=== PATIENT | female | born 1935 | race Caucasian/White ===

== ENCOUNTER 2022-11-11 14:30 | Outpatient (CLI) | payer MEDICARE, OTHER, SELFPAY ==
[2022-11-11 10:18] LABS: Albumin* 4.1 g/dL (3.3-5.0); Chloride* 108 mmol/L (96-114); Sodium* 141 mmol/L (135-149)
[2022-11-11 10:21] LABS: Alanine Aminotransferase* 21 U/L (4-35); Alkaline Phosphatase* 93 U/L (40-150); Aspartate Amino Transferase* 24 U/L (12-35); Bilirubin Total* 0.9 mg/dL (0.1-1.5); Blood Urea Nitrogen* 29 mg/dL (7-30); Carbon Dioxide* 28 mmol/L (20-32); Creatinine* 0.8 mg/dL (0.5-1.5); Estimated Glomerular Filt Rate 71 ml/min; Glucose* 82 mg/dL (60-115); Total Protein* 6.6 g/dL (6.0-8.3)
[2022-11-11 10:22] LABS: Calcium* 10.1 mg/dL (8.4-10.6); Potassium* 4.2 mmol/L (3.6-5.1)
== END 2022-11-11 14:31 | disposition home or self-care (01) ==
PROVIDERS: PCP Family Medicine; Visit Provider Family Medicine
DX: I10 Essential (primary) hypertension (principal)
CPT/HCPCS: 80053

== ENCOUNTER 2023-05-10 08:41 | Emergency (ER) | payer MEDICARE, OTHER, SELFPAY ==
[2023-05-10 08:51] VITALS: BP 151/57; PULSE 57; RESP 18; TEMP 36.7; O2SAT 95; BMI 32.3
--- NOTE | 2023-05-10 09:06 | ED_ITS ---
HPI - General Adult General Chief complaint: Headache/Migraine Stated complaint: Covid+ this morning Time Seen by Provider: 05/10/23 08:44 History of Present Illness HPI narrative: This 87-year-old female comes in stating that she tested for COVID at home yesterday and it was positive. Her symptoms started 3 days ago. She primarily feels fatigued and has a mild headache. She does not report any cough or shortness of breath. She comes in wanting to be sure that it is in fact COVID. Related Data Home Medications Medication Instructions Recorded Confirmed acetaminophen 650 mg 650 mg PO BID 05/14/22 05/10/23 tablet,extended release aspirin 325 mg tablet,delayed 325 mg PO DAILY 05/14/22 05/10/23 release cholecalciferol (vitamin D3) 25 25 mcg PO QDAY 05/14/22 05/10/23 mcg (1,000 unit) capsule multivitamin (Multiple Vitamins 1 tab PO QDAY 05/14/22 05/10/23 tablet) Osteo Bi-Flex PO .QD 11/13/22 12/24/22 Previous Rx's Medication Instructions Recorded atorvastatin 40 mg tablet 40 mg PO .Bedtime #90 tabs 05/14/22 diltiazem HCl 120 mg 120 mg PO DAILY #90 caps 05/14/22 capsule,extended release 24 hr losartan 25 mg tablet 25 mg PO DAILY #90 tabs 05/14/22 metoprolol succinate 50 mg 50 mg PO DAILY #90 tabs 05/14/22 tablet,extended release 24 hr hydrochlorothiazide 25 mg tablet 50 mg (2 x 25 mg) PO DAILY #180 11/14/22 tabs Allergies Allergy/AdvReac Type Severity Reaction Status Date / Time amoxicillin Allergy Mild Rash Verified 05/10/23 08:55 meloxicam AdvReac Mild upset Verified 05/10/23 08:55 stomach Review of Systems Status of ROS: Reports: 10 or more systems reviewed and unremarkable except as noted in History and below Narrative: Constitutional: No fevers, no weight gain or loss. Eyes: No discharge. No vision changes. HENT: No congestion, no sore throat, no ear pain. Cardiovascular: No chest pain, no palpitations. Respiratory: No shortness of breath, no wheezes, no cough. Gastrointestinal: No abdominal pain, no vomiting, no diarrhea. Genitourinary: No dysuria, no hematuria. Musculoskeletal: Normal range of motion. Skin: No rashes, no pruritis. Neurological: No dizziness, weakness, sensory change, speech change. Endo/Heme/Allergies: No bruising or bleeding. No polydipsia. Pysch: no suicidality, no anxiety, no insomnia. All other systems reviewed and are negative. [facility] Medical History (Updated 05/10/23 @ 09:46 by Rory Carreon MD) Osteoarthritis, multiple sites ?M15.9 - Polyosteoarthritis, unspecified (ICD-10) Obesity with body mass index (BMI) of 30.0 to 39.9 ?E66.9 - Obesity, unspecified (ICD-10) Arthropathy of multiple sites ?M12.9 - Arthropathy, unspecified (ICD-10) Squamous cell carcinoma of right lower leg (2018) ?C44.722 - Squamous cell carcinoma of skin of right lower limb, including hip (ICD-10) Hypertension ?I10 - Essential (primary) hypertension (ICD-10) Hyperlipidemia ?E78.5 - Hyperlipidemia, unspecified (ICD-10) Chronic lymphocytic leukemia (10/2017) ?C91.10 - Chronic lymphocytic leukemia of B-cell type not having achieved remission (ICD-10) Atrial fibrillation (03/26/19) ?I48.91 - Unspecified atrial fibrillation (ICD-10) Obstructive sleep apnea treated with continuous positive airway pressure (CPAP) (09/2012) ?G47.33 - Obstructive sleep apnea (adult) (pediatric) (ICD-10) ?Z99.89 - Dependence on other enabling machines and devices (ICD-10) Peripheral edema ?R60.9 - Edema, unspecified (ICD-10) History of recurrent urinary tract infection ?Z87.440 - Personal history of urinary (tract) infections (ICD-10) History of bone density study (2014) ?Z92.89 - Personal history of other medical treatment (ICD-10) Health care directive on file (01/10/21) ?Z78.9 - Other specified health status (ICD-10) Surgical History (Updated 11/13/22 @ 06:29 by Zoila Carnes MD) History of tonsillectomy (10/2017) ?Z90.89 - Acquired absence of other organs (ICD-10) History of laparoscopic cholecystectomy (10/27/06) ?Z90.49 - Acquired absence of other specified parts of digestive tract (ICD- 10) History of cataract extraction (07/2014) ?Z98.49 - Cataract extraction status, unspecified eye (ICD-10) History of blepharoplasty (02/2015) ?Z98.890 - Other specified postprocedural states (ICD-10) History of bilateral ligation of fallopian tubes (1979) ?Z98.51 - Tubal ligation status (ICD-10) History of squamous cell carcinoma excision (07/2019) ?Z98.890 - Other specified postprocedural states (ICD-10) ?Z85.9 - Personal history of malignant neoplasm, unspecified (ICD-10) History of dilation and curettage (1979) ?Z98.890 - Other specified postprocedural states (ICD-10) History of colonoscopy ?Z98.890 - Other specified postprocedural states (ICD-10) Family History (Updated 04/23/22 @ 08:24 by Jassi Clifton) Father Prostate cancer Stroke, Onset Age: 70 Brother Prostate cancer Mother Stroke, Onset Age: 70 Social History (Updated 11/13/22 @ 09:35 by Zoila Carnes MD) Narrative: , 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, 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, 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-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 consumes alcohol exercises 3 times per week-20 min elliptical Smoking Status: Never smoker Do you use any of these nicotine containing products: None Second hand tobacco smoke exposure: No How often do you have a drink containing alcohol: monthly or less How many standard drinks containing alcohol do you have on a typical day: 1 or 2 AUDIT-C Alcohol total score: 1 Non-prescribed substance use: denies use Little interest or pleasure in doing things: several days Feeling down, depressed, or hopeless: several days Exam Narrative: Exam Narrative: Constitutional: Well-developed, well-nourished, no acute distress. HEENT: Normocephalic, atraumatic. Neck: Normal range of motion. Nontender. Supple. Heart: Regular. No murmurs. Normal rate. Intact distal pulses. Lungs: Clear to auscultation. No chest discomfort. No wheezes, rhonchi, or rales. Abdomen: Normal bowel sounds. Nontender. No rebound tenderness. Genitalia: Deferred. Back: No midline tenderness. Normal range of motion. Extremities: Normal range of motion. No injury. Skin: Intact. No rash. Warm. No erythema or pallor. Neurologic: No altered sensation. No weakness. Alert and oriented. Psychiatric: No suicidality. No anxiety or depression. No insomnia. Nursing notes and vitals signs are reviewed. Const: Vital Signs, click to edit/add: Vital Signs - 24 hr 05/10/23 08:51 Temperature 98.1 F Pulse Rate [Pulse Oximeter] 57 L Respiratory Rate 18 Blood Pressure [Ri ght Upper Arm] 151/57 H Pulse Oximetry 95 Oxygen Delivery Me thod Room Air Course Vital Signs Vital signs: Initial Vital Signs Temperature 98.1 F 05/10/23 08:51 Temperature Source Temporal Artery Scan 05/10/23 08:51 Pulse Rate 57 L 05/10/23 08:51 Respiratory Rate 18 05/10/23 08:51 Blood Pressure 151/57 H 05/10/23 08:51 Blood Pressure Mean 88 05/10/23 08:51 Blood Pressure Position Semi-Fowlers 05/10/23 08:51 Pulse Oximetry 95 05/10/23 08:51 Oxygen Delivery Method Room Air 05/10/23 08:51 Vital Signs Temperature 98.1 F 05/10/23 08:51 Pulse Rate 57 L 05/10/23 08:51 Respiratory Rate 18 05/10/23 08:51 Blood Pressure 151/57 H 05/10/23 08:51 Pulse Oximetry 95 05/10/23 08:51 Oxygen Delivery Method Room Air 05/10/23 08:51 Temperature 98.1 F 05/10/23 08:51 Pulse Rate 57 L 05/10/23 08:51 Respiratory Rate 18 05/10/23 08:51 Blood Pressure 151/57 H 05/10/23 08:51 Pulse Oximetry 95 05/10/23 08:51 Oxygen Delivery Method Room Air 05/10/23 08:51 Medical Decision Making MDM Narrative Medical decision making narrative: This patient had a positive home test for COVID done yesterday and returns here to verify these results. Actually the COVID test done here was negative. The patient does have normal vital signs and is not showing any signs of shortness of breath. I advised her to use [id number] medicines as needed and direc ramy. Lab Data Labs: Lab Results 05/10/23 Range/Units 08:59 SARS-CoV-2 (PCR) Negative SARS-CoV-2 (Negative) Discharge Plan Discharge Clinical Impression: Headache Patient Disposition: Home w/ Parent or Adult Condition: Stable Additional Instructions: Use [id number] medicines as needed and directed. Follow up with MD return if worsening. Prescriptions: No Action cholecalciferol (vitamin D3) 25 mcg (1,000 unit) capsule 25 mcg PO QDAY aspirin 325 mg tablet,delayed release (DR/EC) 325 mg PO DAILY acetaminophen 650 mg tablet extended release 650 mg PO BID multivitamin [Multiple Vitamins] Tablet 1 tab PO QDAY atorvastatin 40 mg tablet 40 mg PO .Bedtime Qty: 90 4RF diltiazem HCl 120 mg capsule,extended release 24hr 120 mg PO DAILY Qty: 90 4RF losartan 25 mg tablet 25 mg PO DAILY Qty: 90 4RF metoprolol succinate 50 mg tablet extended release 24 hr 50 mg PO DAILY Qty: 90 4RF Osteo Bi-Flex PO .QD hydrochlorothiazide 25 mg tablet 50 mg PO DAILY Qty: 180 4RF Follow Up/Referrals: Zoila Carnes MD [Primary Care Provider] - Stand Alone Forms: [employer] Info Instructions
[2023-05-10 09:39] LABS: SARS PCR* Negative SARS-CoV-2 (Negative)
== END 2023-05-10 09:54 | disposition home or self-care (01) ==
PROVIDERS: Emergency Provider Emergency Medicine Emergency Medical Services; PCP Family Medicine
DX: Z20.822 Contact with and (suspected) exposure to COVID-19 (principal); R51.9 Headache, unspecified
CPT/HCPCS: 87635; 99282; 99283; 99284

== ENCOUNTER 2023-05-20 09:27 | Outpatient (CLI) | payer MEDICARE, OTHER, SELFPAY | END 2023-05-20 09:28 | disposition home or self-care (01) | PROVIDERS: PCP Family Medicine; Referring Provider Family Medicine; Visit Provider Family Medicine | DX: I10 Essential (primary) hypertension (principal); E78.5 Hyperlipidemia, unspecified; E55.9 Vitamin D deficiency, unspecified; E66.9 Obesity, unspecified | CPT/HCPCS: 80053; 80061; 82306 ==

== ENCOUNTER 2023-06-03 15:13 | Outpatient (CLI) | payer MEDICARE, OTHER, SELFPAY ==
--- NOTE | 2023-06-03 15:30 | CRLHL7_ITS ---
For Patients: As a result of the Century Cures Act, medical imaging exams and procedure reports are released immediately into your electronic medical record. You may view this report before your referring provider. If you have questions, please contact your health care provider. DXA BONE MINERAL DENSITY STUDY Current height (in): 67.5. Weight (lb): 206.0. Menopause age: 53. Ethnicity: White. 1. Have you had a previous hip or vertebral fracture? No. 2. Have you had any fractures during your adult life which did not result from significant trauma (e.g., auto accident)? No. 3. Did either of your parents have a hip fracture? Yes. 4. Do you smoke? No. 5. Have you ever taken Glucocorticoids? No. 6. Do you have rheumatoid arthritis? No. 7. Do you have secondary osteoporosis? No. 8. Do you drink 3 or more alcoholic drinks per day? No. 9. Are you being treated for osteoporosis? No. 10. Have you ever taken any of the following medications: Actonel, Evista, Fosamax, Miacalcin, Reclast, Boniva, Forteo, HRT (i.e. estrogen/hormone therapy), Protelos, Prolia, Vitamin D, Calcium, other ??? please specify. ANSWER: Yes, vitamin D. 11. Do you have any of the following medical conditions: Anorexia or bulimia, asthma or emphysema, end stage renal disease, hyperparathyroidism, any seizure disorders, cancer, inflammatory bowel diseases, hysterectomy, other ??? please specify. ANSWER: Yes, cancer. 12. What was your maximum height (inches)? 67.5. 13. Do you perform weight bearing exercise regularly? No. 14. Do you regularly consume dairy products? Yes. 15. Do you drink caffeinated beverages? Yes. 16. At what age did your period start? 9. 17. Are you premenopausal? No. 18. How many full term pregnancies have you had? Zero. 19. Have you ever missed your period for more than 6 months in a row (not including or menopause)? No. TECHNIQUE: Bone mineral density study was performed using the [employer]. FINDINGS: The results of the study expressed as bone mineral density (BMD) are as follows: Lumbar spine L1 to L4: BMD: 1.381 g/cm2. T-score: 3.0. Z-score: 5.9. Neck Left: BMD: 0.864 g/cm2. T-score: 0.1. Z-score: 2.7. Right: BMD: 0.908 g/cm2. T-score: 0.5. Z-score: 3.1. Total Left: BMD: 1.028 g/cm2. T-score: 0.7. Z-score: 3.0. Right: BMD: 1.004 g/cm2. T-score: 0.5. Z-score: 2.8. IMPRESSION: Normal bone density. OMARI MORGAN MD Diagnostic/Nuclear Medicine Radiologist [email or web address] CAROL/bhe be/Dictated by: Omari Morgan MD @ 06/03/2023 7:07:00 PM (Electronically Signed)
== END 2023-06-03 15:14 | disposition home or self-care (01) ==
LOC: RAD 15:14
PROVIDERS: PCP Family Medicine; Visit Provider Family Medicine
DX: Z78.0 Asymptomatic menopausal state (principal)
CPT/HCPCS: 77080

== ENCOUNTER 2023-08-06 11:01 | Outpatient (CLI) | payer MEDICARE, OTHER, SELFPAY ==
[2023-08-06 11:31] LABS: Basophils Percent Auto 0.4 % (0.0-3.0); Eosinophils Percent Auto 2.5 % (0.0-7.0); Hematocrit 44.8 % (33.0-51.0); Immature Granulocytes Pct Auto 0.2 %; Lymphocytes Percent Auto 51.6 % (20-44); Mean Corpuscular HGB Conc 34 gm/dL (32-36); Mean Corpuscular Hemoglobin 30 pg (26-34); Mean Corpuscular Volume 88 fL (80-100); Monocytes Percent Auto 8.4 % (0.0-11.0); Neutrophils Percent Auto 36.9 % (42.0-72.0); Platelet Count* 169 K/uL (140-440); RDW Coefficient of Variation % 13.2 % (11.5-15.5); Red Blood Count 5.09 m/uL (4.00-5.20); White Blood Count* 12.19 K/uL (4.50-11.00)
[2023-08-06 11:38] LABS: Slide Review Reflex No
[2023-08-06 11:50] LABS: Albumin* 4.1 g/dL (3.3-5.0)
[2023-08-06 11:51] LABS: Chloride* 108 mmol/L (96-114); Potassium* 4.2 mmol/L (3.6-5.1); Sodium* 142 mmol/L (135-149)
[2023-08-06 11:53] LABS: Bilirubin Total* 1.2 mg/dL (0.1-1.5); Creatinine* 0.9 mg/dL (0.5-1.5); Estimated Glomerular Filt Rate 61 ml/min
[2023-08-06 11:54] LABS: Alanine Aminotransferase* 21 U/L (4-35); Alkaline Phosphatase* 107 U/L (40-150); Anion Gap 8 mEq/L (7-15); Aspartate Amino Transferase* 29 U/L (12-35); Blood Urea Nitrogen* 38 mg/dL (7-30); Calcium* 10.7 mg/dL (8.4-10.6); Carbon Dioxide* 26 mmol/L (20-32); Glucose* 100 mg/dL (60-115); Lactate Dehydrogenase* 177 U/L (120-246)
== END 2023-08-06 11:02 | disposition home or self-care (01) ==
PROVIDERS: PCP Family Medicine
DX: C83.01 Small cell B-cell lymphoma, lymph nodes of head, face, and neck (principal)
CPT/HCPCS: 36415; 80053; 83615; 85025

== ENCOUNTER 2023-08-20 14:30 | Outpatient (RCR) | payer MEDICARE, OTHER, SELFPAY ==
--- NOTE | 2023-06-02 11:37 | PT.OPEX ---
PT [place] Outpatient Eval PT [facility] Outpatient Eval Start: 06/01/23 13:26 Freq: Status: Active Protocol: Document 06/02/23 08:03 AMS (Rec: 06/02/23 11:06 AMS [id number]) E-signed By Tiffany Silverio PT Physical Therapy Outpatient Evaluation Insurance Information Recert Due Date 08/26/23 Insurance Name Medicare B Medical Diagnosis Low back pain, unspecified Treating Diagnosis Low back pain M54.50 Muscle weakness M62.81 Referring MD Zoila Carnes MD Subjective Subjective Pt presents to physical therapy with chronic left- sided low back and buttock pain, which has been worse recently. It is usually when she stands longer than 5 minutes or is bent forward to perform household tasks. Denies trauma or injury to low back or hip and states pain has been present for over a year, coming on gradually. Denies numbness or tingling into the lower extremities, bowel or bladder changes, change in symptoms with coughing or sneezing, unrelenting night pain, or work-related injury. She has known widespread osteoarthritis, chronic lymphocytic leukemia (CLL), squamous cell carcinoma, chronic atrial fibrillation, hypertension, and hyperlipidemia. She had X-rays done in May, which revealed degenerative lumbar fact arthropathy in the lumbar spine and CAT scan about three weeks ago. She does take Tylenol as needed and that helped somewhat with her back. Not currently receiving any treatment for her CLL, but follows every 6 months at hematology clinic. Also recently had COVID at the end of April. 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 Pt previously had some spine pain six years ago, which resolved with physical therapy; however, this episode is in a different location. Sites and boundaries of pain: left posterior hip and buttock Nature of pain: sharp Easing factors: Tylenol, rest, sitting down Aggravating factors: standing for long periods, vacuuming, sweeping, bending forward Sleep disturbances: 5 hours/ night (CPAP), low back does not bother her for the most part. Stiffness in the morning , sleeps on left side due to right hip arthritis Previous treatments: physical therapy for previous LBP episode Current exercise: exercises 3 times per week - 20 min on seated elliptical, occasional free weights with 3 lb dumbbells, has tried classes at [address] Functional limitations: cleaning the toilet, emptying the senior ux designer, sweeping and vacuuming, lifting, standing for longer than 5 minutes Goals: Perform ADLs and standing for unlimited time without pain Falls: None in last year Pain Comments Currently 2/10, 8/10 this morning emptying senior ux designer, 0 /10 at best Date of Last Physician Visit 05/22/23 Current Work Status Retired 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 No antalgic gait noted BALANCE -Narrow stance: 10 sec, mild postural sway -Tandem stance: unable to assume or maintain position without assistance -Single leg stance: <1 sec B FUNCTIONAL MOBILITY Double leg squat: WNL, mild discomfort in right hip Glute bridge: unable to perform Transfers: Pt demonstrates difficulty rolling onto side to perform supine to sit transfer; instead sits straight up utilizing upper extremities for assist. Stairs: not assessed, pt utilizes elevator in apartment LUMBAR ROM Flexion: WNL, pain noted in left low back and buttock Extension: 50%, no pain Right Sidebendin%, no pain Left Sidebendin%, no pain Right rotation: 100%, no pain Left rotation: 100%, no pain REPEATED MOVEMENTS: Lumbar flexion: increased symptoms Lumbar extension: no change in symptoms, pain-free THORACIC ROM Flexion: WNL Extension: 50% Right Sidebendin% Left Sidebendin% Right rotation: 100% Left rotation: 100% HIP ROM (R/L) Flexion: 115 deg Extension: 10 deg Internal Rotation: WNL External Rotation: WNL Abduction: WNL LE MMT: Not formally assessed, =3/5 for all lower extremity muscle groups as demonstrated by ROM assessment, except hip extensors (2/5 bilaterally) Functional strength assessment : -5x Kbp-rk-sfemo: 15.5 sec -30-second STS: 9 reps -Glute bridge: unable Abdominal Strength: able to perform posterior pelvic tilt with cueing for TrA activation JOINT MOBILITY/PALPATION -Moderate tenderness noted in left posterior buttock and over sacrum and L4-L5. Mildly increased tone in left buttock area and lumbar paraspinals B . Mild hypomobility with posterior-anterior spring testing of lumbar and thoracic spine. SPECIAL TESTS -Straight leg raise: - -Crossed straight leg raise: - SI/HIP tests -DARSHAN: + bilateral -FADIR, + bilateral -Log roll: - TX: Patient was educated on anatomy, physiology as it relates to current condition and HEP with use of handout/ [employer]. Patient verbalizes understanding and agrees with POC/goals. -Discussed benefits of continued activity and maintaining gym membership. -Discussed progressions and regressions of all exercises in HEP -Soreness rules with goal of symptoms returning to baseline within 24 hours and avoiding onset of sharp pain or >2/10 increase from baseline -Educated pt on log roll technique for getting in and out of bed, option to purchase bedrail for cheap [employer] on [employer] Access Code: [email or web address] URL: [email or web address] Date: 06/02/2023 Prepared by: Tiffany Silverio Exercises - Supine March with Posterior Pelvic Tilt - 1 x daily - 7 x weekly - 3 sets - 10 reps. - Supine Figure 4 Piriformis Stretch - 1 x daily - 7 x weekly - 3 sets - 20-30 seconds hold - Sit to Stand Without Arm Support - 1 x daily - 4 x weekly - 3 sets - 10 reps Attempted prone hip extension on table and completed 10 sets B, but led to onset of sharp 3/10 pain after 6 reps. Lumbar spine rotations in supine x 10 reps B Functional Test Performed & Score Modified Oswestry: 12/50 or 24 % Assessment Assessment/Impression Pt is a pleasant 87-year-old female who presents with concerns of chronic low back pain with high severity and irritability. Pt has medical history significant for chronic lymphocytic leukemia, atrial fibrillation, right > left hip osteoarthritis, lumbar facet arthropathy, and previous episode of low back pain that resolved with physical therapy. On exam, patient demonstrates notable objective findings including decreased lumbar ROM, impaired balance, pain with repeated lumbar flexion, decreased bed mobility, and decreased general lower extremity and trunk strength, leading to difficulties with bending, lifting, household tasks, and standing longer than 5 minutes . Patient is appropriate for skilled physical therapy services to address the above deficits. Pt was agreeable with plan of care and goals established. 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 Pt will demonstrate consistent HEP compliance in 2 sessions to ensure progress in reaching established goals during course of care. 2. Pt will be able to stand for >30 minutes to perform ADLs without pain in 8 sessions. 3. Pt will exhibit 20% improvement on the Modified Oswestry Outcome measure to demonstrate functional improvement and progress towards goals in 8 sessions. 4. Pt will improve 30-second sit to stand by 3 repetitions to improve lower extremity strength in 4 sessions. 5. Pt will demonstrate pain- free lumbar flexion in 4-5 sessions to perform ADLs without pain. Coordination/Communication With Referral Source Treatment Plan/Direct Interventions Gait Training,Manual Therapy, Neuromuscular Re-ed,Self-Care/ Home Management,Therapeutic Activities,Therapeutic Exercises Frequency/Duration 1x/week for 8-10 sessions Patient Will Be Discharged From Therapy Completion of LTG(s),Skills Plateau Evaluation Billing Untimed Code Treatment Minutes 30 Complexity Moderate Certification Information Initial Certification Date 06/02/23 Ending Certification Date 08/26/23 Provider Signature Shows Agreement With POC & Medical Necessity Physician Signature & Date Requested Please Sign/Date Here Physician Comment/Change : Physician NPI Number #
== END 2023-08-21 08:59 | disposition home or self-care (01) ==
PROVIDERS: PCP Family Medicine; Visit Provider Family Medicine
DX: M54.50 Low back pain, unspecified (principal); M62.81 Muscle weakness (generalized); R26.81 Unsteadiness on feet; Z51.89 Encounter for other specified aftercare
CPT/HCPCS: 97110; 97112; 97140; 97162

== ENCOUNTER 2023-11-19 08:30 | Outpatient (CLI) | payer MEDICARE, OTHER, SELFPAY ==
--- OUTSIDE RECORDS SUMMARY | 2023-11-25 17:50 | XMS_ITS | Clinical Summary ---
Author Name Unknown Organization [facility] Address [address] [place] [address] Care Team Providers Care Physician Office Assistant Name Role Phone Elsewhere, Pcp Primary Care Provider Unavailabl e Source Comments Patient records contain information from all sites at [facility]. For routine questions regarding patient records, call [phone] during business hours, M-F 8:00 AM - 5:00 PM Central Time. Record requests for emergency care only can be directed to [phone] at any time.[facility] Allergies Active Allergy Reactions Criticality Noted Date Comments Amoxicillin Rash 05/05/2018 Meloxicam GI intolerance 10/12/2017 Penicillin Rash 02/15/2010 Medications Medication Sig Dispensed Refills Start Date End Date Status GLUCOSAMINE/CHONDR MADDOX A SOD (OSTEO BI-FLEX ORAL) Take 2 tablets by mouth daily. 0 06/25/2016 Active hydroCHLOROthiazide (for_HYDRODIURIL) 25 mg tablet Take 1 tablet by mouth daily. 0 06/08/2017 Active acetaminophen (for_TYLENOL 8 HR) 650 mg ER tablet Take 1,300 mg by mouth every 8 (eight) hours. 0 Active losartan (COZAAR) 25 mg tablet Take 1 tablet by mouth every morning. 0 10/27/2017 Active multivitamin tablet Take 1 tablet by mouth every morning. 0 10/27/2017 Active rosuvastatin (CRESTOR) 10 mg tablet Take 10 mg by mouth daily. 0 Active metoprolol succinate (TOPROL-XL) 50 mg 24 hr tablet TAKE 1 TABLET BY MOUTH ONCE DAILY. DO NOT CRUSH OR CHEW 90 tablet 0 05/26/2020 Active dilTIAZem CD (CARDIZEM CD/CARTIA XT) 120 mg 24 hr capsule TAKE 1 CAPSULE BY MOUTH EVERY DAY 90 capsule 0 05/26/2020 Active UNABLE TO FIND Vitamin D - unsure of units 0 Active atorvastatin (LIPITOR) 40 mg tablet Take 40 mg by mouth at bedtime. 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 I discussed the the management of atrial fibrillation in detail including rate control and rhythm control strategies and indications for rhythm control. Given the self-limited episode of atrial fibrillation I recommended continue with rate control strategy. I discussed with her that if she has symptomatic recurrences of atrial fibrillation one could consider rhythm control strategy. I discussed with her the risk of thromboembolism with atrial fibrillation and indication for anticoagulation and the options. She is agreeable to starting on a DOAC. Will send a prescription for Eliquis after reviewing the EKG. Continue metoprolol, diltiazem at current doses. 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 I asked her to call if her home blood pressures at cardiac rehab per greater than 130. Continue current antihypertensives. Hypercholesterolemia 10/27/2017 Last Assessment & Plan: Continue Crestor. Immunizations Name Administration Dates Next Due Influenza high dose QV(65 ye ars or older) (PF) 08/07/2020 Influenza, Unspecified 08/20/2016,2014,08/21/2014,2012,09/09/2012,08/14/2011,08/28/2010,0 2009,09/02/1999,09/03/1998 PCV13 06/13/2015 PPSV23 09/30/2004 Td (Adult), adsorbed 05/28/2000 Tdap 02/18/2010 Family History Medical History Relation Name Comments Atrial fibrillation Brother Gene Heart failure Brother Gene Neuropathy Brother Gene Basal cell carcinoma Father Dementia Father Stroke Father Dementia Mother Stroke Mother Relation Name Status Comments Brother Gene Father Mother Social History Tobacco Use Types Packs/Day Years Used Date Smoking Tobacco: Never Smokeless Tobacco: Never Humiliation, Afraid, Rape, and Kick questionnair e Answer Date Recorded Within the last year, have y ou been afraid of your partner or ex-partner? No 08/30/2022 Within the last year, have y ou been humiliated or emotionally abused in other ways by your partner or ex-partner? No Within the last year, have y ou been kicked, hit, slapped, or otherwise physically hurt by your partner or ex-partner? No 08/30/2022 Within the last year, have y ou been raped or forced to have any kind of sexual activity by your partner or ex-partner? No 08/30/2022 Social Connection and Isolat ion Panel [NHANES] Answer Date Recorded In a typical week, how many times do you talk on the phone with family, friends, or neighbors? Three times a week 08/30/2022 How often do you get togethe r with friends or relatives? Three times a week 08/30/2022 How often do you attend chur or temple services? More than 4 times per year 08/30/2022 Do you belong to any clubs o r organizations such as zoroastrian groups, unions, fraternal or athletic groups, or school groups? Yes 08/30/2022 How often do you attend meet ings of the clubs or organizations you belong to? Patient declined 08/30/2022 Are you , , di vorced, , never , or living with a partner? 08/30/2022 AUDIT-C Answer Date Recorded Q1: How often do you have a drink containing alc ohol? Monthly or less 08/30/2022 Q2: How many drinks containi ng alcohol do you have on a typical day when you are drinking? 1 or 2 08/30/2022 Q3: How often do you have si x or more drinks on one occasion? Never 08/30/2022 Overall Financial Resource Strain (CARDIA) Answe r Date Recorded How hard is it for you to pa y for the very basics like food, housing, medical care, and heating? Not very hard 08/30/2022 PHQ-2 Answer Date Recorded PHQ-2 Score 0 04/21/2019 [facility] - Occupational Stress Questionnaire Answer Date Recorded Do you feel stress - tense, restless, nervous, or anxious, or unable to sleep at night because your mind is troubled all the time - these days? Only a little 08/30/2022 Exercise Vital Sign Answer Date Recorde d On average, how many days pe r week do you engage in moderate to strenuous exercise (like a brisk walk)? 3 days 08/30/2022 On average, how many minutes do you engage in exercise at this level? 30 min 08/30/2022 Hunger Vital Sign Answer Date Recorded Within the past 12 months, y ou worried that your food would run out before you got the money to buy more. Never true 08/30/20 22 Within the past 12 months, t he food you bought just didn't last and you didn't have money to get more. Never true 08/30/2022 PRAPARE - Transportation Answer Date Re corded In the past 12 months, has l ack of transportation kept you from medical appointments or from getting medications? No 08/16 In the past 12 months, has l ack of transportation kept you from meetings, work, or from getting things needed for daily living? No 08/30/2022 Housing Stability Vital Sign Answer Castro e Recorded In the last 12 months, was t here a time when you were not able to pay the mortgage or rent on time? No 08/30/2022 In the last 12 months, how many places have you lived? 2 08/30/2022 In the last 12 months, was t here a time when you did not have a steady place to sleep or slept in a correction (including now)? No 08/30/2022 Nutrition Answer Date Recorded Nutrition: EVOO Fat Source Yes 08/30 On average, how many serving s of fruits and vegetables do you eat per day (serving size is equal to 1 cup or approximately the size of a tennis ball)? 4-5 08/30/2022 Dental Answer Date Recorded Dental: Regular Dentist Yes 05/30/20 Employment Answer Date Recorded Employment status Retired 08/30/2022 Education Answer Date Recorded What is the highest level of school you have completed or the highest degree you have received? 12th grade 09/08/2019 Sex and Gender Information Value Date Recorded Sex Assigned at Female 01/11/2022 3:49 PM RN INTERNATIONAL Gender Identity Female 04/24/2018 2:50 PM CDT Sexual Orientation Straight 04/24/2018 2: 50 PM CDT Last Filed Vital Signs Vital Sign Reading Time Taken Comments Blood Pressure 147/67 08/13/2023 9:06 AM CDT Pulse 75 08/13/2023 9:06 AM CDT Temperature 35.7 ??C (96.3 ??F) 08/13/2023 9:06 AM CD T Respiratory Rate 16 10/28/2017 12:1 7 PM RN INTERNATIONAL Oxygen Saturation 95% 04/21/2019 11: 08 AM CDT Inhaled Oxygen Concentration - - Weight 95.6 kg (210 lb 12.2 oz) 08/13/2023 9:06 AM CDT Height 171.4 cm (5' 7.48) 08/13/2023 9:06 AM CD T Body Mass Index 32.54 08/13/2023 9:06 AM CDT Plan of Treatment Health Maintenance Due Date Last Done Comments Depression Screening (Annual PHQ-2) 11/16/2022 Creatinine Level (Kidney Function Test) 08/06/2024 08/06/2023, 02/18/2023, 02/18/2023, Additional history exists Potassium Level 08/06/2024 08/06/2023, 04/0 03/2023, 09/04/2022, Additional history exists Sodium Level 08/06/2024 08/06/2023, 08/3 , 04/19/2014, Additional history exists DTaP,Tdap,and Td Vaccines (3 - Td or Tdap) 05/14/2032 05/14/2022, 02/18/2010, 02/18/2010, Additional history exists Pneumococcal vaccine (65+ years) Completed 06/13/2015, 03/18/2015, 09/30/2004, Additional history exists Zoster Vaccines Completed 02/18/2021, 11/17/2020 Fall Risk Screen (Annual) Completed 02/18/2023 COVID-19 Vaccine Completed 08/26/2023, 03/2022, 03/31/2022, Additional history exists Influenza Vaccine Completed 08/26/2023, , 07/04/2021, Additional history exists HPV Vaccines Aged Out No longer eligi ble based on patient's age to complete this topic Medical Devices Implanted Type Area Financial Quantitative Analyst Device Identifier Shelf Expiration Date Model / Serial / Lot Ocular Lens Ocular Lens Eye Advance Directives For more information, please contact: [phone] Documents on File Type Date Recorded Patient Kennel Supervisor Expl anation Advance Directives 06/03/2021 10:40 AM [facility] Care Directive Advance Directives 12/11/2017 12:00 AM Leg acy document. See document viewer. Advance Directives 07/01/2016 12:00 AM Leg acy document. See document viewer. Healthcare Agents on File Name Relationship Healthcare Agent Relationshi p Communication Alexandr Del Angel Spouse Health Care Agent Luis Del Angel First Alternate Health Care Agent Nataliya Becerra Second Alternate Health Care Agent Care Teams Physician Office Assistant Relationship Specialty Start Date End Date Elsewhere, Pcp PCP - General Internal Medicine 04/27/23
--- OUTSIDE RECORDS SUMMARY | 2023-11-25 17:51 | XMS_ITS ---
Author Name Unknown Organization [facility] [place] [facility] Address [address] [place] [address] Care Team Providers Care Concrete Crusher Loader Operator Name Role Phone Unavailable Unavailable Unavailable Surgery Details Not on file Complications Check Surgery Details section. Procedure Estimated Blood Loss Check Surgery Details section. Procedure Findings Check Surgery Details section. Procedure Specimens Taken Check Surgery Details section.
--- OUTSIDE RECORDS SUMMARY | 2023-11-25 17:51 | XMS_ITS | Encounter Summary ---
Author Name Unknown Organization [facility] Address [address] [place] [address] Care Team Providers Care Coffin Maker Name Role Phone Elsewhere, Pcp Primary Care Provider Unavailabl e Encounter Details Date Type Department Care Team (Late st Contact Info) Description 05/25/2023 Clinical Communication Division of Hematology in [place], [place] [address] [place] [address] Theron Monsalve M.D., Ph.D. [address] [place] [address] Social History Tobacco Use Types Packs/Day Years [...] 08/30/2022 How often do you attend chur ch or jewish services? More than 4 times per year 08/30/2022 Do you belong to any clubs o r organizations such as gnosticism groups, unions, fraternal or athletic groups, or [...] Answer Date Recorded PHQ-2 Score 0 04/21/2019 [facility] - Occupational Stress Questionnaire Answer Date [...] place to sleep or slept in a prison (including now)? 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/2022 3:49 PM ACID POLYMERIZATION OPERATOR Gender Identity Female 04/24/2018 2:50 PM CDT Sexual Orientation Straight 04/24/2018 2: 50 PM CDT documented as of this encounter Plan of Treatment Not on file documented as of this encounter Visit Diagnoses Not on filedocumented in this encounter Additional Health Concerns Assessment Noted Time PHQ-9 Depression Total Score: 4 06/13/20 15 8:44 AM CDT documented as of this encounter Care Teams Coffin Maker Relationship Specialty Start Date End Date Elsewhere, Pcp PCP - General Internal Medicine 04/27/23 documented as of this encounter
--- OUTSIDE RECORDS SUMMARY | 2023-11-25 17:51 | XMS_ITS | Encounter Summary ---
Author Name Unknown Organization [facility] Address [address] [place] [address] Care Team Providers Care Food And Beverage Service Manager Name Role Phone Elsewhere, Pcp Primary Care Provider Unavailabl e Reason for Referral * Outpatient (Routine) - Authorized Specialty Diagnoses / Procedures Referred By Contac t Referred To Contact Hematology Oncology Theron Monsalve M.D., Ph.D. [address] [place] [phone] [facility] Referral ID Status Reason Start Date Expiration Date V isits Requested Visits Authorized [id number] Authorized 08/13/2023 08/12/2026 1 1 Scheduling Instructions Patient would like blood draw in [place] if possible Reason for Visit * Outpatient (Routine) - Closed Specialty Diagnoses / Procedures Referred By Contac t Referred To Contact Hematology Oncology Theron Monsalve M.D., Ph.D. [address] [place] [phone] [facility] Referral ID Status Reason Start Date Expiration Date Visits Re quested Visits Authorized [id number] Closed 02/18/2023 02/17/2026 1 1 Encounter Details Date Type Department Care Team ([facility] st Contact Info) Description 08/13/2023 9:15 AM CDT Office Visit Division of Hematology in [place], [place] [address] [place] [address] Theron Monsalve M.D., Ph.D. 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 More than 4 times per year 08/30/2022 Do you belong to any clubs o r organizations such as latter-day groups, unions, fraternal or athletic groups, or [...] Answer Date Recorded PHQ-2 Score 0 04/21/2019 [facility] - [...] place to sleep or slept in a fci (including now)? No 08/30/2022 Nutrition Answer Date Recorded Nutrition: EVOO Fat Source Yes 08/30 On average, how many serving s of fruits and vegetables do you eat per day (serving size is equal to 1 cup or approximately the size of a tennis ball)? 4-5 08/30/2022 Dental Answer Date Recorded Dental: Regular Dentist Yes 05/30/20 21 Employment Answer Date Recorded Employment status Retired 08/30/2022 Education Answer Date Recorded What is the highest level of school you have completed or the highest degree you have received? 12th grade 09/08/2019 Sex and Gender Information Value Date Recorded Sex Assigned at Female 01/11/2022 3:49 PM ARC TRIMMER Gender Identity Female 04/24/2018 2:50 PM CDT Sexual Orientation Straight 04/24/2018 2: 50 PM CDT documented as of this encounter Last Filed Vital Signs Vital Sign Reading Time Taken Comments Blood Pressure 147/67 08/13/2023 9:06 AM CDT Pulse 75 08/13/2023 9:06 AM CDT Temperature 35.7 ??C (96.3 ??F) 08/13/2023 9:06 AM CD T Respiratory Rate - - Oxygen Saturation - - Inhaled Oxygen Concentration - - Weight 95.6 kg (210 lb 12.2 oz) 08/13/2023 9:06 AM CDT Height 171.4 cm (5' 7.48) 08/13/2023 9:06 AM CD T Body Mass Index 32.54 08/13/2023 9:06 AM CDT documented in this encounter Progress Notes * Theron Monsalve M.D., Ph.D. - 08/13/2023 9:15 AM CDT SUBJECTIVE Referring Provider Theron Monsalve M.D., Ph.D. CHIEF COMPLAINT/REASON FOR VISIT Six-month follow-up for patient with history of CLL HISTORY OF PRESENT ILLNESS Oncology History Overview Note The patient was noted in late September, to have tonsillar asymmetry. She was having no pain ordysphagia associated with this. She underwent a CT of the neck demonstrating confirming the abnormality. She was referred to ENT and subsequently underwent tonsillectomy on October 28, 2017. 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 On blood analysis, it was notable that the patient had a peripheral blood lymphocytosis. She also had mild hypercalcemia. 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) 10/28/2017 Initial Diagnosis CLL/SLL CD20 dim positivity, CD19 was positive. On blood analysis, it was notable that the patient had a peripheral blood lymphocytosis. Observation I am seeing the patient back with her present during evaluation. She currently has an ECOG performance status of 0. She denies B symptoms. She has had no hospitalizations nor infections. Her greatest complaint at present is left-sided back pain for which she is undergoing physical therapy which has move the pain to the right side. The following portions of the patient's history were reviewed and updated as appropriate: allergies, current medications, family history, medical history, social history, surgical history, and problem list. REVIEW OF SYSTEMS Musculoskeletal: Positive for back pain. The following systems were negative: Constitutional, Skin, Eyes, ENT, Respiratory, Cardiovascular, Gastrointestinal, Genitourinary, Hematologic, Neurological, Psychiatric OBJECTIVE Weight: 95.6 kg Height: 171.4 cm BSA (Calculated - sq m): 2.13 sq meters BMI (Calculated): 32.5 kg/m?? Blood Pressure: 147/67 BP Location: Left arm Patient Position: Sitting Pulse Rate: 75 Temperature: 35.7 ??C Temp Source: Tympanic PHYSICAL EXAM Vitals reviewed. Constitutional Appearance: She is well-developed and well-nourished. HENT Head: Normocephalic and atraumatic. Nose: Nose normal. Mouth/Throat: Mouth: Oropharynx is clear and moist. Eyes Extraocular Movements: EOM normal. Conjunctiva/sclera: Conjunctivae normal. Pupils: Pupils are equal, round, and reactive to light. Neck Thyroid: No thyromegaly. Cardiovascular Rate and Rhythm: Normal rate and regular rhythm. Pulses: Intact distal pulses. Heart sounds: Normal heart sounds. Pulmonary Effort: Pulmonary effort is normal. Breath sounds: Normal breath sounds. Abdominal Palpations: Abdomen is soft. There is no hepatosplenomegaly or mass. Tenderness: There is no abdominal tenderness. Musculoskeletal General: No edema. Normal range of motion. Cervical back: Normal range of motion. Lymphadenopathy Cervical: No cervical adenopathy. Upper Body: No axillary adenopathy present. Lower Body: No right inguinal adenopathy. No left inguinal adenopathy. Skin General: Skin is warm. Findings: No erythema. Neurological Mental Status: She is alert and oriented to person, place, and time. Deep Tendon Reflexes: Reflexes are normal and symmetric. Psychiatric Mood and Affect: Mood and affect normal. Behavior: Behavior normal. Thought Content: Thought content normal. Judgment: Judgment normal. DIAGNOSTICS I have reviewed the recent relevant labs. No results found. No results found for this or any previous visit (from the past 72 hour(s)). 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 Her hemoglobin is normal, platelets are normal, WBC is stable at 12.19 relative to 12.8 on 02/18/2023. Her LDH remains within normal limits. With this in mind I would recommend ongoing expectant management. I would see her back in 6 months with blood work and a physical exam. She is aware if she were to develop concerns in the interim, I would see her sooner. Follow-up: Return to clinic in 6 months Education We discussed the diagnosis and treatment plan in detail. The patient expressed understanding of thecontent. No apparent learning barriers were identified; learning preferences include listening. I spent 30 minutes face to face and non-face to face caring for the patient today. Signed by: Theron Monsalve M.D., Ph.D. 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 (HCC) Expected: 02/11/2024 (Approximate), Expires: 11/12/2024 Calcium, Total Lab Routine 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 (HCC) Expected: 02/11/2024 (Approximate), Expires: 11/12/2024 CBC with Differential, Blood Lab Routine 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 (HCC) Expected: 02/11/2024 (Approximate), Expires: 11/12/2024 Creatinine with Estimated GFR Lab Routine 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 (HCC) Expected: 02/11/2024 (Approximate), Expires: 11/12/2024 LD (Lactate Dehydrogenase) Lab Routine 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 (HCC) Expected: 02/11/2024 (Approximate), Expires: 11/12/2024 Potassium Lab Routine 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 (HCC) Expected: 02/11/2024 (Approximate), Expires: 11/12/2024 Scheduled Referrals Name Type Priority Associated Diagnoses Order Schedule Hematology office visit (clinic) [facility]; CLL; General Outpatient Referral Routine Expected: 02/11/2024 (Approximate), Expires: 11/12/2024 documented as of this encounter Visit Diagnoses Diagnosis 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
--- OUTSIDE RECORDS SUMMARY | 2023-11-25 17:51 | XMS_ITS | Encounter Summary ---
Author Name Unknown Organization [facility] Address [address] [place] [address] Care Team Providers Care Artist Scientific Name Role Phone Elsewhere, Pcp Primary Care Provider Unavailabl e Encounter Details Date Type Department Care Team (Late st Contact Info) Description 07/09/2005 Historical Ophthalmology [facility]ST O[facility] Fransico Pederson M.D. 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 Does states that every once in awhile she notices that her right eye does become blurred. No other visual changes or concerns at this time. No flashing lights. IMPRESSION / REPORT / PLAN #1 Posterior vitreous collapse right eye Has posterior vitreous detachment right eye. No retinal breaks. Discussed symptoms of retinal detachment-to be seen immediately for these. #2 Cataract both eyes Mild, not visually signficant, observe. #3 Epiretinal membrane right>left Vision not affected enough to warrant surgery. Recommend continued annual exams at home, return here if vision worsens or other concerns arise. DIAGNOSIS #1 Posterior vitreous collapse right eye #2 Cataract both eyes #3 Epiretinal membrane right>left CDM Reports - [employer] Id: [id number] Status: Fnl documented in this encounter Plan of Treatment Not on file documented as of this encounter Visit Diagnoses Not on filedocumented in this encounter Care Teams Artist Scientific Relationship Specialty Start Date End Date Elsewhere, Pcp PCP - General Internal Medicine 04/27/23 documented as of this encounter
--- OUTSIDE RECORDS SUMMARY | 2023-11-25 17:51 | XMS_ITS | Encounter Summary ---
Author Name Unknown Organization [facility] Address [address] [place] [address] Care Team Providers Care Psychology Teacher Name Role Phone Franchesca Beauchamp APRN, F.N.P. 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 [address] [place] [phone] [facility] Referral ID Status Reason Start Date Expiration Date Visits Re quested Visits Authorized [id number] Closed 09/04/2022 09/04/2023 1 1 Encounter Details Date Type Department Care Team (Latest Contact Info) Description 02/18/2023 8:20 AM CDT - 02/18/2023 11:59 PM CDT Hospital Encounter Department of Radiology, [facility], in [place], [place] [address] [place] [phone] Eva Hanley APRN, C.N.P., D.N.P. 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 More than 4 times per year 08/30/2022 Do you belong to any clubs o r organizations such as jainism groups, unions, fraternal or athletic groups, or [...] Answer Date Recorded PHQ-2 Score 0 04/21/2019 [facility] [place] [facility] Occupat ional Health - Occupational Stress [...] place to sleep or slept in a m[facility]p (including now)? 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 Gender Identity Female 04/24/2018 2:50 PM CDT Sexual Orientation Straight 04/24/2018 2: 50 PM CDT documented as of this encounter Last Filed Vital Signs Vital Sign Reading Time Taken Comments Blood Pressure - - Pulse - - Temperature - - Respiratory Rate - - Oxygen Saturation - - Inhaled Oxygen Concentration - - Weight 96 kg (211 lb 10.3 oz) 02/18/2023 8:00 AM CDT Height - - Body Mass Index 32.64 09/04/2022 3:16 PM CDT documented in this encounter Medications at Time of Discharge Medication Sig Dispensed Refills Start Date End Date acetaminophen (for_TYLENOL 8 HR) 650 mg ER tablet Take 1,300 mg by mouth every 8 (eight) hours. 0 atorvastatin (LIPITOR) 40 mg tablet Take 40 mg by mouth at bedtime. 0 12/22/2022 dilTIAZem CD (CARDIZEM CD/CARTIA XT) 120 mg 24 hr capsule TAKE 1 CAPSULE BY MOUTH EVERY DAY 90 capsule 0 05/26/2020 GLUCOSAMINE/CHONDR MADDOX A SOD (OSTEO BI-FLEX ORAL) Take 2 tablets by mouth daily. 0 06/25/2016 hydroCHLOROthiazide (for_HYDRODIURIL) 25 mg tablet Take 1 tablet by mouth daily. 0 06/08/2017 losartan (COZAAR) 25 mg tablet Take 1 tablet by mouth every morning. 0 10/27/2017 metoprolol succinate (TOPROL-XL) 50 mg 24 hr tablet TAKE 1 TABLET BY MOUTH ONCE DAILY. DO NOT CRUSH OR CHEW 90 tablet 0 05/26/2020 multivitamin tablet Take 1 tablet by mouth every morning. 0 10/27/2017 rosuvastatin (CRESTOR) 10 mg tablet Take 10 mg by mouth daily. 0 UNABLE TO FIND Vitamin D - unsure of units 0 ascorbic acid-bioflavonoids 1,000-100 mg tablet extended release Take 1 tablet by mouth daily. 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) CT CHEST WITH IV CONTRAST RAD - Routine (most inpatients and all outpatients) 02/18/2023 9:19 AM CDT 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 Narrative 02/18/2023 10:48 AM CDT EXAM: ??CT ABDOMEN PELVIS WITH IV CONTRAST COMPARISON: ??CT abdomen pelvis 12/07/2020. FINDINGS: ??Spleen is normal in size. Calcified splenic granulomas. No suspicious lymphadenopathy. No suspicious hepatic lesions. Small hepatic cysts. Cholecystectomy. Fatty pancreatic atrophy. Adrenal glands are unremarkable. Renal cysts. Nondilated loops of bowel. Small gastroesophageal hiatal hernia. Colonic diverticulosis. No free fluid. Degenerative changes of the spine, SI joints, and hips. No suspicious osseous lesions. This examination was performed in conjunction with a CT of the chest, which will be reported separately. Procedure Note Ryann Martinez M.D. - 02/18/2023 EXAM: CT ABDOMEN PELVIS WITH IV CONTRAST COMPARISON: CT abdomen pelvis 12/07/2020. FINDINGS: Spleen is normal in size. Calcified splenic granulomas. No suspicious lymphadenopathy. No suspicious hepatic lesions. Small hepatic cysts. Cholecystectomy. Fattypancreatic atrophy. Adrenal glands are unremarkable. Renal cysts. Nondilated loops of bowel.Small gastroesophageal hiatal hernia. Colonic diverticulosis. No free fluid. Degenerative changes of the spine, SI joints, and hips. No suspiciousosseous lesions. This examination was performed in conjunction with a CT of the chest,which will be reported separately. IMPRESSION: No evidence of lymphoma in the abdomen or pelvis. Eva Hanley APRN, C.N.P., D.N.P. IMG CT PROCEDURES * CT Chest with IV Contrast (02/18/2023 9:19 AM CDT) Anatomical Region Laterality Modality Chest, Thoracic RST LOS, Tho racic ARZ LOS, Thoracic ARZ LOS, Thoracic FLA LOS N/A Computed Tomography, Compute d Tomography 02/18/2023 9:15 AM CDT Impressions 02/18/2023 10:20 AM CDT Stable examination. No findings to specifically suggest residual or recurrent lymphoma within the chest. Narrative 02/18/2023 10:20 AM CDT EXAM: CT CHEST WITH IV CONTRAST the study was obtained in association with a CT of the abdomen and pelvis. That study is reported separately. COMPARISON: [facility] examinations from 12/07/2020, 11/26/2018, and 12/10/2017. FINDINGS: A 9 mm nodule within the lingula centrally (series 3, image 304) is stable from prior studies. Bilateral calcified granulomas. A few additional tiny nodules are not calcified (for example right upper lobe, series 3, image 138; left upper lobe, series 3, image 138) but are also stable from prior studies. These nodules should be benign. Mild basilar fibrosis, similar to previous studies. 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 Mild enlargement of the central pulmonary arteries is stable. Mild vascular calcification. No significant mediastinal or hilar lymph node enlargement. Calcified left hilar lymph node. Heterogeneous nodular enlargement of the thyroid gland is stable. Small hiatal hernia. Benign-appearing breast calcifications bilaterally. A small focus of sclerosis within the left scapula is stable. Procedure Note Jason Vega M.D., Ph.D. - 02/18/2023 EXAM: CT CHEST WITH IV CONTRAST the study was obtained in association witha CT of the abdomen and pelvis. That study is reported separately. COMPARISON: [facility] examinations from 12/07/2020, 11/26/2018, and12/10/2017. FINDINGS: A 9 mm nodule within the lingula centrally (series 3, image 304) is stablefrom prior studies. Bilateral calcified granulomas. A few additional tiny nodules are notcalcified (for example right upper lobe, series 3, image 138; left upper lobe, series 3, image 138) butare also stable from prior studies. These nodules should be benign. Mild basilar fibrosis,similar to previous studies. Partial anomalous pulmonary venous return from the left superior pulmonaryvein, as previously demonstrated. Mild enlargement of the central pulmonary arteries isstable. Mild vascular calcification. No significant mediastinal or hilar lymphnode enlargement. Calcified left hilar lymph node. Heterogeneous nodular enlargement of the thyroidgland is stable. Small hiatal hernia. Benign-appearing breast calcifications bilaterally. A small focus ofsclerosis within the left scapula is stable. IMPRESSION: Stable examination. No findings to specifically suggest residual orrecurrent lymphoma within the chest. Eva Hanley APRN, C.N.P., D.N.P. IMG CT PROCEDURES * Creatinine, POCT (02/18/2023 8:46 AM CDT) [facility] Creatinine, POCT, B 0.8 0.6 - 1.0 mg/dL 02/18/2023 8:48 AM CDT [facility] Comment: ----ADDITIONAL INFORMATION---- Performed at the Point of Care Blood 02/18/2023 8:46 AM CDT 02/18/2023 8:48 AM CDT Unknown Provider LAB POCT ORDERABLES - DEVICE POC [facility] [address] [place] [address], [facility] POC [address] [place] [address] * Creatinine, POCT (02/18/2023 8:46 AM CDT) [facility] Estimated GFR (eGFR), POCT 71 >=60 mL/min/BSA 02/18/2023 8:48 AM CDT [facility] Comment: Estimated GFR calculated using the 2020 CKD_EPI creatinine equation. 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) documented in this encounter Administered Medications Inactive Administered Medications - up to 3 most recent administrations Medication Order MAR Action Action Date Dose Rate Site iohexoL 300 mg iodine/mL solution 150 mL (OMNIPAQUE) 150 mL, intravenous, Once in imaging, contrast, Starting on Thu02/18/23 at 0909, For 1 dose Given 02/18/2023 9:11 AM CDT 140 mL sodium chloride (PF) 0.9 % injection 1-100 mL 1-100 mL, intravenous, Once, On Thu02/18/23 at 0845, For 1 dose, Imaging Protocol Orders Given 02/18/2023 9:07 AM CDT 50 mL documented in this encounter Additional Health Concerns Assessment Noted Time PHQ-9 Depression Total Score: 4 06/13/20 15 8:44 AM CDT documented as of this encounter Care Teams Psychology Teacher Relationship Specialty Start Date End Date Franchesca Beauchamp APRN, F.N.P. [address] [facility] [address] [place] [phone] PCP - General 04/30/17 04/26/23 documented as of this encounter
--- OUTSIDE RECORDS SUMMARY | 2023-11-25 17:51 | XMS_ITS | Referral Summary ---
Author Name Unknown Organization [facility] Address [address] [place] [address] Care Team Providers Care Office Administration Instructor Name Role Phone Elsewhere, Pcp Primary Care Provider Unavailabl e Source Comments Patient records contain information from all sites at [facility]. For routine questions regarding patient records, call [phone] during business hours, M-F 8:00 AM - 5:00 PM Central Time. Record requests for emergency care only can be directed to [phone] at any time.[facility] Allergies Active Allergy Reactions Criticality Noted Date [...] 09/30/2004 Td (Adult), adsorbed 05/28/2000 Tdap 02/18/2010 Social History Tobacco Use Types Packs/Day Years [...] week 08/30/2022 How often do you attend up health system or roman catholic services? More than 4 times per year 08/30/2022 Do you belong to any clubs o r organizations such as synagogue groups, unions, fraternal or athletic groups, or [...] Answer Date Recorded PHQ-2 Score 0 04/21/2019 [facility] [place] [facility] Occupat ional [facility] - Occupational Stress Questionnaire Answer Date Recorded [...] place to sleep or slept in a half-way (including now)? 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 Oxygen Saturation 95% 04/21/2019 11: 08 AM CDT Inhaled Oxygen Concentration - - Weight 95.6 kg (210 lb 12.2 oz) 08/13/2023 9:06 AM CDT Height 171.4 cm (5' 7.48) 08/13/2023 9:06 AM CD T Body Mass Index 32.54 08/13/2023 9:06 AM CDT Plan of Treatment Not on file Medical Devices Implanted Type Area Manager Mission Device Identifier Shelf Expiration Date Model / Serial / Lot Ocular Lens Ocular Lens Eye Advance Directives For more information, please contact: [phone] Documents on File Type Date Recorded Patient Metal Bumper Expl anation Advance Directives 06/03/2021 10:40 AM [facility] Care Directive Advance Directives 12/11/2017 12:00 AM Leg acy document. See document viewer. Advance Directives 07/01/2016 12:00 AM Leg acy document. See document viewer. Healthcare Agents on File Name Relationship [facility]r Del Angel Spouse Health Care Agent Luis Del Angel First Alternate Health Care Agent Nataliya Becerra Second Alternate Health Care Agent Care Teams Office Administration Instructor Relationship Specialty Start Date End Date Elsewhere, Pcp PCP - General Internal Medicine 04/27/23
--- OUTSIDE RECORDS SUMMARY | 2023-11-25 17:51 | XMS_ITS | Encounter Summary ---
Author Name Unknown Organization [facility] Address [address] [place] [address] Care Team Providers Care Data Collection Technician Name Role Phone Franchesca Beauchamp APRN, F.N.P. Primary Care Provid er Encounter Details Date Type Department Care Team (Latest Contact Info) Description 02/18/2023 7:41 AM CDT - 02/18/2023 8:19 AM CDT Hospital Encounter Department of Laboratory Medicine and Pathology, [facility], in [place], [place] [address] [place] [address] Eva Hanley APRN, C.N.P., D.N.P. [address] [place] [address] Small Cell B Cell Lymphoma Lymph Nodes [...] week 08/30/2022 How often do you attend [facility] or shinto services? More than 4 times per year 08/30/2022 Do you belong to any clubs o r organizations such as muslim groups, unions, fraternal or athletic groups, or [...] Answer Date Recorded PHQ-2 Score 0 04/21/2019 [facility] [place] of Occupat ional Health - Occupational Stress [...] place to sleep or slept in a longterm (including now)? 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) ASPARTATE AMINOTRANSFERASE (AST), S/P Routine 02/18/2023 7:49 AM CDT 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) POTASSIUM, S/P Routine 02/18/2023 7:49 AM CDT 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) ALKALINE PHOSPHATASE, S/P Routine 02/18/2023 7:49 AM CDT 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) LACTATE DEHYDROGENASE (LD), S Routine 02/18/2023 7:49 AM CDT 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) CREATININE WITH EGFR, S/P Routine 02/18/2023 7:49 AM CDT 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) CALCIUM, TOT, S/P Routine 02/18/2023 7:4 9 AM CDT 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) BILIRUBIN, TOT, S/P Routine 02/18/2023 7 :49 AM CDT 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) documented in this encounter Results * (ABNORMAL) SPSMA Result (02/18/2023 7:49 AM CDT) Neutrophilic Segs and Bands 41(L) 50 - 75 % 02/18/2023 9:46 AM CDT [facility] Lymphocytes 53(H) 18 - 42 % 02/18/2023 9:46 AM CDT [facility] Monocytes 2 2 - 11 % 02/18/2023 9:46 AM CDT [facility] Eosinophils 3 1 - 3 % 02/18/2023 9:46 AM CDT [facility] Basophils 1 0 - 2 % 02/18/2023 9:46 AM CDT [facility] Fragile Cells Moderate 02/18/2023 9:46 AM CDT [facility] Manual Absolute Neutrophil Count 5.25 1.56 - 6.45 x10(9)/L 02/18/2023 9:46 AM CDT [facility] Comment: ----ADDITIONAL INFORMATION---- The manual absolute neutrophil count is derived from a manual differential count and therefore is not exactly comparable to the automated absolute neutrophil count. Interpretation SeeComment 02/18/2023 9:46 AM CDT [facility] Comment: The blood smear findings are consistent with the previous diagnosis of chronic lymphoproliferative disorder. Reviewed by: Ethan 02/18/2023 9:46 AM CDT [facility] Blood 02/18/2023 7:49 AM CDT 02/18/2023 8:13 AM CDT Na Gonzales APRN.N.P., D.N.P. LAB BLOOD ADD-ON Performing Organization Address City/[facility]/ZIP Co de Phone Number [facility] [address] [place] [address], [facility] [address] [place] [address] * Potassium (02/18/2023 7:49 AM CDT) Potassium, S 4.2 3.6 - 5.2 mmol/L 02/18/2023 8:55 AM CDT DT Blood (Blood, Venous) 02/18/2023 7:49 AM CDT 02/18/2023 8:28 AM CDT Eva Hanley APRN, C.N.P., D.N.P. LAB BLOOD ADD-ON Performing Organization Address City/[facility]/ZIP Co de Phone Number [facility] [address] [place] [address] * LD (Lactate Dehydrogenase) (02/18/2023 7:49 AM CDT) Lactate Dehydrogenase (LD), S 180 122 - 222 U/L 02/18/2023 8:55 AM CDT DTL Blood (Blood, Venous) 02/18/2023 7:49 AM CDT 02/18/2023 8:28 AM CDT Na Gonzales APRN.N.P., D.N.P. LAB BLOOD NON ADD-ON Performing Organization Address City/[facility] [place] [address] * Creatinine with Estimated GFR (02/18/2023 7:49 AM CDT) Creatinine 0.88 0.59 - 1.04 mg/dL 02/18/2023 8:55 AM CDT DTL Estimated GFR (eGFR) 64 >=60 mL/min/BSA 02/18/2023 8:55 AM CDT [facility] Comment: Estimated GFR calculated using the 2020 CKD_EPI creatinine equation. Blood (Blood, Venous) 02/18/2023 7:49 AM CDT 02/18/2023 8:28 AM CDT Na Gonzales APRN.N.P., D.N.P. LAB BLOOD ADD-ON Performing Organization Address [facility] [place] [address] * (ABNORMAL) CBC with Differential, Blood (02/18/2023 7:49 AM CDT) Hemoglobin 15.8(H) 11.6 - 15.0 g/dL 02/18/2023 8:32 AM CDT DTL Hematocrit 47.6(H) 35.5 - 44.9 % 02/18/2023 8:32 AM CDT DTL Erythrocytes 5.36(H) 3.92 - 5.13 x10(12)/L 02/18/2023 8:32 AM CDT DTL MCV 88.8 78.2 - 97.9 fL 02/18/2023 8:32 AM CDT DTL RBC Distrib Width 13.5 12.2 - 16.1 % 02/18/2023 8:32 AM CDT DTL Platelet Count 178 157 - 371 x10(9)/L 02/18/2023 8:32 AM CDT DTL Leukocytes 12.8(H) 3.4 - 9.6 x10(9)/L 02/18/2023 8:32 AM CDT DTL Neutrophils SeeComment 1.56 - 6.45 x10(9)/L 02/18/2023 9:45 AM CDT DTL Comment:Auto-diff results no t valid. See manual differential. Blood (Blood, Venous) 02/18/2023 7:49 AM CDT 02/18/2023 8:13 AM CDT Eva Hanley APRN, Na.N.P., D.N.P. LAB BLOOD ADD-ON Performing Organization Address City/[facility]/[place] [address] * (ABNORMAL) Calcium, Total (02/18/2023 7:49 AM CDT) Calcium, Total, S 10.8(H) 8.8 - 10.2 mg/dL 02/18/2023 9:04 AM CDT DTL Blood (Blood, Venous) 02/18/2023 7:49 AM CDT 02/18/2023 8:28 AM CDT Eva Hanley APRN, C.N.P., D.N.P. LAB BLOOD ADD-ON Performing Organization Address City/[facility]/ZIP Co de Phone Number [facility] [address] [place] [address] * Bilirubin, Total (02/18/2023 7:49 AM CDT) Bilirubin, Total, S 1.2 <=1.2 mg/dL 02/18/2023 8:55 AM CDT DTL Blood (Blood, Venous) 02/18/2023 7:49 AM CDT 02/18/2023 8:28 AM CDT Na Gonzales APRN.N.P., D.N.P. LAB BLOOD ADD-ON [facility] [address] [place] [address], [facility] [address] [place] [address] * AST (Aspartate Aminotransferase) (02/18/2023 7:49 AM CDT) Aspartate Aminotransferase (AST), S 19 8 - 43 U/L 02/18/2023 8:55 AM CDT DT Blood (Blood, Venous) 02/18/2023 7:49 AM CDT 02/18/2023 8:28 AM CDT Na Gonzales APRN.N.P., D.N.P. LAB BLOOD ADD-ON Performing Organization Address City/[facility]/ZIP Co de Phone Number [facility] [address] [place] [address], [facility] [address] [place] [address] * Alkaline Phosphatase (02/18/2023 7:49 AM CDT) Alkaline Phosphatase, S 100 35 - 104 U/L 02/18/2023 8:55 AM CDT DT Blood (Blood, Venous) 02/18/2023 7:49 AM CDT 02/18/2023 8:28 AM CDT Na Gonzales APRN.N.P., D.N.P. 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 [address] [facility] [address] [place] [address] PCP - General 04/30/17 04/26/23 documented as of this encounter
--- OUTSIDE RECORDS SUMMARY | 2023-11-25 17:51 | XMS_ITS ---
Author Name Unknown Organization [facility] Address [address] [place] [address] Care Team Providers Care Nailing Machine Feeder Name Role Phone Elsewhere, Pcp Primary Care Provider Unavailabl e Active Problems Problem Noted Date Diagnosed Date [...] 10/27/2017 Last Assessment & Plan: Continue Crestor. Current Oncology Plans No current plan information found. Past Plans No past plan information found. Radiation Treatments * No radiation treatments are documented for this [facility]. Treatments may have been administered in another system. Lifetime Dose Tracking * Chemical Lifetime Dose Automatic Entry Manual Entr y Radiation 333.9 mGy 333.9 mGy 0 mGy Fluoro Time 2.85 minutes 2.85 minutes 0 minutes
--- OUTSIDE RECORDS SUMMARY | 2023-11-25 17:51 | XMS_ITS | Encounter Summary ---
Author Name Unknown Organization [facility] Address [address] [place] [address] Care Team Providers Care Seafood Service Team Member Name Role Phone Elsewhere, Pcp Primary Care Provider Unavailabl e Reason for Visit * Reason Onset Date Comments External Lab Entry 08/06/2023 Encounter Details Date Type Department Care Team (Latest Contact Info) Description 08/07/2023 Clinical Communication Division of Hematology in [place], [place] [address] [place] [address] Theron Monsalve M.D., Ph.D. [address] [place] [address] External Lab Entry Social History Tobacco Use Types Packs/Day Years [...] week 08/30/2022 How often do you attend [facility] or mu-ism services? More than 4 times per year 08/30/2022 Do you belong to any clubs o r organizations such as mormonism groups, unions, fraternal or athletic groups, or [...] Answer Date Recorded PHQ-2 Score 0 04/21/2019 [facility] of Occupat ional Health - Occupational [...] money to buy more. Never true 08/30/20 Within the past 12 months, t he [...] place to sleep or slept in a fdc (including now)? 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 - 08/07/2023 3:48 PM CDT Labs reviewed and entered into the patient's chart in preparation for scheduled appointments next week. * Telephone Encounter - Li Riggs Rukhsana - 08/07/2023 2:28 PM CDT Outside labs collected on 08/06/2023 have been received. The fax has been scanned into the patient record via [employer], and the CBC results are as noted below. Hemoglobin: 15.0 Hematocrit: 44.8 WBC: 12.19 ANC: 4.5 Platelets: 169 Please note: Are there additional labs reported on the outside report? Yes documented in this encounter Plan of Treatment Not on file documented as of this encounter Procedures Procedure Name Priority Date/Time Associated Diagnosis Comments HEMATOLOGY/ONCOLOGY - BLOOD, EXTERNAL LAB RESULTS Routine 08/06/2023 documented in this encounter Results * Hematology/Oncology - Blood, External Lab Results (08/06/2023) EXT Hemoglobin 15.0 SCANN ED REPORT EXT Hematocrit 44.8 SCANN ED REPORT EXT Erythrocytes 5.09 SCA NNED REPORT EXT MCV 88 SCANNED REPORT EXT Leukocytes 12.19 SCANN ED REPORT EXT Absolute Neutrophil Count 4.5 SCANNED REPORT EXT Platelet Count 169 S CANNED REPORT EXT AST 29 SCANNED REPORT EXT ALT 21 SCANNED REPORT EXT Alkaline Phosphatase 107 SCANNED REPORT EXT Bilirubin, Total 1.2 mg/dL SCANNED REPORT EXT Lactate Dehydrogenase (LD), S 177 SCANNED REPORT EXT Sodium 142 mmol/L SCANNED REPORT EXT Potassium 4.2 SCANNE D REPORT EXT Calcium, Total 10.7 S CANNED REPORT EXT Creatinine 0.9 mg/dL SCANN ED REPORT EXT Total Protein 7.0 SC ANNED REPORT EXT Albumin 4.1 g/dL SCANNED REPORT EXT Chloride 108 SCANNED REPORT EXT Carbohydrate Ag 19-9, S 38 SCANNED REPORT Blood 08/06/2023 Historical Provider LAB BLOOD NON ADD-ON SCANNED REPORT documented in this encounter Visit Diagnoses Not on filedocumented in this encounter Additional Health Concerns Assessment Noted Time PHQ-9 Depression Total Score: 4 06/13/20 15 8:44 AM CDT documented as of this encounter Care Teams Seafood Service Team Member Relationship Specialty Start Date End Date Elsewhere, Pcp PCP - General Internal Medicine 04/27/23 documented as of this encounter
--- OUTSIDE RECORDS SUMMARY | 2023-11-25 17:51 | XMS_ITS | Encounter Summary ---
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 [address] [place] [address] [facility] Referral ID Status Reason Start Date Expiration Date V isits Requested Visits Authorized [id number] Authorized 05/22/2023 05/21/2024 1 1 Encounter Details Date Type Department Care Team (Late st Contact Info) Description 05/22/2023 [facility] [address] [place] [address] Zoila Carnes M.D. 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 More than 4 times per [...] Answer Date Recorded PHQ-2 Score 0 04/21/2019 [place] of Occupat ional Health - Occupational Stress [...] place to sleep or slept in a long-term (including now)? 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
--- OUTSIDE RECORDS SUMMARY | 2023-11-25 17:51 | XMS_ITS | Encounter Summary ---
Author Name Unknown Organization [facility] Address [address] [place] [id number] Care Team Providers Care Wastewater Analyst Lab Analyst Name Role Phone Franchesca Beauchamp APRN, F.N.P. Primary Care Provid er Reason for Referral * Outpatient (Routine) - Closed Specialty Diagnoses / Procedures Referred By Ricky walters Referred To Contact Hematology Oncology Theron Monsalve M.D., Ph.D. [address] [place] [phone] [facility] Referral ID Status Reason Start Date Expiration Date Visits Re quested Visits Authorized [id number] Closed 02/18/2023 02/17/2026 1 1 Reason for Visit * Outpatient (Routine) - Closed Specialty Diagnoses / Procedures Referred By Ricky walters Referred To Contact Hematology Oncology Eva Hanley APRN, C.N.P., D.N.P. [address] [place] [phone] [facility] Referral ID Status Reason Start Date Expiration Date Visits Re quested Visits Authorized [id number] Closed 09/04/2022 09/03/2025 1 1 Encounter Details Date Type Department Care Team (Late st Contact Info) Description 02/18/2023 1:30 PM CDT Office Visit Division of Hematology in [place], [place] [address] [place] [phone] Theron Monsalve M.D., Ph.D. 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 More than 4 times per year 08/30/2022 Do you belong to any clubs o r organizations such as evangelical groups, unions, fraternal or athletic groups, or [...] Answer Date Recorded PHQ-2 Score 0 04/21/2019 [facility] - Occupational Stress [...] place to sleep or slept in a halfway (including now)? 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 Gender Identity Female 04/24/2018 2:50 PM CDT Sexual Orientation Straight 04/24/2018 2: 50 PM CDT documented as of this encounter Last Filed Vital Signs Vital Sign Reading Time Taken Comments Blood Pressure 147/82 02/18/2023 1:12 PM CDT Pulse 63 02/18/2023 1:12 PM CDT Temperature 35.6 ??C (96.1 ??F) 02/18/2023 1:12 PM CD T Respiratory Rate - - Oxygen Saturation - - Inhaled Oxygen Concentration - - Weight 96.1 kg (211 lb 12 oz) 02/18/2023 1:12 PM CDT Height 171.4 cm (5' 7.48) 02/18/2023 1:12 PM CD T Body Mass Index 32.69 02/18/2023 1:12 PM CDT documented in this encounter Progress Notes * Theron Monsalve M.D., Ph.D. - 02/18/2023 1:30 PM CDT SUBJECTIVE Referring Provider Eva aHnley APRN, C.N.P., D.N.P. CHIEF COMPLAINT/REASON FOR VISIT Disease status evaluation for patient with CLL/SLL HISTORY OF PRESENT ILLNESS Oncology History Overview [...] denies B symptoms. She has had no recent hospitalizations nor infections. She does remark that occasionally she will have days where she feels extremely fatigued which then will improve in a day or so. She does have a known history of intermittent AFib. The following portions of the patient's history were reviewed and updated as appropriate: allergies, current medications, family history, medical history, social history, surgical history, and problem list. REVIEW OF SYSTEMS The following systems were negative: Constitutional, Skin, Eyes, ENT, Respiratory, Cardiovascular, Gastrointestinal, Genitourinary, Hematologic, Musculoskeletal, Neurological, Psychiatric OBJECTIVE Weight: 96.1 kg Height: 171.4 cm BSA (Calculated - sq m): 2.14 sq meters BMI (Calculated): 32.7 kg/m?? Blood Pressure: 147/82 BP Location: Left arm Patient Position: Sitting Pulse Rate: 63 Temperature: 35.6 ??C Temp Source: Tympanic PHYSICAL EXAM Vitals [...] DIAGNOSTICS I have reviewed the recent relevant labs and CT. CT Chest with IV Contrast Result Date: 02/18/2023 Impression: Stable examination. No findings to specifically suggest residual or recurrent lymphoma within the chest. CT Abdomen Pelvis with IV Contrast Result Date: 02/18/2023 Impression: No evidence of lymphoma in the abdomen or pelvis. Recent Results (from the past 72 hour(s)) Alkaline Phosphatase Collection Time: 02/18/23 7:49 AM Result Value Alkaline Phosphatase, S 100 AST (Aspartate Aminotransferase) Collection Time: 02/18/23 7:49 AM Result Value Aspartate Aminotransferase (AST), S 19 Bilirubin, Total Collection Time: 02/18/23 7:49 AM Result Value Bilirubin, Total, S 1.2 Calcium, Total Collection Time: 02/18/23 7:49 AM Result Value Calcium, Total, S 10.8 (H) CBC with Differential, Blood Collection Time: 02/18/23 7:49 AM Result Value Hemoglobin 15.8 (H) Hematocrit 47.6 (H) Erythrocytes 5.36 (H) MCV 88.8 RBC Distrib Width 13.5 Platelet Count 178 Leukocytes 12.8 (H) Neutrophils SeeComment Creatinine with Estimated GFR Collection Time: 02/18/23 7:49 AM Result Value Creatinine 0.88 Estimated GFR (eGFR) 64 LD (Lactate Dehydrogenase) Collection Time: 02/18/23 7:49 AM Result Value Lactate Dehydrogenase (LD), S 180 Potassium Collection Time: 02/18/23 7:49 AM Result Value Potassium, S 4.2 SPSMA Result Collection Time: 02/18/23 7:49 AM Result Value Neutrophilic Segs and Bands 41 (L) Lymphocytes 53 (H) Monocytes 2 Eosinophils 3 Basophils 1 Fragile Cells Moderate Manual Absolute Neutrophil Count 5.25 Interpretation SeeComment Reviewed by: Tech Creatinine, POCT Collection Time: 02/18/23 8:46 AM Result Value Estimated GFR (eGFR), POCT 71 Creatinine, POCT Collection Time: 02/18/23 8:46 AM Result Value Creatinine, POCT, B 0.8 ASSESSMENT / PLAN #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 I reviewed her blood work showing a lymphocytosis that is not dramatically changed from prior. There is no anemia or thrombocytopenia. LDH within normal limits. With this in mind I would recommend she continue in a pha se of expectant management. I will see her back in 6 months with blood work and a physical exam. She is aware if she were to develop concerns in the interim, I would see her sooner. #2 Atrial Fibrillation Paroxysmal (HCC) I did remark to the patient that it is possible that her days of severe fatigue may be related to intermittent atrial fibrillation. The patient indicated that she is able to check her pulse. I did indicate that she may want to visit with her primary care regarding this. She verbalized understanding. Follow-up: Return to clinic in 6 months Education We discussed the diagnosis and treatment plan in detail. The patient expressed understanding of thecontent. No apparent learning barriers were identified; learning preferences include listening. I personally spent over half of a total 30 minutes face to face with the patient in counseling and discussion and/or coordination of care as described above. Signed by: Theron Monsalve M.D., Ph.D. 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) Expected: 08/20/2023 (Approximate), Expires: 05/20/2024 Calcium, Total Lab Routine 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) Expected: 08/20/2023 (Approximate), Expires: 05/20/2024 CBC with Differential, Blood Lab Routine 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) Expected: 08/20/2023 (Approximate), Expires: 05/20/2024 Creatinine with Estimated GFR Lab Routine 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) Expected: 08/20/2023 (Approximate), Expires: 05/20/2024 LD (Lactate Dehydrogenase) Lab Routine 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) Expected: 08/20/2023 (Approximate), Expires: 05/20/2024 Potassium Lab Routine 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) Expected: 08/20/2023 (Approximate), Expires: 05/20/2024 Scheduled Referrals Name Type Priority Associated Diagnoses Order Schedule Hematology office visit (clinic) [facility]; CLL; General Outpatient Referral Routine Expected: 08/20/2023 (Approximate), Expires: 05/20/2024 documented as of this encounter Visit Diagnoses Diagnosis 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 [address] [facility] [address] [place] [phone] PCP - General 04/30/17 04/26/23 documented as of this encounter
--- OUTSIDE RECORDS SUMMARY | 2023-11-25 17:52 | XMS_ITS | Clinical Summary ---
Author Name Unknown Organization [facility] Address [place], [place] [address] Care Team Providers Care Human Resources Operations Coordinator Name Role Phone Zoila Carnes MD Primary Care Provider + Allergies Active Allergy Reactions Criticality Noted Date Comments Meloxicam GI Upset 10/12/2017 Penicillins Rash 02/15/2010 Medications Medication Sig Dispensed Refills Start Date End Date Status aspirin 325 mg tablet Take 1 Tablet (325 mg) by mouth once daily with a meal. 0 12/10/2022 Active hydroCHLOROthiazide (HCTZ) 25 mg tablet Take 50 mg by mouth once daily. 0 08/13/2022 Active rosuvastatin (CRESTOR) 10 mg tablet Take 40 mg by mouth once daily. 0 Active acetaminophen SR (TYLENOL ARTHRITIS) 650 mg Extended-Release tablet Take 1,300 mg by mouth every 8 hours. 0 Active losartan (COZAAR) 25 mg tablet Take 25 mg by mouth once daily. 0 11/14/2022 Active metoprolol succinate (TOPROL XL) 50 mg sustained-release tablet Take 50 mg by mouth once daily. 0 08/24/2022 Active dilTIAZem CD (CARDIZEM CD) 120 mg extended release 24 hr capsule Take 120 mg by mouth once daily. 0 08/13/2022 Active Social History Tobacco Use Types Packs/Day Years Used Date Smoking Tobacco: Never Smokeless Tobacco: Never Tobacco Cessation:Counseling Given: Yes Social Connections Answer Date Recorded Frequency of Communication with Friends and Fami ly Not on file 11/16/2021 Financial Resource Strain Answer Date R ecorded Difficulty of Paying Living Expenses Not on file 11/16/2021 Difficulty of Paying Living Expenses Not on file 11/16/2021 Sex and Gender Information Value Date Recorded Sex Assigned at Not on file Gender Identity Not on file Sexual Orientation Not on file Obstetrics History Last Filed Vital Signs Vital Sign Reading Time Taken Comments Blood Pressure - - Pulse 60 12/10/2022 11:09 AM CHIEF PSYCHOLOGY Temperature - - Respiratory Rate - - Oxygen Saturation 96% 12/10/2022 11:09 AM CHIEF PSYCHOLOGY Inhaled Oxygen Concentration - - Weight 97.1 kg (214 lb) 12/10/2022 11:09 AM CHIEF PSYCHOLOGY Height - - Body Mass Index - - Plan of Treatment Health Maintenance Due Date Last Done Comments COVID-19 vaccine series (#1) 01/31/1936 Tdap 1946 Depression screening for age 12+ 1947 BMI (ht and wt on same day) for age 18+ 1953 Tetanus booster 1955 Zoster (shingles) series for age 50+ (1 of 2) 08/02/19 85 DEXA/DXA scan for age 65+ 2000 Medicare Wellness for age 65+ 2000 Pneumococcal series for age 65+ (1 of 1 - PCV) 000 Influenza for age 65+ 07/17/2023 Care Teams Human Resources Operations Coordinator Relationship Specialty Start Date End Date Zoila Carnes MD [address] [place] [address] PCP - General Family Practice 12/13/19
== END 2023-11-19 08:31 | disposition home or self-care (01) ==
LOC: NFLDREF 11-25 17:49
PROVIDERS: PCP Family Medicine; Referring Provider Family Medicine; Visit Provider Family Medicine
DX: I10 Essential (primary) hypertension (principal)
CPT/HCPCS: 80053

== ENCOUNTER 2023-12-08 01:45 | Emergency (ER) | payer MEDICARE, OTHER, SELFPAY ==
[2023-12-08 02:05] VITALS: BP 141/82; PULSE 101; RESP 20; TEMP 36.8; O2SAT 92; BMI 31.3
--- NOTE | 2023-12-08 02:31 | ED.GENADULT ---
HPI - General Adult General Chief complaint: Unspecified Complaint, Adult Stated complaint: Dehydration, Covid + Time Seen by Provider: 12/08/23 01:47 History of Present Illness HPI narrative: 88-year-old female presents with a 4 day history of worsening weakness and sore throat. She has a notable history of prior AFib and tonsillar lymphoma. Reports that she initially started feeling unwell 4 days ago, took a home COVID test 3 days ago which was positive. had been ill a few days prior to herself. She has a very poor appetite and is starting to feel weaker. There is no chest pain, severe shortness of breath, nausea or vomiting. Notes decreased appetite and that her urine started becoming dark yesterday. Admits to not really drinking enough fluids. She has continued to take all of her cardiac medications as prescribed and is not noticing any palpitations, dyspnea on exertion or cough. Has not tried taking any medication to help with the sore throat. Does not believe she is running fevers. Think she could benefit from IV fluids due to the fact that she is feeling weaker and has not been able to take in adequate fluids. No falls, no neurological or mental status changes. No abdominal pain, no cardiac symptoms. She has had at least 4 COVID vaccines. No history of chronic lung disease. Past medical history notable for AFib and prior lymphoma in remission. Home medications are atorvastatin, diltiazem, hydrochlorothiazide, losartan and metoprolol. She is only on aspirin for anticoagulation, having previously been on Eliquis but stopped due to cost. It sounds like there was an insurance formulary change that was confusing for her and she never went back to that class of medication. Nonsmoker. No pertinent travel. ROS notable for the generalized, HEENT symptoms as described above, otherwise denies times 12 systems. Related Data Home Medications Medication Instructions Recorded Confirmed aspirin 325 mg tablet,delayed 325 mg PO DAILY 05/14/22 12/08/23 release cholecalciferol (vitamin D3) 25 25 mcg PO QDAY 05/14/22 12/08/23 mcg (1,000 unit) capsule multivitamin (Multiple Vitamins 1 tab PO QDAY 05/14/22 11/24/23 tablet) Osteo Bi-Flex PO .QD 11/13/22 11/24/23 acetaminophen 650 mg 650 mg PO BID PRN 11/24/23 12/08/23 tablet,extended release Previous Rx's Medication Instructions Recorded atorvastatin 40 mg tablet 40 mg PO .Bedtime #90 tabs 05/22/23 diltiazem HCl 120 mg 120 mg PO DAILY #90 caps 05/22/23 capsule,extended release 24 hr hydrochlorothiazide 25 mg tablet 25 mg PO QDAY #90 tabs 05/22/23 losartan 25 mg tablet 25 mg PO DAILY #90 tabs 05/22/23 metoprolol succinate 50 mg 50 mg PO DAILY #90 tabs 05/22/23 tablet,extended release 24 hr Allergies Allergy/AdvReac Type Severity Reaction Status Date / Time amoxicillin Allergy Mild Rash Verified 11/24/23 08:48 meloxicam AdvReac Mild upset Verified 11/24/23 08:48 stomach PFSH [facility] Medical History Osteoarthritis, multiple sites ?M15.9 - Polyosteoarthritis, unspecified (ICD-10) Obesity with body mass index (BMI) of 30.0 to 39.9 ?E66.9 - Obesity, unspecified (ICD-10) Squamous cell carcinoma of right lower leg (2018) ?C44.722 - Squamous cell carcinoma of skin of right lower limb, including hip (ICD-10) Hypertension ?I10 - Essential (primary) hypertension (ICD-10) Hyperlipidemia ?E78.5 - Hyperlipidemia, unspecified (ICD-10) Chronic lymphocytic leukemia (10/2017) ?C91.10 - Chronic lymphocytic leukemia of B-cell type not having achieved remission (ICD-10) Atrial fibrillation (03/26/19) ?I48.91 - Unspecified atrial fibrillation (ICD-10) Obstructive sleep apnea treated with continuous positive airway pressure (CPAP) (09/2012) ?G47.33 - Obstructive sleep apnea (adult) (pediatric) (ICD-10) ?Z99.89 - Dependence on other enabling machines and devices (ICD-10) Peripheral edema ?R60.9 - Edema, unspecified (ICD-10) History of recurrent urinary tract infection ?Z87.440 - Personal history of urinary (tract) infections (ICD-10) History of bone density study (2022) ?Z92.89 - Personal history of other medical treatment (ICD-10) Health care directive on file (02/25/21) ?Z78.9 - Other specified health status (ICD-10) Surgical History History of tonsillectomy (10/2017) ?Z90.89 - Acquired absence of other organs (ICD-10) History of laparoscopic cholecystectomy (10/27/06) ?Z90.49 - Acquired absence of other specified parts of digestive tract (ICD-10) History of cataract extraction (07/2014) ?Z98.49 - Cataract extraction status, unspecified eye (ICD-10) History of blepharoplasty (02/2015) ?Z98.890 - Other specified postprocedural states (ICD-10) History of bilateral ligation of fallopian tubes (1979) ?Z98.51 - Tubal ligation status (ICD-10) History of squamous cell carcinoma excision (07/2019) ?Z98.890 - Other specified postprocedural states (ICD-10) ?Z85.9 - Personal history of malignant neoplasm, unspecified (ICD-10) History of dilation and curettage (1979) ?Z98.890 - Other specified postprocedural states (ICD-10) History of colonoscopy ?Z98.890 - Other specified postprocedural states (ICD-10) Family History Father Prostate cancer Stroke, Onset Age: 70 Brother Prostate cancer Mother Stroke, Onset Age: 70 Social History Narrative: , 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, 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, 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-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 consumes alcohol exercises 2-3 times per week-30 min elliptical [address] What is your current living situation?: I presently have a place to live Problems where you live: pests, such as bugs, ants, or mice In the past 12 months, utilities in danger of being shut off: no In past 12 months, lack of transportation kept you from medical appts, meetings, work, or getting things needed for daily living: no In the past 12 mos, have been you worried that your food would run out before you had money to buy more?: never true In the past 12 mos, the food you bought just didn't last and you didn't have money to buy more?: never true Smoking Status: Never smoker Do you use any of these nicotine containing products: None Second hand tobacco smoke exposure: No How often do you have a drink containing alcohol: monthly or less How many standard drinks containing alcohol do you have on a typical day: 1 or 2 AUDIT-C Alcohol total score: 1 Non-prescribed substance use: denies use How often does anyone, including family, friends and others, physically hurt you: never How often does anyone, including family, friends and others, insult or talk down to you: never How often does anyone, including family, friends and others, threaten you with harm: never How often does anyone, including family, friends and others, scream or curse at you: never Little interest or pleasure in doing things: not at all Feeling down, depressed, or hopeless: not at all Exam Const: Vital Signs, click to edit/add: Vital Signs - 24 hr 12/08/23 02:05 12/08/23 02:35 Temperature 98.2 F Pulse Rate [Pulse Oximeter] 101 H Respiratory Rate 20 Blood Pressure [Le ft Upper Arm] 141/82 H Pulse Oximetry 92 93 Oxygen Delivery Me thod Room Air Documenting provider has reviewed patient's vital signs: yes Common normals: no apparent distress and alert Other: Friendly and cooperative, good historian. HENMT: Common normals: normocephalic Head and scalp: normocephalic Face and sinus: normal facial exam Other: Membranes seem moist. No redness or enlargement of the peritonsillar areas. Normal tongue. Good dentition. Eye: Common normals: conjunctivae normal General eye: normal appearance of both eyes Conjunctiva: conjunctiva(e) normal Neck & C-Spine: Common normals: full ROM, no lymphadenopathy and no meningeal signs Resp: Common normals: normal respiratory effort, no use of accessory muscles and clear to auscultation bilaterally Effort & inspection: able to speak in complete sentences Auscultation: clear to auscultation bilaterally Cardio: Common normals: regular rate, regular rhythm, S1 normal heart sound, S2 normal heart sound and no murmurs Rate: regular rate Rhythm: regular rhythm Heart sounds: S1 normal and S2 normal Other: Rhythm sounds regular despite reported history of AFib. GI: Common normals: Normal to inspection, nondistended, normoactive bowel sounds present, soft to palpation, non-tender, no hepatosplenomegaly and no masses Palpation: soft and no hepatosplenomegaly Extremity: Common normals: normal to inspection and normal capillary refill Other: Trace bilateral edema. Neuro: Sensorium/orientation: alert Meningeal signs: no meningeal signs Speech: speech normal Motor exam: no tremor noted and no movement abnormalities noted Psych: Attitude: engaged Activity/motor behavior: appropriate eye contact Thought content: normal thought content Insight: insight good Judgement: judgment good Skin: Common normals: no rashes or lesions noted General skin exam: no rashes or lesions noted Course Course ED Course: COVID positive at home with no vomiting, signs of sepsis, fever or respiratory distress. Poor oral intake and risk for dehydration. I recommended some basic labs and EKG to ensure that there is no dangerous etiology for her fatigue. Recommended 1 L of IV fluid over 2 hours, basic cardiac, electrolyte, kidney function workup. May be a candidate for Paxlovid, will discuss. Await findings and clinical response. Reevaluation(s) Time of Reevaluation #1: 03:31 Reevaluation #1: Discussed findings with patient. EKG looks great, labs are reassuring. She is feeling better after fluids. Labs did not demonstrate any severe dehydration. Counseled patient that I would like for her to hold her losartan for the next 2 days to reduce her chance of further dehydration and kidney injury. Continue all other medications as prescribed. We discussed Paxlovid, she would prefer not to take the medication at this time. With her age, creatinine clearance and use of statins, plus the fact that she is on day 5 of illness, this is certainly a reasonable choice. Risks and benefits were discussed. Alarm symptoms reviewed that would warrant ED presentation. Instructed to push fluids. Counseled that the weakness will likely last another 4-5 days. With any severe worsening symptoms, she should come back to the emergency department. Verbalizes understanding and agreement. Vital Signs Vital signs: Initial Vital Signs Temperature 98.2 F 12/08/23 02:05 Temperature Source Temporal Artery Scan 12/08/23 02:05 Pulse Rate 101 H 12/08/23 02:05 Respiratory Rate 20 12/08/23 02:05 Blood Pressure 141/82 H 12/08/23 02:05 Blood Pressure Mean 101 12/08/23 02:05 Blood Pressure Position Sitting 12/08/23 02:05 Pulse Oximetry 92 12/08/23 02:05 Oxygen Delivery Method Room Air 12/08/23 02:05 Vital Signs Temperature 98.2 F 12/08/23 02:05 Pulse Rate 101 H 12/08/23 02:05 Respiratory Rate 20 12/08/23 02:05 Blood Pressure 141/82 H 12/08/23 02:05 Pulse Oximetry 92 12/08/23 02:05 Oxygen Delivery Method Room Air 12/08/23 02:05 Temperature 98.2 F 12/08/23 02:05 Pulse Rate 101 H 12/08/23 02:05 Respiratory Rate 20 12/08/23 02:05 Blood Pressure 141/82 H 12/08/23 02:05 Pulse Oximetry 93 12/08/23 02:35 Oxygen Delivery Method Room Air 12/08/23 02:05 Medications Administered Medications: Generic Name Dose Route Start Last Admin Trade Name Freq PRN Reason Stop Dose Admin Sodium Chloride 1,000 mls @ 500 mls/hr 12/08/23 02:29 12/08/23 02:39 0.9 % Sodium Chloride 1000 Ml IV 12/08/23 04:28 500 mls/hr .Q2H PAUL Administration Medical Decision Making Lab Data Lab results reviewed: Yes I reviewed the patient's lab results Lab results narrative: Mild leukocytosis, otherwise reassuring. Labs: Lab Results 12/08/23 Range/Units 02:35 WBC 14.20 H (4.50-11.00) K/uL RBC 5.00 (4.00-5.20) m/uL Hgb 14.5 (12.0-16.0) gm/dL Hct 43.8 (33.0-51.0) % MCV 88 (80-100) fL MCH 29 (26-34) pg MCHC 33 (32-36) gm/dL RDW Coeff of Braden 13.3 (11.5-15.5) % Plt Count 151 (140-440) K/uL Neut % (Auto) 64.0 (42.0-72.0) % Lymph % (Auto) 25.7 (20-44) % [place] % (Auto) 8.8 (0.0-11.0) % Eos % (Auto) 0.4 (0.0-7.0) % Baso % (Auto) 0.3 (0.0-3.0) % Neut # (Auto) 9.10 H (1.7-7.0) K/uL Lymph # (Auto) 3.60 H (0.90-2.90) K/uL [place] # (Auto) 1.20 H (0.00-0.90) K/UL Eos # (Auto) 0.10 (0.00-0.50) K/uL Baso # (Auto) 0.00 (0.00-0.30) K/uL Abs Immat Gran (auto) 0.10 (0.00-0.30) K/uL Imm/Tot Granulo (auto) 0.8 % Sodium 137 (135-149) mmol/L Potassium 3.6 (3.6-5.1) mmol/L Chloride 105 (96-114) mmol/L Carbon Dioxide 24 (20-32) mmol/L Anion Gap 8 (7-15) mEq/L BUN 26 (7-30) mg/dL Creatinine 0.7 (0.5-1.5) mg/dL Estimated Creat Clear 37.82 Estimated GFR 83 ml/min Glucose 140 H (60-115) mg/dL Lactate 0.7 (0.5-1.9) mmol/L Calcium 10.1 (8.4-10.6) mg/dL Total Bilirubin 2.2 H (0.1-1.5) mg/dL AST 25 (12-35) U/L ALT 18 (4-35) U/L Alkaline Phosphatase 90 (40-150) U/L Troponin I < 0.01 L (0.01-0.04) ng/mL C-Reactive Protein 3.4 H (0.5-1.0) mg/dL NT-Pro-B Natriuret Pep 218 pg/mL Total Protein 7.0 (6.0-8.3) g/dL Albumin 4.1 (3.3-5.0) g/dL Group A Strep DNA NOT DETECTED (Not Detectd) POC Troponin I 0.00 L (0.01-0.04) ng/ml ECG Data Attestation: I personally reviewed and interpreted this ECG as follows: Prior ECG tracings: available for review Interpretation: Normal sinus rhythm, rate 90. Very good EKG for her age. There is no significant ST or T-wave abnormalities, normal intervals. Normal axis. No signs of ischemia. Discharge Plan Discharge Clinical Impression: COVID Patient Disposition: Home w/ Parent or Adult Condition: Improved Instructions: COVID-19 (Coronavirus Disease 2019) (ED) Additional Instructions: I am glad your feeling a little better after IV fluids. Thankfully, since you are vaccinated, you are not at high risk of lung complications from COVID. We discussed paxlovid, the medication that can shorten the intensity and duration of your COVID and you have elected to pass on this. This is certainly reasonable since you are likely on day 5 of your illness. Your labs look very good. There are no signs of kidney problems, major dehydration, electrolyte abnormalities or heart complications. As we discussed, I would like for you to not take your losartan for the next 2 days. You will continue taking all of your other medications exactly as prescribed. The losartan can increase her risk of dehydration while you are sick. Please plan to restart the medication on . Continue to drink plenty of fluids. It is common to feel very weak for about 10 days from the COVID. If the weakness is severe in you cannot care for herself, come back to the emergency department. I would also be concerned if your very short of breath, have chest pain or other signs of complications. Please continue to quarantine for at least 2 more days. Activity Level: Activity as Tolerated Discharge Diet: Regular Prescriptions: No Action cholecalciferol (vitamin D3) 25 mcg (1,000 unit) capsule 25 mcg PO QDAY aspirin 325 mg tablet,delayed release (DR/EC) 325 mg PO DAILY multivitamin [Multiple Vitamins] Tablet 1 tab PO QDAY acetaminophen 650 mg tablet extended release 650 mg PO BID PRN Osteo Bi-Flex PO .QD losartan 25 mg tablet 25 mg PO DAILY Qty: 90 4RF hydrochlorothiazide 25 mg tablet 25 mg PO QDAY Qty: 90 4RF atorvastatin 40 mg tablet 40 mg PO .Bedtime Qty: 90 4RF metoprolol succinate 50 mg tablet extended release 24 hr 50 mg PO DAILY Qty: 90 4RF diltiazem HCl 120 mg capsule,extended release 24hr 120 mg PO DAILY Qty: 90 4RF Follow Up/Referrals: Zoila Carnes MD [Primary Care Provider] - Stand Alone Forms: Interneer Info Instructions
[2023-12-08 02:35] VITALS: O2SAT 93
[2023-12-08] MEDS: 0.9 % SODIUM CHLORIDE 1000 ml 1,000 ML 500 ML IV (02:39)
[2023-12-08 02:41] LABS: Lactate* 0.7 mmol/L (0.5-1.9)
--- OUTSIDE RECORDS SUMMARY | 2023-12-08 02:42 | XMS_ITS | Encounter Summary ---
Author Name Unknown Organization [facility] Address [address] [place] [address] Care Team Providers Care Direct Care Professional Name Role Phone Elsewhere, Pcp Primary Care Provider Unavailabl e Reason for Visit * Reason Onset Date Comments External Lab Entry 08/06/2023 Encounter Details Date Type Department Care Team (Latest Contact Info) Description 08/07/2023 Clinical Communication Division of Hematology in [place], [place] [address] [place] [address] Theron Monsalve M.D., Ph.D. [address] [place] [address] External Lab Entry Social History Tobacco Use [...] week 08/30/2022 How often do you attend [facility] or latter day services? More than 4 times per year 08/30/2022 Do you belong to any clubs o r organizations such as druze groups, unions, fraternal or athletic groups, or [...] place to sleep or slept in a usp (including now)? 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
--- OUTSIDE RECORDS SUMMARY | 2023-12-08 02:42 | XMS_ITS | Encounter Summary ---
Author Name Unknown Organization [facility] Address [address] [place] [address] Care Team Providers Care Furnace Mechanic Helper Name Role Phone Elsewhere, Pcp Primary Care Provider Unavailabl e Encounter Details Date Type Department Care Team (Late st Contact Info) Description 05/25/2023 Clinical Communication Division of Hematology in [place], [place] [address] [place] [address] Theron Monsalve M.D., Ph.D. [address] [place] [address] Social History Tobacco Use Types Packs/Day Years [...] often do you attend chur ch or mormonism services? More than 4 times per year [...] Answer Date Recorded PHQ-2 Score 0 04/21/2019 [facility] Occupat ional Health - Occupational Stress [...] place to sleep or slept in a senior living (including now)? 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
--- OUTSIDE RECORDS SUMMARY | 2023-12-08 02:42 | XMS_ITS ---
Author Name Unknown Organization [facility] Address [address] [place] [address] Care Team Providers Care Assurance Senior Manager Name Role Phone Elsewhere, Pcp Primary [...] treatments are documented for this patient in [facility]. Treatments may have been administered in another system. Lifetime Dose Tracking * Chemical Lifetime Dose Automatic Entry Manual Entr y Radiation 333.9 mGy 333.9 mGy 0 mGy Fluoro Time 2.85 minutes 2.85 minutes 0 minutes
--- OUTSIDE RECORDS SUMMARY | 2023-12-08 02:42 | XMS_ITS ---
Author Name Unknown Organization [facility] Address [address] [place] [address] Care Team Providers Care Turbo Operator Name Role Phone Unavailable Unavailable Unavailable Surgery Details Not on file Complications Check Surgery Details section. Procedure Estimated Blood Loss Check Surgery Details section. Procedure Findings Check Surgery Details section. Procedure Specimens Taken Check Surgery Details section.
--- OUTSIDE RECORDS SUMMARY | 2023-12-08 02:42 | XMS_ITS | Referral Summary ---
Author Name Unknown Organization [facility] Address [address] [place] [address] Care Team Providers Care Acds Block 1 Operator Name Role Phone Elsewhere, Pcp Primary Care Provider Unavailabl e Source Comments Patient records contain information from all sites at [facility]. For routine questions regarding patient records, call [phone] during business hours, M-F 8:00 AM - 5:00 PM Central Time. Record requests for emergency care only can be directed to [phone] at any time.[facility] Allergies Active Allergy Reactions Criticality Noted Date [...] week 08/30/2022 How often do you attend [facility] or buddhism services? More than 4 times per year [...] Answer Date Recorded PHQ-2 Score 0 04/21/2019 [facility] of Occupat ional [facility] - Occupational Stress Questionnaire Answer Date Recorded [...] Sex Assigned at Female 01/11/2022 3:49 PM CLOTH WINDER Gender Identity Female 04/24/2018 2:50 PM CDT Sexual Orientation Straight 04/24/2018 2: 50 PM CDT Last Filed Vital Signs Vital Sign Reading Time Taken Comments Blood Pressure 147/67 08/13/2023 9:06 AM CDT Pulse 75 08/13/2023 9:06 AM CDT Temperature 35.7 ??C (96.3 ??F) 08/13/2023 9:06 AM CD T Respiratory Rate 16 10/28/2017 12:1 7 PM CLOTH WINDER Oxygen Saturation 95% 04/21/2019 11: 08 AM CDT Inhaled Oxygen Concentration - - Weight 95.6 kg (210 lb 12.2 oz) 08/13/2023 9:06 AM CDT Height 171.4 cm (5' 7.48) 08/13/2023 9:06 AM CD T Body Mass Index 32.54 08/13/2023 9:06 AM CDT Plan of Treatment Not on file Medical Devices Implanted Type Area Hardening Machine Operator Helper Device Identifier Shelf Expiration Date Model / Serial / Lot Ocular Lens Ocular Lens Eye Advance Directives For more information, please contact: [phone] Documents on File Type Date Recorded Patient Abe Teacher Expl anation Advance Directives 06/03/2021 10:40 AM [facility] Care Directive Advance Directives 12/11/2017 12:00 AM Leg acy document. See document viewer. Advance Directives 07/01/2016 12:00 AM Leg acy document. See document viewer. Healthcare Agents on File Name Relationship [facility] Agent [facility] Alexandr Del Angel Spouse Health Care Agent Luis Del Angel First Alternate Health Care Agent Nataliya Becerra Second Alternate Health Care Agent Care Teams Acds Block 1 Operator Relationship Specialty Start Date End Date Elsewhere, Pcp PCP - General Internal Medicine 04/27/23
--- OUTSIDE RECORDS SUMMARY | 2023-12-08 02:42 | XMS_ITS | Encounter Summary ---
Author Name Unknown Organization [facility] Address [address] [place] [address] Care Team Providers Care Panelboard Assembler Name Role Phone Elsewhere, Pcp Primary Care Provider Unavailabl e Reason for Referral * Outpatient (Routine) - Authorized Specialty Diagnoses / Procedures Referred By Contac t Referred To Contact Hematology Oncology Theron Monsalve M.D., Ph.D. [address] [place] [phone] [facility] Referral ID Status Reason Start Date Expiration Date V isits Requested Visits Authorized [id number] Authorized 08/13/2023 08/12/2026 1 1 Scheduling Instructions Patient would like blood draw in [place] if possible Reason for Visit * Outpatient (Routine) - Closed Specialty Diagnoses / Procedures Referred By Contac t Referred To Contact Hematology Oncology Theron Monsalve M.D., Ph.D. [address] [place] [phone] [facility] Referral ID Status Reason Start Date Expiration Date Visits Re quested Visits Authorized [id number] Closed 02/18/2023 02/17/2026 1 1 Encounter Details Date Type Department Care Team ([facility] st Contact Info) Description 08/13/2023 9:15 AM CDT Office Visit Division of Hematology in [place], [place] 200 [place] [address] Theron Monsalve M.D., Ph.D. 200 [place] [address] 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 [...] you attend [facility] or temple services? More than 4 times [...] Answer Date Recorded PHQ-2 Score 0 04/21/2019 [facility] of Occupat ional Health - Occupational Stress [...] place to sleep or slept in a snf (including now)? 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 Her hemoglobin is normal, platelets are normal, [...] Diagnoses Order Schedule Hematology office visit (clinic) [facility]; CLL; General Outpatient Referral Routine Expected: 02/11/2024 (Approximate), Expires: 11/12/2024 documented as of this encounter Visit Diagnoses Diagnosis 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 (HCC)- Primary documented in this encounter Additional Health Concerns Assessment Noted Time PHQ-9 Depression Total Score: 4 06/13/20 15 8:44 AM CDT documented as of this encounter Care Teams Panelboard Assembler Relationship Specialty Start Date End Date Elsewhere, Pcp PCP - General Internal Medicine 04/27/23 documented as of this encounter
--- OUTSIDE RECORDS SUMMARY | 2023-12-08 02:42 | XMS_ITS | Clinical Summary ---
Author Name Unknown Organization [facility] Address [address] [place] [address] Care Team Providers Care Dairy Technologist Name Role Phone Elsewhere, Pcp Primary Care Provider Unavailabl e Source Comments Patient records contain information from all sites at [facility]. For routine questions regarding patient records, call [phone] during business hours, M-F 8:00 AM - 5:00 PM Central Time. Record requests for emergency care only can be directed to [phone] at any time.[facility] Allergies Active Allergy Reactions Criticality Noted Date [...] How often do you attend chur or presybeterian services? 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 Gender Identity Female 04/24/2018 2:50 PM CDT Sexual Orientation Straight 04/24/2018 2: 50 PM CDT Last Filed Vital Signs Vital Sign Reading Time Taken Comments Blood Pressure 147/67 08/13/2023 9:06 AM CDT Pulse 75 08/13/2023 9:06 AM CDT Temperature 35.7 ??C (96.3 ??F) 08/13/2023 9:06 AM CD T Respiratory Rate 16 10/28/2017 12:1 7 PM CANARY BREEDER Oxygen Saturation 95% 04/21/2019 11: 08 AM CDT Inhaled Oxygen Concentration - - Weight 95.6 kg (210 lb 12.2 oz) 08/13/2023 9:06 AM CDT Height 171.4 cm (5' 7.48) 08/13/2023 9:06 AM CD T Body Mass Index 32.54 08/13/2023 9:06 AM CDT Plan of Treatment Health Maintenance Due Date Last Done Comments Depression Screening (Annual PHQ-2) 11/16/2023 Fall Risk Screen (Annual) 11/16/2023 Creatinine Level (Kidney Function Test) 08/06/2024 08/06/2023, 02/18/2023, 02/18/2023, Additional history exists Potassium Level 08/06/2024 08/06/2023, 04/0 03/2023, 09/04/2022, Additional history exists Sodium Level 08/06/2024 08/06/2023, 08, 04/19/2014, Additional history exists DTaP,Tdap,and Td Vaccines (3 - Td or Tdap) 05/14/2032 05/14/2022, 02/18/2010, 02/18/2010, Additional history exists Pneumococcal vaccine (65+ years) Completed 06/13/2015, 03/18/2015, 09/30/2004, Additional history exists Zoster Vaccines Completed 02/18/2021, 11/17/2020 COVID-19 Vaccine Completed 08/26/2023, 03/2022, 03/31/2022, Additional history exists Influenza Vaccine Completed 08/26/2023, , 07/04/2021, Additional history exists HPV Vaccines Aged Out No longer eligi ble based on patient's age to complete this topic Medical Devices Implanted Type Area Play Writer Device Identifier Shelf Expiration Date Model / Serial / Lot Ocular Lens Ocular Lens Eye Advance Directives For more information, please contact: [phone] Documents on File Type Date 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 See document viewer. Advance Directives 07/01/2016 12:00 AM Leg acy document. See document viewer. Healthcare Agents on File Name Relationship Healthcare Agent Relationshi p Communication Alexandr Del Angel Spouse Health Care Agent Luis Del Angel First Alternate Health Care Agent Nataliyamorena Douglasen Second Alternate Health Care Agent Care Teams Dairy Technologist Relationship Specialty Start Date End Date Elsewhere, Pcp PCP - General Internal Medicine 04/27/23
--- OUTSIDE RECORDS SUMMARY | 2023-12-08 02:43 | XMS_ITS | Clinical Summary ---
Author Name Unknown Organization [facility] Address [place], [place] [address] Care Team Providers Care Geriatric Physical Therapist Name Role Phone Zoila Carnes MD Primary [...] - - Pulse 60 12/10/2022 11:09 AM CARDIAC TECHNOLOGIST Temperature - - Respiratory Rate - - Oxygen Saturation 96% 12/10/2022 11:09 AM CARDIAC TECHNOLOGIST Inhaled Oxygen Concentration - - Weight 97.1 kg (214 lb) 12/10/2022 11:09 AM CARDIAC TECHNOLOGIST Height - - Body Mass Index - [...] Influenza for age 65+ 07/17/2023 Care Teams Geriatric Physical Therapist Relationship Specialty Start Date End Date Zoila Carnes MD [address] [place] [address] PCP - General Family Practice 12/13/19
--- OUTSIDE RECORDS SUMMARY | 2023-12-08 02:43 | XMS_ITS | Encounter Summary ---
Author Name Unknown Organization [facility] Address [address] [place] [address] Care Team Providers Care Mediator Name Role Phone Franchesca BeauchampNKerline Primary Care Provider +1- [phone] Reason for Referral * Outpatient (Routine) - Closed Specialty Diagnoses / Procedures Referred By Ricky t Referred To Contact Hematology Oncology Theron Monsalve M.D., Ph.D. [address] [place] [phone] [facility] Referral ID Status Reason Start Date Expiration Date Visits Re quested Visits Authorized [id number] Closed 02/18/2023 02/17/2026 1 1 Reason for Visit * Outpatient (Routine) - Closed Specialty Diagnoses / Procedures Referred By Conttheo t Referred To Contact Hematology Oncology Eva Hanley APRN, C.N.P., D.N.P. [address] [place] [phone] [facility] Referral ID Status Reason Start Date Expiration Date Visits Re quested Visits Authorized [id number] Closed 09/04/2022 09/03/2025 1 1 Encounter Details Date Type Department Care Team (Late st Contact Info) Description 02/18/2023 1:30 PM CDT Office Visit Division of Hematology in [place], [place] 200 [place] [address] Theron Monsalve M.D., Ph.D. 200 [place] [address] Small Cell B Cell Lymphoma Lymph Nodes [...] often do you attend chur ch or sikhism services? More than 4 times per year 08/30/2022 Do you belong to any clubs o r organizations such as alevism groups, unions, fraternal or athletic groups, or [...] Answer Date Recorded PHQ-2 Score 0 04/21/2019 [facility] of Occupat ional Health - Occupational Stress [...] place to sleep or slept in a assisted (including now)? 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 [address] [facility] [address] [place] [phone] PCP - General 04/30/17 04/26/23 documented as of this encounter
--- OUTSIDE RECORDS SUMMARY | 2023-12-08 02:43 | XMS_ITS | Encounter Summary ---
Author Name Unknown Organization [facility] Address [address] [place] [address] Care Team Providers Care Corrections Unit Supervisor Name Role Phone Elsewhere, Pcp Primary Care Provider Unavailabl e Encounter Details Date Type Department Care Team (Late st Contact Info) Description 07/09/2005 Historical Ophthalmology [facility] Fransico Pederson M.D. 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
--- OUTSIDE RECORDS SUMMARY | 2023-12-08 02:43 | XMS_ITS | Encounter Summary ---
Author Name Unknown Organization [facility] Address [address] [place] [address] Care Team Providers Care Cold Roller Name Role Phone Franchesca BeauchampNKerline Primary Care Provider +1- [phone] Encounter Details Date Type Department Care Team (Latest Contact Info) Description 02/18/2023 7:41 AM CDT - 02/18/2023 8:19 AM CDT Hospital Encounter Department of Laboratory Medicine and Pathology, [facility] in [place], [place] [address] [place] [address] Eva Hanley APRN, C.N.P., D.N.P. [address] [place] [phone] Small Cell B Cell Lymphoma Lymph Nodes [...] week 08/30/2022 How often do you attend [facility] or mormon services? 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 Interpretation SeeComment 02/18/2023 9:46 AM CDT [facility] Comment: The blood smear findings are consistent with the previous diagnosis of chronic lymphoproliferative disorder. Reviewed by: Ethan 02/18/2023 9:46 AM CDT [facility] Blood 02/18/2023 7:49 AM CDT 02/18/2023 8:13 AM CDT Na Gonzales APRN.N.P., D.N.P. LAB BLOOD ADD-ON Performing Organization Address City/[facility]/[place] [address] * Potassium (02/18/2023 7:49 AM CDT) Potassium, S 4.2 3.6 - 5.2 mmol/L 02/18/2023 8:55 AM CDT DT Blood (Blood, Venous) 02/18/2023 7:49 AM CDT 02/18/2023 8:28 AM CDT Na Gonzales APRN.N.P., D.N.P. LAB BLOOD ADD-ON Performing Organization Address [facility]/ZIP Co de Phone Number [facility] [address] [place] [address] * LD (Lactate Dehydrogenase) (02/18/2023 7:49 AM CDT) Lactate Dehydrogenase (LD), S 180 122 - 222 U/L 02/18/2023 8:55 AM CDT DT Blood (Blood, Venous) 02/18/2023 7:49 AM CDT 02/18/2023 8:28 AM CDT Na Gonzales APRN.N.P., D.N.P. LAB BLOOD NON ADD-ON Performing Organization Address [facility] [place] [address] * Creatinine with Estimated GFR (02/18/2023 7:49 AM CDT) Creatinine 0.88 0.59 - 1.04 mg/dL 02/18/2023 8:55 AM CDT DTL Estimated GFR (eGFR) 64 >=60 mL/min/BSA 02/18/2023 8:55 AM CDT DTL Comment: Estimated GFR calculated using the 2020 CKD_EPI creatinine equation. Blood (Blood, Venous) 02/18/2023 7:49 AM CDT 02/18/2023 8:28 AM CDT Na Gonzales APRN.N.P., D.N.P. LAB BLOOD ADD-ON Performing Organization Address [facility] [place] [address] * (ABNORMAL) CBC with Differential, Blood (02/18/2023 [...] D.N.P. LAB BLOOD ADD-ON Performing Organization Address City/[facility]/[place] [address] * (ABNORMAL) Calcium, Total (02/18/2023 7:49 AM CDT) Calcium, Total, S 10.8(H) 8.8 - 10.2 mg/dL 02/18/2023 9:04 AM CDT DTL Blood (Blood, Venous) 02/18/2023 7:49 AM CDT 02/18/2023 8:28 AM CDT Eva Hanley APRN, C.N.P., D.N.P. LAB BLOOD ADD-ON Performing Organization Address City/[facility]/ZIP Co de Phone Number [facility] [address] [place] [address] * Bilirubin, Total (02/18/2023 7:49 AM CDT) Bilirubin, Total, S 1.2 <=1.2 mg/dL 02/18/2023 8:55 AM CDT DTL Blood (Blood, Venous) 02/18/2023 7:49 AM CDT 02/18/2023 8:28 AM CDT Na Gonzales APRN.N.P., D.N.P. LAB BLOOD ADD-ON Performing Organization Address [facility]/ZIP Co de Phone Number [facility] [address] [place] [address], [facility] [address] [place] [address] * AST (Aspartate Aminotransferase) (02/18/2023 7:49 AM CDT) Aspartate Aminotransferase (AST), S 19 8 - 43 U/L 02/18/2023 8:55 AM CDT DTL Blood (Blood, Venous) 02/18/2023 7:49 AM CDT 02/18/2023 8:28 AM CDT Na Gonzaels APRN.N.P., D.N.P. LAB BLOOD ADD-ON Performing Organization Address [facility]/ZIP Co de Phone Number [facility] [address] [place] [address], [facility] [address] [place] [address] * Alkaline Phosphatase (02/18/2023 7:49 AM CDT) Alkaline Phosphatase, S 100 35 - 104 U/L 02/18/2023 8:55 AM CDT DTL Blood (Blood, Venous) 02/18/2023 7:49 AM CDT 02/18/2023 8:28 AM CDT Na Gonzales APRN.N.P., D.N.P. 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 [address] [facility] [address] [place] [phone] PCP - General 04/30/17 04/26/23 documented as of this encounter
--- OUTSIDE RECORDS SUMMARY | 2023-12-08 02:43 | XMS_ITS | Encounter Summary ---
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 [address] [place] [address] [facility] Referral ID Status Reason Start Date Expiration Date V isits Requested Visits Authorized [id number] Authorized 05/22/2023 05/21/2024 1 1 Encounter Details Date Type Department Care Team (Late st Contact Info) Description 05/22/2023 [facility] [address] [place] [address] Zoila Carnes M.D. [address] [place] [address] Chronic Lymphocytic Leukemia Of B [...] 08/30/2022 How often do you attend [facility] or denominational services? 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
--- OUTSIDE RECORDS SUMMARY | 2023-12-08 02:43 | XMS_ITS | Encounter Summary ---
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 [address] [place] [phone] [facility] Referral ID Status Reason Start Date Expiration Date Visits Re quested Visits Authorized [id number] Closed 09/04/2022 09/04/2023 1 1 Encounter Details Date Type Department Care Team (Latest Contact Info) Description 02/18/2023 8:20 AM CDT - 02/18/2023 11:59 PM CDT Hospital Encounter Department of Radiology, [facility], in [place], [place] [address] [place] [phone] Eva Hanley APRN, C.N.P., D.N.P. [address] [place] [phone] Small Cell B Cell Lymphoma Lymph Nodes [...] How often do you attend chur or catholic services? 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 Eva Hanley APRN, C.N.P., D.N.P. IM CT PROCEDURES * CT Chest with IV [...] pelvis. That study is reported separately. COMPARISON: [facility] examinations from 12/07/2020, 11/26/2018, and 12/10/2017. FINDINGS: [...] pelvis. That study is reported separately. COMPARISON: [facility] examinations from 12/07/2020, 11/26/2018, and12/10/2017. FINDINGS: A [...] * Creatinine, POCT (02/18/2023 8:46 AM CDT) [facility] Creatinine, POCT, B 0.8 0.6 - 1.0 mg/dL 02/18/2023 8:48 AM CDT [facility] Comment: ----ADDITIONAL INFORMATION---- Performed at the Point of Care Blood 02/18/2023 8:46 AM CDT 02/18/2023 8:48 AM CDT Unknown Provider LAB POCT ORDERABLES - DEVICE POC [facility] [address] [place] [address], [facility] P[facility] [address] [place] [address] * Creatinine, POCT (02/18/2023 8:46 AM CDT) [facility] Estimated GFR (eGFR), POCT 71 >=60 mL/min/BSA 02/18/2023 8:48 AM CDT [facility] Comment: Estimated GFR calculated using the 2020 CKD_EPI creatinine equation. Blood 02/18/2023 8:46 AM CDT 02/18/2023 8:48 AM CDT Unknown Provider LAB POCT ORDERABLES - DEVICE POC [facility] [address] [place] [address], [facility] POC [address] [place] [address] documented in this encounter Visit Diagnoses Diagnosis [...] documented as of this encounter Care Teams Tester Food Products Relationship Specialty Start Date End Date Franchesca Beauchamp, Anna.NHoneyP. [address] [facility] [address] [place] [address] PCP - General 04/30/17 04/26/23 documented as of this encounter
[2023-12-08 02:49] LABS: Basophils Percent Auto 0.3 % (0.0-3.0); Eosinophils Percent Auto 0.4 % (0.0-7.0); Hematocrit 43.8 % (33.0-51.0); Hemoglobin* 14.5 gm/dL (12.0-16.0); Immature Granulocytes Pct Auto 0.8 %; Lymphocytes Percent Auto 25.7 % (20-44); Mean Corpuscular HGB Conc 33 gm/dL (32-36); Mean Corpuscular Hemoglobin 29 pg (26-34); Mean Corpuscular Volume 88 fL (80-100); Monocytes Percent Auto 8.8 % (0.0-11.0); Platelet Count* 151 K/uL (140-440); RDW Coefficient of Variation % 13.3 % (11.5-15.5)
[2023-12-08 02:50] LABS: Slide Review Reflex No
[2023-12-08 03:04] LABS: Albumin* 4.1 g/dL (3.3-5.0); Chloride* 105 mmol/L (96-114); Sodium* 137 mmol/L (135-149)
[2023-12-08 03:05] LABS: Potassium* 3.6 mmol/L (3.6-5.1)
[2023-12-08 03:07] LABS: Anion Gap 8 mEq/L (7-15); Aspartate Amino Transferase* 25 U/L (12-35); Bilirubin Total* 2.2 mg/dL (0.1-1.5); Carbon Dioxide* 24 mmol/L (20-32); Creatinine* 0.7 mg/dL (0.5-1.5); Est. Creatinine Clearance* 37.82; Estimated Glomerular Filt Rate 83 ml/min
[2023-12-08 03:08] LABS: Alanine Aminotransferase* 18 U/L (4-35); Alkaline Phosphatase* 90 U/L (40-150); Blood Urea Nitrogen* 26 mg/dL (7-30); Calcium* 10.1 mg/dL (8.4-10.6); Glucose* 140 mg/dL (60-115)
[2023-12-08 03:10] LABS: Strep A DNA Probe* NOT DETECTED (Not Detectd)
[2023-12-08 03:11] LABS: C Reactive Protein* 3.4 mg/dL (0.5-1.0)
[2023-12-08 03:18] LABS: NT Pro B Type NatriureticPept* 218 pg/mL; Troponin I* < 0.01 ng/mL (0.01-0.04)
[2023-12-08 03:38] VITALS: BP 135/79; BP 141/82; PULSE 101; PULSE 95; RESP 20; TEMP 36.8; O2SAT 93
== END 2023-12-08 03:40 | disposition home or self-care (01) ==
PROVIDERS: Emergency Provider Family Medicine; PCP Family Medicine
DX: U07.1 COVID-19 (principal)
CPT/HCPCS: 36415; 80053; 83605; 83880; 84484; 85025; 86140; 87651; 94761; 99283; 99284; J7030

== ENCOUNTER 2024-02-05 10:15 | Outpatient (CLI) | payer MEDICARE, OTHER, SELFPAY ==
[2024-02-05 11:03] LABS: Chloride* 107 mmol/L (96-114); Sodium* 141 mmol/L (135-149)
[2024-02-05 11:06] LABS: Alanine Aminotransferase* 20 U/L (4-35); Alkaline Phosphatase* 85 U/L (40-150); Anion Gap 8 mEq/L (7-15); Aspartate Amino Transferase* 24 U/L (12-35); Blood Urea Nitrogen* 35 mg/dL (7-30); Calcium* 10.6 mg/dL (8.4-10.6); Carbon Dioxide* 26 mmol/L (20-32); Creatinine* 0.8 mg/dL (0.5-1.5); Estimated Glomerular Filt Rate 71 ml/min; Glucose* 115 mg/dL (60-115); Lactate Dehydrogenase* 157 U/L (120-246); Total Protein* 6.9 g/dL (6.0-8.3)
[2024-02-05 11:50] LABS: Basophils Percent Auto 0.3 % (0.0-3.0); Eosinophils Percent Auto 2.1 % (0.0-7.0); Hematocrit 43.8 % (33.0-51.0); Hemoglobin* 14.5 gm/dL (12.0-16.0); Immature Granulocytes Pct Auto 0.2 %; Lymphocytes Percent Auto 50.7 % (20-44); Mean Corpuscular HGB Conc 33 gm/dL (32-36); Mean Corpuscular Hemoglobin 29 pg (26-34); Mean Corpuscular Volume 88 fL (80-100); Neutrophils Percent Auto 39.7 % (42.0-72.0); Platelet Count* 183 K/uL (140-440); RDW Coefficient of Variation % 13.7 % (11.5-15.5); White Blood Count* 12.24 K/uL (4.50-11.00)
[2024-02-05 12:15] LABS: Slide Review Acceptable Review (Acceptable); Slide Review Reflex Yes
== END 2024-02-05 10:16 | disposition home or self-care (01) ==
LOC: LAB 10:18
PROVIDERS: PCP Family Medicine
DX: C83.01 Small cell B-cell lymphoma, lymph nodes of head, face, and neck (principal)
CPT/HCPCS: 36415; 80053; 83615; 85025

== ENCOUNTER 2024-02-10 10:54 | Emergency (ER) | payer MEDICARE, OTHER, SELFPAY ==
[2024-02-10 11:06] VITALS: BP 147/79; PULSE 65; RESP 18; TEMP 35.9; O2SAT 95; BMI 31.5
--- NOTE | 2024-02-10 11:22 | CT_ITS ---
Patient: CANDIS BIRMINGHAM Facility:?[facility] Patient ID:?[id number] Site Patient ID:?[id number]. Site :?[id number] Study:?CT-Head W/O-02/10/2024 11:53:02 AM Ordering Physician:YASMIN Final Report: INDICATION: Dizziness COMPARISON: None TECHNIQUE: CT examination of the head was performed as axial sections without intravenous contrast. Images were obtained from the vertex of the skull through the skull base. Please note that all CT scans at this facility use dose modulation, iterative reconstruction, and/or weight-based dosing when appropriate to reduce radiation dose to as low as reasonably achievable. FINDINGS: The brain shows no sign of mass lesion, mass effect, hemorrhage, or edema. There are involutional changes identified consisting of mild diffuse volume loss and mild white matter disease which is probably small-vessel ischemic. This is proportionate to patient age. The visualized portions of the orbits are normal in appearance. The osseous structures are normal in their appearance with no sign of abnormality in the skull base or calvarium. IMPRESSION: Involutional changes. No acute appearing finding. Please note that all CT scans at this facility use dose modulation, iterative reconstruction, and/or weight-based dosing when appropriate to reduce radiation dose to as low as reasonably achievable. Dictated by Naveen Schroeder MD @ 02/10/2024 11:56:54 AM Signed by:?Naveen Schroeder MD @02/10/2024 11:56:54 AM (Electronic Signature)
[2024-02-10 11:37] LABS: Basophils Absolute Auto 0.04 K/uL (0.00-0.30); Basophils Percent Auto 0.4 % (0.0-3.0); Eosinophils Absolute Auto 0.24 K/uL (0.00-0.50); Eosinophils Percent Auto 2.4 % (0.0-7.0); Hematocrit 45.3 % (33.0-51.0); Immature Granulocytes Abs Auto 0.02 K/uL (0.00-0.30); Immature Granulocytes Pct Auto 0.2 %; Lymphocytes Percent Auto 47.9 % (20-44); Mean Corpuscular HGB Conc 33 gm/dL (32-36); Mean Corpuscular Hemoglobin 29 pg (26-34); Mean Corpuscular Volume 88 fL (80-100); Monocytes Percent Auto 7.4 % (0.0-11.0); Neutrophils Percent Auto 41.7 % (42.0-72.0); Platelet Count* 158 K/uL (140-440); RDW Coefficient of Variation % 13.7 % (11.5-15.5); Red Blood Count 5.18 m/uL (4.00-5.20)
[2024-02-10 11:41] LABS: Slide Review Reflex No
[2024-02-10 11:51] LABS: Chloride* 108 mmol/L (96-114)
[2024-02-10 11:52] LABS: Potassium* 3.7 mmol/L (3.6-5.1); Sodium* 141 mmol/L (135-149)
[2024-02-10 11:54] LABS: Anion Gap 5 mEq/L (7-15); Carbon Dioxide* 28 mmol/L (20-32); Creatinine* 0.7 mg/dL (0.5-1.5); Est. Creatinine Clearance* 37.82; Estimated Glomerular Filt Rate 83 ml/min
[2024-02-10 11:55] LABS: Blood Urea Nitrogen* 29 mg/dL (7-30); Calcium* 10.5 mg/dL (8.4-10.6); Glucose* 115 mg/dL (60-115)
--- NOTE | 2024-02-10 12:12 | ED.DIZZY ---
HPI - Dizziness General Date Seen: 02/10/24 Chief Complaint: Dizziness/Vertigo Stated Complaint: dizzy / nausea Time Seen by Provider: 02/10/24 11:21 Source: patient Mode of arrival: ambulatory Limitations: no limitations History of Present Illness HPI Narrative: Patient is an 88-year-old female presenting to the emergency department for an episode of dizziness. She states at about 09:40 she had this episode of dizziness where she felt like the whole room was spinning the lasted for like 30 seconds. She dropped her often appointment and picked him back up in notice yet the symptoms again that again lasted 30 seconds. She then went home and decided to come to the emergency department to be evaluated. He has not had any further episodes. She does have AFib and is on a blood thinner. He denies ever having symptoms like this before. Denies fevers, chills, chest pain, shortness of breath, nausea/vomiting, lightheadedness, weakness, numbness. No history of strokes. States she is currently asymptomatic. Related Data Home Medications Medication Instructions Recorded Confirmed aspirin 325 mg tablet,delayed 325 mg PO DAILY 05/14/22 02/10/24 release cholecalciferol (vitamin D3) 25 25 mcg PO QDAY 05/14/22 02/10/24 mcg (1,000 unit) capsule multivitamin (Multiple Vitamins 1 tab PO QDAY 05/14/22 02/10/24 tablet) acetaminophen 650 mg 650 mg PO BID PRN 11/24/23 02/10/24 tablet,extended release Previous Rx's Medication Instructions Recorded atorvastatin 40 mg tablet 40 mg PO .Bedtime #90 tabs 05/22/23 diltiazem HCl 120 mg 120 mg PO DAILY #90 caps 05/22/23 capsule,extended release 24 hr hydrochlorothiazide 25 mg tablet 25 mg PO QDAY #90 tabs 05/22/23 losartan 25 mg tablet 25 mg PO DAILY #90 tabs 05/22/23 metoprolol succinate 50 mg 50 mg PO DAILY #90 tabs 05/22/23 tablet,extended release 24 hr Allergies Allergy/AdvReac Type Severity Reaction Status Date / Time amoxicillin Allergy Mild Rash Verified 02/10/24 11:11 meloxicam AdvReac Mild upset Verified 02/10/24 11:11 stomach Review of Systems Status of ROS: Reports: 10 or more systems reviewed and unremarkable except as noted in History and below [facility] Medical History Osteoarthritis, multiple sites ?M15.9 - Polyosteoarthritis, unspecified (ICD-10) Obesity with body mass index (BMI) of 30.0 to 39.9 ?E66.9 - Obesity, unspecified (ICD-10) Squamous cell carcinoma of right lower leg (2018) ?C44.722 - Squamous cell carcinoma of skin of right lower limb, including hip (ICD-10) Hypertension ?I10 - Essential (primary) hypertension (ICD-10) Hyperlipidemia ?E78.5 - Hyperlipidemia, unspecified (ICD-10) Chronic lymphocytic leukemia (10/2017) ?C91.10 - Chronic lymphocytic leukemia of B-cell type not having achieved remission (ICD-10) Atrial fibrillation (03/26/19) ?I48.91 - Unspecified atrial fibrillation (ICD-10) Obstructive sleep apnea treated with continuous positive airway pressure (CPAP) (09/2012) ?G47.33 - Obstructive sleep apnea (adult) (pediatric) (ICD-10) ?Z99.89 - Dependence on other enabling machines and devices (ICD-10) Peripheral edema ?R60.9 - Edema, unspecified (ICD-10) History of recurrent urinary tract infection ?Z87.440 - Personal history of urinary (tract) infections (ICD-10) History of bone density study (2022) ?Z92.89 - Personal history of other medical treatment (ICD-10) Health care directive on file (01/10/21) ?Z78.9 - Other specified health status (ICD-10) Surgical History History of tonsillectomy (10/2017) ?Z90.89 - Acquired absence of other organs (ICD-10) History of laparoscopic cholecystectomy (10/27/06) ?Z90.49 - Acquired absence of other specified parts of digestive tract (ICD-10) History of cataract extraction (07/2014) ?Z98.49 - Cataract extraction status, unspecified eye (ICD-10) History of blepharoplasty (02/2015) ?Z98.890 - Other specified postprocedural states (ICD-10) History of bilateral ligation of fallopian tubes (1979) ?Z98.51 - Tubal ligation status (ICD-10) History of squamous cell carcinoma excision (07/2019) ?Z98.890 - Other specified postprocedural states (ICD-10) ?Z85.9 - Personal history of malignant neoplasm, unspecified (ICD-10) History of dilation and curettage (1979) ?Z98.890 - Other specified postprocedural states (ICD-10) History of colonoscopy ?Z98.890 - Other specified postprocedural states (ICD-10) Family History Father Prostate cancer Stroke, Onset Age: 70 Brother Prostate cancer Mother Stroke, Onset Age: 70 Social History Narrative: , 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, 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, 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-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 consumes alcohol exercises 2-3 times per week-30 min elliptical [address] What is your current living situation?: I presently have a place to live Problems where you live: pests, such as bugs, ants, or mice In the past 12 months, utilities in danger of being shut off: no In past 12 months, lack of transportation kept you from medical appts, meetings, work, or getting things needed for daily living: no In the past 12 mos, have been you worried that your food would run out before you had money to buy more?: never true In the past 12 mos, the food you bought just didn't last and you didn't have money to buy more?: never true Smoking Status: Never smoker Do you use any of these nicotine containing products: None Second hand tobacco smoke exposure: No How often do you have a drink containing alcohol: monthly or less How many standard drinks containing alcohol do you have on a typical day: 1 or 2 AUDIT-C Alcohol total score: 1 Non-prescribed substance use: denies use How often does anyone, including family, friends and others, physically hurt you: never How often does anyone, including family, friends and others, insult or talk down to you: never How often does anyone, including family, friends and others, threaten you with harm: never How often does anyone, including family, friends and others, scream or curse at you: never Little interest or pleasure in doing things: not at all Feeling down, depressed, or hopeless: not at all Exam Narrative: Exam Narrative: Const: Well-nourished, Well-developed, in no distress Eyes: PERRL, no conjunctival injection, and symmetrical lids HENT: Atraumatic external nose and ears. Moist mucous membranes. Neck: Symmetric, trachea midline, No thyromegaly. CVS: RRR, No murmurs or gallops. Peripheral pulses 2+ and equal in all extremities RESP: Unlabored respiratory effort. Clear to auscultation bilaterally. GI: Nontender/Nondistended, No rebound or guarding. MSK:Extremities w/o deformity, Normal Active ROM Skin: Warm, Dry. No rashes or lesions. Neuro: Normal Muscle tone, Cranial nerves 2-12 grossly intact, normal [id number], normal [id number], normal gait, normal strength 5/5 upper lower extremities bilaterally, normal sensation upper and lower extremities bilaterally, normal rapid alternating movements. Psych: Awake, Alert, & Oriented x3. Appropriate mood and affect. Const: Vital Signs, click to edit/add: Vital Signs - 24 hr 02/10/24 11:06 Temperature 96.6 F L Pulse Rate [Pulse Oximeter] 65 Respiratory Rate 18 Blood Pressure [Ri ght Upper Arm] 147/79 H Pulse Oximetry 95 Oxygen Delivery Me thod Room Air Course Vital Signs Vital signs: Initial Vital Signs Temperature 96.6 F L 02/10/24 11:06 Temperature Source Temporal Artery Scan 02/10/24 11:06 Pulse Rate 65 02/10/24 11:06 Respiratory Rate 18 02/10/24 11:06 Blood Pressure 147/79 H 02/10/24 11:06 Blood Pressure Mean 101 02/10/24 11:06 Blood Pressure Position Sitting 02/10/24 11:06 Pulse Oximetry 95 02/10/24 11:06 Oxygen Delivery Method Room Air 02/10/24 11:06 Vital Signs Temperature 96.6 F L 02/10/24 11:06 Pulse Rate 65 02/10/24 11:06 Respiratory Rate 18 02/10/24 11:06 Blood Pressure 147/79 H 02/10/24 11:06 Pulse Oximetry 95 02/10/24 11:06 Oxygen Delivery Method Room Air 02/10/24 11:06 Temperature 96.6 F L 02/10/24 11:06 Pulse Rate 65 02/10/24 11:06 Respiratory Rate 18 02/10/24 11:06 Blood Pressure 147/79 H 02/10/24 11:06 Pulse Oximetry 95 02/10/24 11:06 Oxygen Delivery Method Room Air 02/10/24 11:06 MDM - Dizziness MDM Narrative Medical decision making narrative: Patient is an 88-year-old female presenting for 2 episodes of dizziness that were short in nature. She is currently asymptomatic. No history of strokes and she is on a blood thinner. Considering the symptoms I do not think this is related to a stroke. I will still order CT scan of her head to look for any abnormalities. Since he is not currently symptomatic it is not necessary to call a code stroke. Denies headaches or any other neurological symptoms at this time. Will also order a CBC, BMP, troponin, EKG. Lab work all returned showing no concerning abnormalities. EKG and troponin shows no concerning abnormalities. Head CT was reviewed by myself and the radiologist shows no concerning abnormalities. She continues to be asymptomatic at this time. Considering everything I believe this was a short episode of benign proximal positional vertigo. I do not believe this was stroke related and she is now asymptomatic so I believe she is safe for discharge. She has a follow-up with her crt tomorrow and I explained to her that the symptoms return she can come back for re-evaluation. I also explained that if they return and persist she definitely should come back for re-evaluation. She is agreeable to this plan. Lab Data Labs: Lab Results 02/10/24 02/10/24 Range/Units 11:22 11:30 WBC 9.90 (4.50-11.00) K/uL RBC 5.18 (4.00-5.20) m/uL Hgb 15.0 (12.0-16.0) gm/dL Hct 45.3 (33.0-51.0) % MCV 88 (80-100) fL MCH 29 (26-34) pg MCHC 33 (32-36) gm/dL RDW Coeff of Braden 13.7 (11.5-15.5) % Plt Count 158 (140-440) K/uL Neut % (Auto) 41.7 L (42.0-72.0) % Lymph % (Auto) 47.9 H (20-44) % [place] % (Auto) 7.4 (0.0-11.0) % Eos % (Auto) 2.4 (0.0-7.0) % Baso % (Auto) 0.4 (0.0-3.0) % Neut # (Auto) 4.10 (1.7-7.0) K/uL Lymph # (Auto) 4.70 H (0.90-2.90) K/uL [place] # (Auto) 0.70 (0.00-0.90) K/UL Eos # (Auto) 0.24 (0.00-0.50) K/uL Baso # (Auto) 0.04 (0.00-0.30) K/uL Abs Immat Gran (auto) 0.02 (0.00-0.30) K/uL Imm/Tot Granulo (auto) 0.2 % Sodium 141 (135-149) mmol/L Potassium 3.7 (3.6-5.1) mmol/L Chloride 108 (96-114) mmol/L Carbon Dioxide 28 (20-32) mmol/L Anion Gap 5 L (7-15) mEq/L BUN 29 (7-30) mg/dL Creatinine 0.7 (0.5-1.5) mg/dL Estimated Creat Clear 37.82 Estimated GFR 83 ml/min Glucose 115 (60-115) mg/dL Calcium 10.5 (8.4-10.6) mg/dL POC Troponin I 0.00 L (0.01-0.04) ng/ml Imaging Data CT scan - head: Attestation: I have reviewed the pertinent imaging results. Radiologist's impression: Involutional changes. No acute appearing finding. Please note that all CT scans at this facility use dose modulation, iterative reconstruction, and/or weight-based dosing when appropriate to reduce radiation dose to as low as reasonably achievable. Dictated by Naveen Schroeder MD @ 02/10/2024 11:56:54 AM ECG Data Attestation: I personally reviewed and interpreted this ECG as follows: Prior ECG tracings: available for review Interpretation: Normal sinus rhythm with a first-degree AV block at a rate of 63 beats per minute, otherwise normal intervals, normal axis, no ST or T-wave abnormalities. Appears similar to previous EKG on file other than the new first-degree AV block. Discharge Plan Discharge Clinical Impression: Dizziness Patient Disposition: Home, Self-Care Condition: Stable Instructions: Vertigo (DC) Additional Instructions: If symptoms return it is reasonable to get re-evaluated. If they return and persist I recommend you come back for re-evaluation. Also return to emergency department for any new or worsening symptoms Prescriptions: No Action cholecalciferol (vitamin D3) 25 mcg (1,000 unit) capsule 25 mcg PO QDAY aspirin 325 mg tablet,delayed release (DR/EC) 325 mg PO DAILY multivitamin [Multiple Vitamins] Tablet 1 tab PO QDAY acetaminophen 650 mg tablet extended release 650 mg PO BID PRN losartan 25 mg tablet 25 mg PO DAILY Qty: 90 4RF hydrochlorothiazide 25 mg tablet 25 mg PO QDAY Qty: 90 4RF atorvastatin 40 mg tablet 40 mg PO .Bedtime Qty: 90 4RF metoprolol succinate 50 mg tablet extended release 24 hr 50 mg PO DAILY Qty: 90 4RF diltiazem HCl 120 mg capsule,extended release 24hr 120 mg PO DAILY Qty: 90 4RF Follow Up/Referrals: Zoila Carnes MD [Primary Care Provider] - Stand Alone Forms: [employer] Info Instructions
== END 2024-02-10 13:07 | disposition home or self-care (01) ==
PROVIDERS: Emergency Provider Student in an Organized Health Care Education/Training Program; PCP Family Medicine
DX: R06.02 Shortness of breath (principal)
CPT/HCPCS: 36415; 70450; 80048; 84484; 85025; 93005; 99283; 99284

== ENCOUNTER 2024-02-13 13:01 | Emergency (ER) | payer MEDICARE, OTHER, SELFPAY ==
[2024-02-13 13:14] VITALS: BP 145/79; PULSE 62; RESP 18; TEMP 35.9; O2SAT 94; BMI 31.0
--- NOTE | 2024-02-13 13:44 | ED_ITS ---
HPI - Headache General Date Seen: 02/13/24 Chief Complaint: Headache/Migraine Stated Complaint: head pressure Time Seen by Provider: 02/13/24 13:17 Source: patient Mode of arrival: ambulatory Limitations: no limitations History of Present Illness HPI Narrative: Patient is an 88-year-old female presenting to emergency department for some head pressure. She describes it as a band sensation around her head. Denies having headaches like this before. She noticed it this morning when she woke up. Went to an appointment with her doctor yesterday and was not having symptoms. Was here 3 days ago for dizziness and full workup was done at that time showing no acute abnormalities. Dizziness at that time only noticed at 30 seconds and went away. She has not had any further dizziness. Denies vision changes, weakness, numbness, chest pain, shortness of breath, lightheadedness, abdominal pain, nausea. Has not taking anything for the headache today. No other concerns noted Related Data Home Medications Medication Instructions Recorded Confirmed aspirin 325 mg tablet,delayed 325 mg PO DAILY 05/14/22 02/10/24 release cholecalciferol (vitamin D3) 25 25 mcg PO QDAY 05/14/22 02/10/24 mcg (1,000 unit) capsule multivitamin (Multiple Vitamins 1 tab PO QDAY 05/14/22 02/10/24 tablet) acetaminophen 650 mg 650 mg PO BID PRN 11/24/23 02/10/24 tablet,extended release Previous Rx's Medication Instructions Recorded atorvastatin 40 mg tablet 40 mg PO .Bedtime #90 tabs 05/22/23 diltiazem HCl 120 mg 120 mg PO DAILY #90 caps 05/22/23 capsule,extended release 24 hr hydrochlorothiazide 25 mg tablet 25 mg PO QDAY #90 tabs 05/22/23 losartan 25 mg tablet 25 mg PO DAILY #90 tabs 05/22/23 metoprolol succinate 50 mg 50 mg PO DAILY #90 tabs 05/22/23 tablet,extended release 24 hr Allergies Allergy/AdvReac Type Severity Reaction Status Date / Time amoxicillin Allergy Mild Rash Verified 02/10/24 11:11 meloxicam AdvReac Mild upset Verified 02/10/24 11:11 stomach Review of Systems Status of ROS: Reports: 10 or more systems reviewed and unremarkable except as noted in History and below [facility] Medical History Osteoarthritis, multiple sites ?M15.9 - Polyosteoarthritis, unspecified (ICD-10) Obesity with body mass index (BMI) of 30.0 to 39.9 ?E66.9 - Obesity, unspecified (ICD-10) Squamous cell carcinoma of right lower leg (2018) ?C44.722 - Squamous cell carcinoma of skin of right lower limb, including hip (ICD-10) Hypertension ?I10 - Essential (primary) hypertension (ICD-10) Hyperlipidemia ?E78.5 - Hyperlipidemia, unspecified (ICD-10) Chronic lymphocytic leukemia (10/2017) ?C91.10 - Chronic lymphocytic leukemia of B-cell type not having achieved remission (ICD-10) Atrial fibrillation (03/26/19) ?I48.91 - Unspecified atrial fibrillation (ICD-10) Obstructive sleep apnea treated with continuous positive airway pressure (CPAP) (09/2012) ?G47.33 - Obstructive sleep apnea (adult) (pediatric) (ICD-10) ?Z99.89 - Dependence on other enabling machines and devices (ICD-10) Peripheral edema ?R60.9 - Edema, unspecified (ICD-10) History of recurrent urinary tract infection ?Z87.440 - Personal history of urinary (tract) infections (ICD-10) History of bone density study (2022) ?Z92.89 - Personal history of other medical treatment (ICD-10) Health care directive on file (01/10/21) ?Z78.9 - Other specified health status (ICD-10) Surgical History History of tonsillectomy (10/2017) ?Z90.89 - Acquired absence of other organs (ICD-10) History of laparoscopic cholecystectomy (10/27/06) ?Z90.49 - Acquired absence of other specified parts of digestive tract (ICD- 10) History of cataract extraction (07/2014) ?Z98.49 - Cataract extraction status, unspecified eye (ICD-10) History of blepharoplasty (02/2015) ?Z98.890 - Other specified postprocedural states (ICD-10) History of bilateral ligation of fallopian tubes (1979) ?Z98.51 - Tubal ligation status (ICD-10) History of squamous cell carcinoma excision (07/2019) ?Z98.890 - Other specified postprocedural states (ICD-10) ?Z85.9 - Personal history of malignant neoplasm, unspecified (ICD-10) History of dilation and curettage (1979) ?Z98.890 - Other specified postprocedural states (ICD-10) History of colonoscopy ?Z98.890 - Other specified postprocedural states (ICD-10) Family History Father Prostate cancer Stroke, Onset Age: 70 Brother Prostate cancer Mother Stroke, Onset Age: 70 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 History 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: , 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, 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, 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-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 consumes alcohol exercises 2-3 times per week-30 min elliptical [address] What is your current living situation?: I presently have a place to live Problems where you live: pests, such as bugs, ants, or mice In the past 12 months, utilities in danger of being shut off: no In past 12 months, lack of transportation kept you from medical appts, meetings, work, or getting things needed for daily living: no In the past 12 mos, have been you worried that your food would run out before you had money to buy more?: never true In the past 12 mos, the food you bought just didn't last and you didn't have money to buy more?: never true Smoking Status: Never smoker Do you use any of these nicotine containing products: None Second hand tobacco smoke exposure: No How often do you have a drink containing alcohol: monthly or less How many standard drinks containing alcohol do you have on a typical day: 1 or 2 AUDIT-C Alcohol total score: 1 Non-prescribed substance use: denies use How often does anyone, including family, friends and others, physically hurt you : never How often does anyone, including family, friends and others, insult or talk down to you: never How often does anyone, including family, friends and others, threaten you with harm: never How often does anyone, including family, friends and others, scream or curse at you: never Little interest or pleasure in doing things: not at all Feeling down, depressed, or hopeless: not at all Exam Narrative: Exam Narrative: Const: Well-nourished, Well-developed, in mild distress Eyes: PERRL, no conjunctival injection, and symmetrical lids HENT: Atraumatic external nose and ears. Moist mucous membranes. Neck: Symmetric, trachea midline, No thyromegaly. CVS: RRR, No murmurs or gallops. Peripheral pulses 2+ and equal in all extremities RESP: Unlabored respiratory effort. Clear to auscultation bilaterally. GI: Nontender/Nondistended, No rebound or guarding. MSK:Extremities w/o deformity, Normal Active ROM Skin: Warm, Dry. No rashes or lesions. Neuro: Normal Muscle tone, Cranial nerves 2-12 grossly intact, normal [id number], normal [id number], normal gait, normal strength 5/5 upper lower extremities bilaterally, normal sensation upper and lower extremities bilaterally, normal rapid alternating movements. Psych: Awake, Alert, & Oriented x3. Appropriate mood and affect. Const: Vital Signs, click to edit/add: Vital Signs - 24 hr 02/13/24 13:14 02/13/24 15:20 Temperature 96.6 F L 96.6 F L Pulse Rate [Pulse Oximeter] 62 62 Respiratory Rate 18 18 Blood Pressure [Ri ght Upper Arm] 145/79 H 145/79 H Pulse Oximetry 94 Oxygen Delivery Me thod Room Air Course Vital Signs Vital signs: Initial Vital Signs Temperature 96.6 F L 02/13/24 13:14 Temperature Source Temporal Artery Scan 02/13/24 13:14 Pulse Rate 62 02/13/24 13:14 Respiratory Rate 18 02/13/24 13:14 Blood Pressure 145/79 H 02/13/24 13:14 Blood Pressure Mean 101 02/13/24 13:14 Blood Pressure Position Sitting 02/13/24 13:14 Pulse Oximetry 94 02/13/24 13:14 Oxygen Delivery Method Room Air 02/13/24 13:14 Vital Signs Temperature 96.6 F L 02/13/24 13:14 Pulse Rate 62 02/13/24 13:14 Respiratory Rate 18 02/13/24 13:14 Blood Pressure 145/79 H 02/13/24 13:14 Pulse Oximetry 94 02/13/24 13:14 Oxygen Delivery Method Room Air 02/13/24 13:14 Temperature 96.6 F L 02/13/24 15:20 Pulse Rate 62 02/13/24 15:20 Respiratory Rate 18 02/13/24 15:20 Blood Pressure 145/79 H 02/13/24 15:20 Pulse Oximetry 94 02/13/24 13:14 Oxygen Delivery Method Room Air 02/13/24 13:14 Medications Administered Medications: Discontinued Medications Generic Name Dose Route Start Last Admin Trade Name Freq PRN Reason Stop Dose Admin Ketorolac Tromethamine 30 mg 02/13/24 13:33 02/13/24 13:48 Ketorolac 30 Mg/Ml Inj IM 02/13/24 13:34 30 mg ONCE ONE Administration MDM - Headache MDM Narrative Medical decision making narrative: Patient is an 88-year-old female presenting for headache. By her description this sounds like a tension headache. She does head CT scan a couple days ago in do not believe is necessary to repeat this CT scan. She has relatively mild symptoms and specifically states it feels like there is a band around her head. She is not having any other neurological symptoms with a completely normal neurological exam. I spoke to her about treatment options and she would prefer to start with the Toradol. Considering her normal kidney function a couple days ago I am comfortable given her this Toradol. She has never been told not to take NSAIDs. She was feeling much better after this injection in feels comfortable with discharge. Discharge Plan Discharge Clinical Impression: Tension headache Patient Disposition: Home, Self-Care Condition: Improved Instructions: Tension Headache (ED) Additional Instructions: Take Tylenol and ibuprofen for headache. Return to the emergency department for any new or worsening symptoms Prescriptions: No Action cholecalciferol (vitamin D3) 25 mcg (1,000 unit) capsule 25 mcg PO QDAY aspirin 325 mg tablet,delayed release (DR/EC) 325 mg PO DAILY multivitamin [Multiple Vitamins] Tablet 1 tab PO QDAY acetaminophen 650 mg tablet extended release 650 mg PO BID PRN losartan 25 mg tablet 25 mg PO DAILY Qty: 90 4RF hydrochlorothiazide 25 mg tablet 25 mg PO QDAY Qty: 90 4RF atorvastatin 40 mg tablet 40 mg PO .Bedtime Qty: 90 4RF metoprolol succinate 50 mg tablet extended release 24 hr 50 mg PO DAILY Qty: 90 4RF diltiazem HCl 120 mg capsule,extended release 24hr 120 mg PO DAILY Qty: 90 4RF Follow Up/Referrals: Zoila Carnes MD [Primary Care Provider] - Stand Alone Forms: [email or web address] Info Instructions
[2024-02-13] MEDS: KETOROLAC 30 MG/ML inj IM (13:48)
[2024-02-13 15:20] VITALS: BP 145/79; PULSE 62; RESP 18; TEMP 35.9
== END 2024-02-13 15:20 | disposition home or self-care (01) ==
PROVIDERS: Emergency Provider Student in an Organized Health Care Education/Training Program; PCP Family Medicine
DX: G44.209 Tension-type headache, unspecified, not intractable (principal)
CPT/HCPCS: 96372; 99282; 99283; J1885

== ENCOUNTER 2024-05-23 10:02 | Outpatient (CLI) | payer MEDICARE, OTHER, SELFPAY ==
--- OUTSIDE RECORDS SUMMARY | 2024-05-23 23:26 | XMS_ITS | Clinical Summary ---
Author Organization [facility] Address [address] [place] [address] Care Team Providers Care Concert Pianist Name Role Phone Elsewhere, Pcp Primary Care Provider Unavailabl e Source Comments Patient records contain information from all sites at [facility]. For routine questions regarding patient records, call [phone] during business hours, M-F 8:00 AM - 5:00 PM Central Time. Record requests for emergency care only can be directed to [phone] at any time.[facility] Allergies Active Allergy Reactions Criticality Noted Date Comments Amoxicillin Rash 05/05/2018 Meloxicam GI intolerance 10/12/2017 Penicillin Rash 02/15/2010 Medications Medication Sig Dispensed Refills Start Date End Date Status hydroCHLOROthiazide (for_HYDRODIURIL) 25 mg tablet Take 1 tablet by mouth daily. 06/08/2017 Active acetaminophen (for_TYLENOL 8 HR) 650 mg ER tablet Take 1,300 mg by mouth every 8 (eight) hours. Active losartan (COZAAR) 25 mg tablet Take 1 tablet by mouth every morning. 10/27/2017 Active multivitamin tablet Take 1 tablet by mouth every morning. 10/27/2017 Active rosuvastatin (CRESTOR) 10 mg tablet Take 10 mg by mouth daily. Active metoprolol succinate (TOPROL-XL) 50 mg 24 hr tablet TAKE 1 TABLET BY MOUTH ONCE DAILY. DO NOT CRUSH OR CHEW 90 tablet 05/26/2020 Active dilTIAZem CD (CARDIZEM CD/CARTIA XT) 120 mg 24 hr capsule TAKE 1 CAPSULE BY MOUTH EVERY DAY 90 capsule 05/26/2020 Active UNABLE TO FIND Vitamin D - unsure of units Active atorvastatin (LIPITOR) 40 mg tablet Take 40 mg by mouth at bedtime. 12/22/2022 Active aspirin 325 mg tablet Take 1 tablet by mouth daily. 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 I discussed the the management of atrial [...] Never Smokeless Tobacco: Never Tobacco Cessation:Counseling Given: Not Answered [facility] Utilities Answer Date Recorded In the past 12 months has e [employer], oil, or water [employer] threatened to shut off services in your home? No 02/10/2024 Humiliation, Afraid, Rape, and Kick questionnair e [...] How often do you attend chur or voodoo services? More than 4 times per year [...] Answer Date Recorded PHQ-2 Score 0 04/21/2019 [facility] Occupat ional [facility] - [...] exercise (like a brisk walk)? 3 days 02/10/2024 On average, how many minutes do you engage in exercise at this level? 20 min 02/10/2024 Hunger Vital Sign Answer Date Recorded Within the past 12 months, y ou worried that your food would run out before you got the money to buy more. Never true 02/10/20 24 Within the past 12 months, t he food you bought just didn't last and you didn't have money to get more. Never true 02/10/2024 PRAPARE - Transportation Answer Date Re corded In the past 12 months, has l ack of transportation kept you from medical appointments or from getting medications? No 01/15 In the past 12 months, has l ack of transportation kept you from meetings, work, or from getting things needed for daily living? No 02/10/2024 Nutrition Answer Date Recorded Nutrition: EVOO Fat Source Yes 02/09 On average, how many serving s of fruits and vegetables do you eat per day (serving size is equal to 1 cup or approximately the size of a tennis ball)? 3-5 02/10/2024 Dental Answer Date Recorded Dental: Regular Dentist Yes 05/30/20 21 Employment Answer Date Recorded Employment status Retired 02/10/2024 Housing Stability Answer Date Recorded What is your living situation today? I have a [facility] place to live 02/10/2024 Education Answer Date Recorded What is the highest level of school you have completed or the highest degree you have received? 12th grade 09/08/2019 Sex and Gender Information Value Date Recorded Sex Assigned at Female 01/11/2022 3:49 PM SOCIAL SERVICES SPECIALIST Gender Identity Female 04/24/2018 2:50 PM CDT Sexual Orientation Straight 04/24/2018 2: 50 PM CDT Last Filed Vital Signs Vital Sign Reading Time Taken Comments Blood Pressure 149/81 02/11/2024 10:46 AM CDT Pulse 61 02/11/2024 10:46 AM CDT Temperature 36.1 ??C (97 ??F) 02/11/2024 10:46 AM CDT Respiratory Rate 16 10/28/2017 12:17 PM SOCIAL SERVICES SPECIALIST Oxygen Saturation 94% 02/11/2024 10:46 AM CDT Inhaled Oxygen Concentration - - Weight 93.5 kg (206 lb 2.1 oz) 02/11/2024 10:46 AM CDT Height 170.8 cm (5' 7.24) 02/11/2024 10:46 AM C DT Body Mass Index 32.05 02/11/2024 10:46 AM CDT Plan of Treatment Health Maintenance Due Date Last Done Comments COVID-19 Vaccine ( season) 2023 08/26/2023, 08/20/2022, 03/31/2022, Additional history exists Depression Screening (Annual PHQ-2) 11/16/2023 Fall Risk Screen (Annual) 11/16/2023 Creatinine Level (Kidney Function Test) 08/06/2024 08/06/2023, 02/18/2023, 02/18/2023, Additional history exists Potassium Level 08/06/2024 08/06/2023, 04/0 03/2023, 09/04/2022, Additional history exists Sodium Level 08/06/2024 08/06/2023, 083 , 04/19/2014, Additional history exists Influenza Vaccine (#1) 2024 , 08/20/2022, 07/04/2021, Additional history exists DTaP,Tdap,and Td Vaccines (3 - Td or Tdap) 05/14/2032 05/14/2022, 02/18/2010, 02/18/2010, Additional history exists Pneumococcal vaccine (65+ years) Completed 06/13/2015, 03/18/2015, 09/30/2004, Additional history exists Zoster Vaccines Completed 02/18/2021, 11/17/2020 HPV Vaccines Aged Out No longer eligi ble based on patient's age to complete this topic Medical Devices Implanted Type Area School Transportation Director Device Identifier Shelf Expiration Date Model / Serial / Lot Ocular Lens Ocular Lens Eye Procedures Procedure Name Priority Date/Time Associated Diagnosis Comments HEMATOLOGY/ONCOLOGY - BLOOD, EXTERNAL LAB RESULTS Routine 08/06/2023 from Last 3 Months or Most Recently Relevant to Health Maintenance Results * Hematology/Oncology - Blood, External Lab [...] Provider LAB BLOOD NON ADD-ON SCANNED REPORT from Last 3 Months or Most Recently Relevant to Health Maintenance Advance Directives For more information, please contact: [phone] Documents on File Type Date Recorded Patient Branch Credit Counselor Expl anation Advance Directives 06/03/2021 10:40 AM [facility] Care Directive Advance Directives 12/11/2017 12:00 AM Leg acy document. See document viewer. Advance Directives 07/01/2016 12:00 AM Leg acy document. See document viewer. Healthcare Agents on File Name Relationship Healthcare Agent Relationshi p Communication Alexandr Del Angel Spouse Health Care Agent Luis Bean First Alternate Health Care Agent Nataliya Becerra Second Alternate Health Care Agent Care Teams Concert Pianist Relationship Specialty Start Date End Date Elsewhere, Pcp PCP - General Internal Medicine 04/27/23
--- OUTSIDE RECORDS SUMMARY | 2024-05-23 23:27 | XMS_ITS ---
Author Organization [facility] Address [address] [place] [address] Care Team Providers Care Make Up Man Name Role Phone Elsewhere, Pcp Primary Care [...] treatments are documented for this patient in [facility]. Treatments may have been administered in another system. Lifetime Dose Tracking * Chemical Lifetime Dose Automatic Entry Manual Entr y Radiation 333.9 mGy 333.9 mGy 0 mGy Fluoro Time 2.85 minutes 2.85 minutes 0 minutes
--- OUTSIDE RECORDS SUMMARY | 2024-05-23 23:27 | XMS_ITS ---
Author Organization [facility] Address [address] [place] [address] Care Team Providers Care Airplane Gastank Liner Assembler Name Role Phone Unavailable Unavailable Unavailable Surgery Details Not on file Complications Check Surgery Details section. Procedure Estimated Blood Loss Check Surgery Details section. Procedure Findings Check Surgery Details section. Procedure Specimens Taken Check Surgery Details section.
--- OUTSIDE RECORDS SUMMARY | 2024-05-23 23:27 | XMS_ITS | Referral Summary ---
Author Organization [facility] Address [address] [place] [address] Care Team Providers Care Skiagrapher Name Role Phone Elsewhere, Pcp Primary Care Provider Unavailabl e Source Comments Patient records contain information from all sites at [facility]. For routine questions regarding patient records, call [phone] during business hours, M-F 8:00 AM - 5:00 PM Central Time. Record requests for emergency care only can be directed to [phone] at any time.[facility] Allergies Active Allergy Reactions Criticality Noted [...] & Plan: Will obtain the EKG from [facility]. I discussed the the management of [...] Tobacco: Never Tobacco Cessation:Counseling Given: Not Answered [facility] Utilities Answer Date Recorded In the past 12 months has th e [email or web address], gas, oil, or water company threatened to shut off services in your [...] How often do you attend chur or protestant services? More than 4 times per year 08/30/2022 Do you belong to any clubs o r organizations such as pentecostalism groups, unions, fraternal or athletic groups, or [...] Answer Date Recorded PHQ-2 Score 0 04/21/2019 [facility] of Occupat ional Health - Occupational Stress [...] money to buy more. Never true 02/10/20 Within the past 12 months, t he [...] your living situation today? [facility] 02/10/2024 Education Answer Date Recorded What is the highest level of school you have completed or the highest degree you have received? 12th grade 09/08/2019 Sex and Gender Information Value Date Recorded Sex Assigned at Female 01/11/2022 3:49 PM LABEL PINKER Gender Identity Female 04/24/2018 2:50 PM CDT Sexual Orientation Straight 04/24/2018 2: 50 PM CDT Last Filed Vital Signs Vital Sign Reading Time Taken Comments Blood Pressure 149/81 02/11/2024 10:46 AM CDT Pulse 61 02/11/2024 10:46 AM CDT Temperature 36.1 ??C (97 ??F) 02/11/2024 10:46 AM CDT Respiratory Rate 16 10/28/2017 12:17 PM LABEL PINKER Oxygen Saturation 94% 02/11/2024 10:46 AM CDT Inhaled Oxygen Concentration - - Weight 93.5 kg (206 lb 2.1 oz) 02/11/2024 10:46 AM CDT Height 170.8 cm (5' 7.24) 02/11/2024 10:46 AM C DT Body Mass Index 32.05 02/11/2024 10:46 AM CDT Plan of Treatment Not on file Medical Devices Implanted Type Area Vocational Training Teacher Device Identifier Shelf Expiration Date Model / [...] Advance Directives For more information, please contact: [phone] Documents on File Type Date Recorded Patient Self Pay Collector Expl anation Advance Directives 06/03/2021 10:40 AM [facility] Care Directive Advance Directives 12/11/2017 12:00 AM Leg acy document. See document viewer. Advance Directives 07/01/2016 12:00 AM Leg acy document. See document viewer. Healthcare Agents on File Name Relationship Healthcare Agent Relationshi p Communication Alexandr Del Angel Spouse Health Care Agent Luis Bean First Alternate Health Care Agent Natlaiya Becerra Second Alternate Health Care Agent Care Teams Skiagrapher Relationship Specialty Start Date End Date Elsewhere, Pcp PCP - General Internal Medicine 04/27/23
--- OUTSIDE RECORDS SUMMARY | 2024-05-23 23:27 | XMS_ITS | Encounter Summary ---
Author Organization [facility] Address [address] [place] [address] Care Team Providers Care Community Cultural Development Officer Name Role Phone Elsewhere, Pcp Primary Care Provider Unavailabl e Encounter Details Date Type Department Care Team (Late st Contact Info) Description 07/09/2005 Historical Ophthalmology [facility] Fransico Pederson M.D. [address] [place] [id number] Social History Tobacco Use Types Packs/Day Years Used Date Smoking Tobacco: Never Assessed Sex and Gender Information Value Date Recorded Sex Assigned at Female 01/11/2022 3:49 PM PAY STATION ATTENDANT Gender Identity Female 04/24/2018 2:50 PM CDT [...] #3 Epiretinal membrane right>left CDM Reports - [employer] Id: [id number] Status: Fnl documented in this encounter Plan of Treatment Not on file documented as of this encounter Visit Diagnoses Not on filedocumented in this encounter Care Teams Community Cultural Development Officer Relationship Specialty Start Date End Date Elsewhere, Pcp PCP - General Internal Medicine 04/27/23 documented as of this encounter
--- OUTSIDE RECORDS SUMMARY | 2024-05-23 23:27 | XMS_ITS | Clinical Summary ---
Author Organization [facility] Address [place], [place] [address] Care Team Providers Care Collections Agent Name Role Phone Zoila Carnes MD Primary [...] Take 50 mg by mouth once daily. 08/13/2022 Active rosuvastatin (CRESTOR) 10 mg tablet Take 40 mg by mouth once daily. Active acetaminophen SR (TYLENOL ARTHRITIS) 650 mg Extended-Release tablet Take 1,300 mg by mouth every 8 hours. Active losartan (COZAAR) 25 mg tablet Take 25 mg by mouth once daily. 11/14/2022 Active metoprolol succinate (TOPROL XL) 50 mg sustained-release tablet Take 50 mg by mouth once daily. 08/24/2022 Active dilTIAZem CD (CARDIZEM CD) 120 mg extended release 24 hr capsule Take 120 mg by mouth once daily. 08/13/2022 Active Social History Tobacco Use Types [...] - - Pulse 60 12/10/2022 11:09 AM CASEWORK SPECIALIST Temperature - - Respiratory Rate - - Oxygen Saturation 96% 12/10/2022 11:09 AM CASEWORK SPECIALIST Inhaled Oxygen Concentration - - Weight 97.1 kg (214 lb) 12/10/2022 11:09 AM CASEWORK SPECIALIST Height - - Body Mass Index - - Plan of Treatment Health Maintenance Due Date Last Done Comments Tdap 1946 Depression screening for age 12+ 1947 BMI (ht and wt on same day) for age 18+ 1953 Tetanus booster 1955 Zoster (shingles) series for age 50+ (1 of 2) 08/02/19 85 DEXA/DXA scan for age 65+ 2000 Medicare Wellness for age 65+ 2000 Pneumococcal series for age 65+ (1 of 1 - PCV) 000 COVID-19 vaccine series ( - 2022-24 season) 3 Influenza for age 65+ 07/17/2024 Care Teams Collections Agent Relationship Specialty Start Date End Date Zoila Carnes MD [address] [place] [address] PCP - General Family Practice 12/13/19
== END 2024-05-23 10:03 | disposition home or self-care (01) ==
LOC: NFLDREF 23:24
PROVIDERS: PCP Family Medicine; Referring Provider Family Medicine; Visit Provider Family Medicine
DX: E78.5 Hyperlipidemia, unspecified (principal); I10 Essential (primary) hypertension; E55.9 Vitamin D deficiency, unspecified; M81.0 Age-related osteoporosis without current pathological fracture
CPT/HCPCS: 80053; 80061; 82306

== ENCOUNTER 2024-08-24 09:18 | Outpatient (CLI) | payer MEDICARE, OTHER, SELFPAY ==
--- OUTSIDE RECORDS SUMMARY | 2024-08-24 09:24 | XMS_ITS | Referral Summary ---
Author Organization [facility] Address [address] [place] [address] Care Team Providers Care Beater Tender Name Role Phone Elsewhere, Pcp Primary Care Provider Unavailabl e Source Comments Patient records contain information from all sites at [facility]. For routine questions regarding patient records, call [phone] during business hours, M-F 8:00 AM - 5:00 PM Central Time. Record requests for emergency care only can be directed to [phone] at any time.[facility] Encounters Date Type Department Care Team Description 06/07/2024 Clinical Communication Division of Hematology in [place], [place] [address] [place] [address] Theron Monsalve M.D., Ph.D. Lab letter from Last 3 Months Allergies Active Allergy Reactions Criticality Noted Date [...] Carcinoma Right 12/12/2019 Atrial Fibrillation Paroxysmal 04/21/2019 Assessment & Plan (04/21/2019 1:37 PM CDT): Will obtain the EKG from [facility]. I discussed the the management of atrial [...] Having Achieved Remission 11/03/2017 Hypertension NOS 10/27/2017 Assessment & Plan (04/21/2019 1:38 PM CDT): She states that she has white coat syndrome and that her blood pressures at cardiac rehab while in the 120s. I asked her to call if her home blood pressures at cardiac rehab per greater than 130. Continue current antihypertensives. Hypercholesterolemia 10/27/2017 Assessment & Plan (04/21/2019 1:38 PM CDT): Continue Crestor. Immunizations Name Administration Dates Next Due Influenza high dose QV(65 ye ars or older) (PF) 08/07/2020 Influenza, Unspecified 08/20/2016,2014,08/21/2014,2012,09/09/2012,08/14/2011,08/28/2010,0 2009,09/02/1999,09/03/1998 PCV13 06/13/2015 PPSV23 09/30/2004 Td (Adult), adsorbed 05/28/2000 Tdap 02/18/2010 Social History Tobacco Use Types Packs/Day Years Used Date Smoking Tobacco: Never Smokeless Tobacco: Never Tobacco Cessation:Counseling Given: Not Answered [facility] Ibetorities Answer Date Recorded In the past 12 months has e [employer], gas, oil, or water [employer] threatened to shut off services in your [...] often do you attend chur ch or religion services? More than 4 times per year [...] Answer Date Recorded PHQ-2 Score 0 04/21/2019 [facility] Occupat ional Health - [...] your living situation today? I have a [facility] place to live 02/10/2024 Education Answer Date Recorded What is the highest level of school you have completed or the highest degree you have received? 12th grade 09/08/2019 Sex and Gender Information Value Date Recorded Sex Assigned at Female 01/11/2022 3:49 PM BOOM MASTER Gender Identity Female 04/24/2018 2:50 PM CDT Sexual Orientation Straight 04/24/2018 2: 50 PM CDT Last Filed Vital Signs Vital Sign Reading Time Taken Comments Blood Pressure 149/81 02/11/2024 10:46 AM CDT Pulse 61 02/11/2024 10:46 AM CDT Temperature 36.1 ??C (97 ??F) 02/11/2024 10:46 AM CDT Respiratory Rate 16 10/28/2017 12:17 PM BOOM MASTER Oxygen Saturation 94% 02/11/2024 10:46 AM CDT Inhaled Oxygen Concentration - - Weight 93.5 kg (206 lb 2.1 oz) 02/11/2024 10:46 AM CDT Height 170.8 cm (5' 7.24) 02/11/2024 10:46 AM C DT Body Mass Index 32.05 02/11/2024 10:46 AM CDT Plan of Treatment Upcoming Encounters Date Type Department Care Team (Late st Contact Info) Description 08/31/2024 10:45 AM CDT Office Visit Division of Hematology in [place], [place] [address] [place] [address] Theron Monsalve M.D., Ph.D. [address] [place] [address] Medical Devices Implanted Type Area Waterproofing Machine Operator Device Identifier Shelf Expiration Date Model / [...] Advance Directives For more information, please contact: [phone] Documents on File Type Date Recorded Patient Utility Porter Expl anation Advance Directives 06/03/2021 10:40 AM [facility] Care Directive Advance Directives 12/11/2017 12:00 AM Leg acy document. See document viewer. Advance Directives 07/01/2016 12:00 AM Leg acy document. See document viewer. Healthcare Agents on File Name Relationship Healthcare Agent Relationshi p Communication Alexandr Del Angel Spouse Health Care Agent Luis Del Angel First Alternate Health Care Agent Nataliya Becerra Second Alternate Health Care Agent Care Teams Beater Tender Relationship Specialty Start Date End Date Elsewhere, Pcp PCP - General Internal Medicine 04/27/23
--- OUTSIDE RECORDS SUMMARY | 2024-08-24 09:24 | XMS_ITS | Encounter Summary ---
Author Organization [facility] Address [address] [place] [address] Care Team Providers Care Mental Health Technician Name Role Phone Elsewhere, Pcp Primary Care Provider Unavailabl e Reason for Visit * Reason Onset Date Comments Lab letter 06/07/2024 Encounter Details Date Type Department Care Team (Late st Contact Info) Description 06/07/2024 Clinical Communication Division of Hematology in [place], [place] [address] [place] [phone] Theron Monsalve M.D., Ph.D. [address] [place] [phone] Lab letter Social History Tobacco Use Types Packs/Day Years Used Date Smoking Tobacco: Never Smokeless Tobacco: Never [facility] Utilities Answer Date Recorded In the past 12 months has [facility] [employer], gas, oil, or water [employer] threatened to shut off services in your [...] How often do you attend chur or spiritism services? More than 4 times per year [...] Answer Date Recorded PHQ-2 Score 0 04/21/2019 [facility] of Occupat ional Health - Occupational Stress [...] your living situation today? I have a [facility] place to live 02/10/2024 Education Answer Date Recorded What is the highest level of school you have completed or the highest degree you have received? 12th grade 09/08/2019 Sex and Gender Information Value Date Recorded Sex Assigned at Female 01/11/2022 3:49 PM WIRELESS ENGINEER Gender Identity Female 04/24/2018 2:50 PM CDT Sexual Orientation Straight 04/24/2018 2: 50 PM CDT documented as of this encounter Miscellaneous Notes * Telephone Encounter - Rishabh Baker R.NHoney - 06/08/2024 8:42 AM CDT Lab letter sent for labs around 08/31/2024. documented in this encounter Plan of Treatment Upcoming Encounters Date Type Department Care Team (Late st Contact Info) Description 08/31/2024 10:45 AM CDT Office Visit Division of Hematology in [place], [place] [address] [place] [address] Theron Monsalve M.D., Ph.D. [address] [place] [address] documented as of this encounter Visit Diagnoses Not on filedocumented in this encounter Additional Health Concerns Assessment Noted Time PHQ-9 Depression Total Score: 4 06/13/20 15 8:44 AM CDT documented as of this encounter Care Teams Mental Health Technician Relationship Specialty Start Date End Date Elsewhere, Pcp PCP - General Internal Medicine 04/27/23 documented as of this encounter
--- OUTSIDE RECORDS SUMMARY | 2024-08-24 09:24 | XMS_ITS ---
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 I [...] Plan (04/21/2019 1:38 PM CDT): Continue Crestor. Current Oncology Plans No current plan information found. Past Plans No past plan information found. Radiation Treatments * No radiation treatments are documented for this patient in [facility]. Treatments may have been administered in another system. Lifetime Dose Tracking * Chemical Lifetime Dose Automatic Entry Manual Entr y Radiation 333.9 mGy 333.9 mGy 0 mGy Fluoro Time 2.85 minutes 2.85 minutes 0 minutes
--- OUTSIDE RECORDS SUMMARY | 2024-08-24 09:24 | XMS_ITS | Clinical Summary ---
Author Organization [facility] Address [address] [place] [address] Care Team Providers Care Emergency Physician Name Role Phone Elsewhere, Pcp Primary Care Provider Unavailabl e Source Comments Patient records contain information from all sites at [facility]. For routine questions regarding patient records, call [phone] during business hours, M-F 8:00 AM - 5:00 PM Central Time. Record requests for emergency care only can be directed to [phone] at any time.[facility] Allergies Active Allergy Reactions Criticality Noted Date [...] PM CDT): Will obtain the EKG from [facility]. I discussed the the management of atrial [...] Plan (04/21/2019 1:38 PM CDT): Continue Crestor. Encounters Date Type Department Care Team Description 06/07/2024 Clinical Communication Division of Hematology in [place], [place] [address] [place] [address] Theron Monsalve M.D., Ph.D. Lab letter from Last 3 Months Immunizations Name Administration Dates Next Due Influenza [...] Tobacco: Never Tobacco Cessation:Counseling Given: Not Answered [facility] Utilities Answer Date Recorded In the past 12 months has e [employer], gas, oil, or water [employer] threatened to shut off services in your [...] week 08/30/2022 How often do you attend [facility] or denominational services? 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 [address] [place] [address] Health Maintenance Due Date Last Done Comments RSV vaccine - (32-36 weeks) or 60+ years (1 - 1-dose 75+ series) 2010 Depression Screening (Annual PHQ-2) 11/16/2023 Fall Risk Screen (Annual) 11/16/2023 COVID-19 Vaccine ( season) 2024 08/26/2023, 08/20/2022, 03/31/2022, Additional history exists Creatinine Level (Kidney Function Test) 08/06/2024 08/06/2023, 02/18/2023, 02/18/2023, Additional history exists Potassium Level 08/06/2024 08/06/2023, 04/0 03/2023, 09/04/2022, Additional history exists Sodium Level 08/06/2024 08/06/2023, 06/18, 04/19/2014, Additional history exists Influenza Vaccine (#1) [...] this topic Medical Devices Implanted Type Area Auto Repair Technician Device Identifier Shelf Expiration Date Model / [...] Advance Directives For more information, please contact: [phone] Documents on File Type Date Recorded Patient Quality Tech Expl anation Advance Directives 06/03/2021 10:[address] [facility] Care Directive Advance Directives 12/11/2017 12:00 AM Leg acy document. See document viewer. Advance Directives 07/01/2016 12:00 AM Leg acy document. See document viewer. Healthcare Agents on File Name Relationship Healthcare Agent Relationshi p Communication Alexandr Del Angel Spouse Health Care Agent Luis Del Angel First Alternate Health Care Agent Nataliya Becerra Second Alternate Health Care Agent Care Teams Emergency Physician Relationship Specialty Start Date End Date Elsewhere, Pcp PCP - General Internal Medicine 04/27/23
--- OUTSIDE RECORDS SUMMARY | 2024-08-24 09:24 | XMS_ITS | Clinical Summary ---
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
--- OUTSIDE RECORDS SUMMARY | 2024-08-24 09:24 | XMS_ITS ---
Author Organization [facility] Address [address] [place] [address] Care Team Providers Care Business Support Administrator Name Role Phone Unavailable Unavailable Unavailable Surgery Details Not on file Complications Check Surgery Details section. Procedure Estimated Blood Loss Check Surgery Details section. Procedure Findings Check Surgery Details section. Procedure Specimens Taken Check Surgery Details section.
--- OUTSIDE RECORDS SUMMARY | 2024-08-24 09:24 | XMS_ITS | Encounter Summary ---
Author Organization [facility] Address [address] [place] [address] Care Team Providers Care Hose Inspector Name Role Phone Elsewhere, Pcp Primary Care Provider Unavailabl e Encounter Details Date Type Department Care Team (Late st Contact Info) Description 07/09/2005 Historical Ophthalmology [facility] Fransico Pederson M.D. 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 [address] [place] [address] documented as of this encounter Visit Diagnoses Not on filedocumented in this encounter Care Teams Hose Inspector Relationship Specialty Start Date End Date Elsewhere, Pcp PCP - General Internal Medicine 04/27/23 documented as of this encounter
[2024-08-24 09:39] LABS: Basophils Percent Auto 0.3 % (0.0-3.0); Eosinophils Percent Auto 2.8 % (0.0-7.0); Hematocrit 45.4 % (33.0-51.0); Hemoglobin* 14.8 gm/dL (12.0-16.0); Immature Granulocytes Pct Auto 0.2 %; Lymphocytes Percent Auto 52.8 % (20-44); Mean Corpuscular HGB Conc 33 gm/dL (32-36); Mean Corpuscular Hemoglobin 29 pg (26-34); Mean Corpuscular Volume 88 fL (80-100); Monocytes Percent Auto 6.4 % (0.0-11.0); Neutrophils Percent Auto 37.5 % (42.0-72.0); Platelet Count* 153 K/uL (140-440); RDW Coefficient of Variation % 13.5 % (11.5-15.5); Red Blood Count 5.16 m/uL (4.00-5.20)
[2024-08-24 09:43] LABS: Slide Review Reflex Yes
[2024-08-24 09:52] LABS: Potassium* 3.8 mmol/L (3.6-5.1)
[2024-08-24 09:55] LABS: Alkaline Phosphatase* 113 U/L (40-150); Aspartate Amino Transferase* 25 U/L (12-35); Bilirubin Total* 1.3 mg/dL (0.1-1.5); Calcium* 10.4 mg/dL (8.4-10.6); Creatinine* 0.9 mg/dL (0.5-1.5); Estimated Glomerular Filt Rate 61 ml/min
[2024-08-24 09:56] LABS: Lactate Dehydrogenase* 153 U/L (120-246)
[2024-08-24 10:13] LABS: Slide Review Acceptable Review (Acceptable)
== END 2024-08-24 09:19 | disposition home or self-care (01) ==
PROVIDERS: Internal Medicine Hematology; PCP Family Medicine
DX: C83.01 Small cell B-cell lymphoma, lymph nodes of head, face, and neck (principal); C91.10 Chronic lymphocytic leukemia of B-cell type not having achieved remission
CPT/HCPCS: 36415; 82247; 82310; 82565; 83615; 84075; 84132; 84450; 85025

== ENCOUNTER 2024-11-11 09:46 | Outpatient (CLI) | payer MEDICARE, OTHER, SELFPAY | END 2024-11-11 09:47 | disposition home or self-care (01) | LOC: NFLDUCREF 09:48 | PROVIDERS: PCP Family Medicine; Visit Provider Physician Assistant | DX: R07.89 Other chest pain (principal) | CPT/HCPCS: 84484; 85379 ==

== ENCOUNTER 2024-11-11 13:04 | Emergency (ER) | payer MEDICARE, OTHER, SELFPAY ==
[2024-11-11 13:27] VITALS: BP 169/87; PULSE 71; RESP 20; TEMP 36.2; O2SAT 92; BMI 31.2
--- NOTE | 2024-11-11 15:32 | CRLHL7_ITS ---
For Patients: As a result of the Century Cures Act, medical imaging exams and procedure reports are released immediately into your electronic medical record. You may view this report before your referring provider. If you have questions, please contact your health care provider. INDICATION: Chest pain and congestion. TECHNIQUE: CT chest without contrast. COMPARISON: None. FINDINGS: Lungs and pleura: No suspicious nodules or infiltrates. Calcified left upper lobe granuloma. Scattered areas of scarring. No pleural effusions, pleural thickening, or pneumothorax. Heart and vasculature: Heart size is normal. Thoracic aorta and pulmonary artery are normal in caliber. Lymph nodes/mediastinum: No mediastinal, hilar, or axillary adenopathy. Chest wall: No masses. Upper abdomen: No significant findings. Bones: Unremarkable for age. IMPRESSION: No acute or significant abnormalities. No sign of pneumonia or CHF. Please note that all CT scans at this facility use dose modulation, iterative reconstruction, and/or weight-based dosing when appropriate to reduce radiation dose to as low as reasonably achievable. Dictated by Omer Echevarria MD @ 11/11/2024 4:39:05 PM (Electronically Signed)
[2024-11-11 15:59] LABS: Troponin, Point-of-Care* 0.01 ng/ml (0.01-0.04)
[2024-11-11 16:04] LABS: Basophils Percent Auto 0.4 % (0.0-3.0); Eosinophils Percent Auto 4.3 % (0.0-7.0); Hematocrit 46.9 % (33.0-51.0); Hemoglobin* 15.3 gm/dL (12.0-16.0); Immature Granulocytes Pct Auto 0.5 %; Mean Corpuscular HGB Conc 33 gm/dL (32-36); Mean Corpuscular Hemoglobin 28 pg (26-34); Mean Corpuscular Volume 87 fL (80-100); Monocytes Percent Auto 7.3 % (0.0-11.0); Neutrophils Percent Auto 42.5 % (42.0-72.0); Platelet Count* 204 K/uL (140-440); RDW Coefficient of Variation % 13.7 % (11.5-15.5); Red Blood Count 5.38 m/uL (4.00-5.20); White Blood Count* 12.03 K/uL (4.50-11.00)
[2024-11-11 16:09] LABS: Chloride* 106 mmol/L (96-114); Potassium* 3.8 mmol/L (3.6-5.1); Sodium* 140 mmol/L (135-149)
[2024-11-11 16:10] LABS: Slide Review Reflex No
[2024-11-11 16:12] LABS: Anion Gap 5 mEq/L (7-15); Blood Urea Nitrogen* 25 mg/dL (7-30); Calcium* 11.1 mg/dL (8.4-10.6); Carbon Dioxide* 29 mmol/L (20-32); Creatinine* 0.7 mg/dL (0.5-1.5); Est. Creatinine Clearance* 37.09; Estimated Glomerular Filt Rate 83 ml/min; Glucose* 89 mg/dL (60-115)
--- NOTE | 2024-11-11 16:55 | ED_ITS ---
HPI - General Adult General Date Seen: 11/11/24 Chief complaint: Shortness of Breath/Dyspnea Stated complaint: Shortness of breath/chest pressure Time Seen by Provider: 11/11/24 15:12 Source: patient Mode of arrival: ambulatory Limitations: no limitations History of Present Illness HPI narrative: Patient is an 89-year-old female presenting to emergency department for congestion and chest pressure that has been going on for a week. Was sent in by Urgent Care for further evaluation. She states for the past week she has been having upper respiratory symptoms. Denies any associated shortness of breath. Is also noticed some chest pressure that has been going on at the same time. No history of heart disease other than AFib. She states since the symptoms were persisting she went to urgent care for evaluation. He did there they did EKG, troponin, D-dimer all showing no concerning findings. Recommended she come to the emergency department for further evaluation. She states her had pneumonia recently but other that she has no other sick contacts. She denies having a cough at all. States she has been producing a large amount of green mucus from her nostrils. Denies any ear pain. Denies fevers, chills, fatigue, weakness, headache, lightheadedness, dizziness, abdominal pain, nausea/vomiting. No other concerns noted at this time. Related Data Home Medications ?Medication ?Instructions ?Recorded ?Confirmed aspirin 325 mg tablet,delayed 325 mg PO DAILY 05/14/22 11/11/24 release cholecalciferol (vitamin D3) 25 25 mcg PO QDAY 05/14/22 11/11/24 mcg (1,000 unit) capsule multivitamin (Multiple Vitamins 1 tab PO QDAY 05/14/22 11/11/24 tablet) acetaminophen 650 mg 650 mg PO BID PRN 11/24/23 11/11/24 tablet,extended release Previous Rx's ?Medication ?Instructions ?Recorded atorvastatin 40 mg tablet 40 mg PO .Bedtime #90 tabs 05/25/24 diltiazem HCl 120 mg 120 mg PO DAILY #90 caps 05/25/24 capsule,extended release 24 hr hydrochlorothiazide 25 mg tablet 25 mg PO QDAY #90 tabs 05/25/24 losartan 25 mg tablet 25 mg PO DAILY #90 tabs 05/25/24 metoprolol succinate 50 mg 50 mg PO DAILY #90 tabs 07/10/24 tablet,extended release 24 hr Allergies Allergy/AdvReac Type Severity Reaction Status Date / Time amoxicillin Allergy Mild Rash Verified 11/11/24 13:33 meloxicam AdvReac Mild upset Verified 11/11/24 13:33 stomach Review of Systems Status of ROS: Reports: 10 or more systems reviewed and unremarkable except as noted in History and below [facility] Medical History Dyslipidemia ?E78.5 - Hyperlipidemia, unspecified (ICD-10) 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) ?R05.3 - Chronic cough (ICD-10) ?U09.9 - Post covid-19 condition, unspecified (ICD-10) Primary hypertension ?I10 - Essential (primary) hypertension (ICD-10) COVID (11/2023) ?U07.1 - COVID-19 (ICD-10) Osteoarthritis, multiple sites ?M15.9 - Polyosteoarthritis, unspecified (ICD-10) Obesity with body mass index (BMI) of 30.0 to 39.9 ?E66.9 - Obesity, unspecified (ICD-10) Squamous cell carcinoma of right lower leg (2018) ?C44.722 - Squamous cell carcinoma of skin of right lower limb, including hip (ICD-10) Chronic lymphocytic leukemia (10/2017) ?C91.10 - Chronic lymphocytic leukemia of B-cell type not having achieved remission (ICD-10) Atrial fibrillation (03/26/19) ?I48.91 - Unspecified atrial fibrillation (ICD-10) Obstructive sleep apnea treated with continuous positive airway pressure (CPAP) (09/2012) ?G47.33 - Obstructive sleep apnea (adult) (pediatric) (ICD-10) ?Z99.89 - Dependence on other enabling machines and devices (ICD-10) Peripheral edema ?R60.9 - Edema, unspecified (ICD-10) History of recurrent urinary tract infection ?Z87.440 - Personal history of urinary (tract) infections (ICD-10) Health care directive on file (01/10/21) ?Z78.9 - Other specified health status (ICD-10) Surgical History History of tonsillectomy (10/2017) ?Z90.89 - Acquired absence of other organs (ICD-10) History of laparoscopic cholecystectomy (10/27/06) ?Z90.49 - Acquired absence of other specified parts of digestive tract (ICD- 10) History of cataract extraction (07/2014) ?Z98.49 - Cataract extraction status, unspecified eye (ICD-10) History of blepharoplasty (02/2015) ?Z98.890 - Other specified postprocedural states (ICD-10) History of bilateral ligation of fallopian tubes (1979) ?Z98.51 - Tubal ligation status (ICD-10) History of squamous cell carcinoma excision (07/2019) ?Z98.890 - Other specified postprocedural states (ICD-10) ?Z85.9 - Personal history of malignant neoplasm, unspecified (ICD-10) History of dilation and curettage (1979) ?Z98.890 - Other specified postprocedural states (ICD-10) History of colonoscopy ?Z98.890 - Other specified postprocedural states (ICD-10) Family History Father Prostate cancer Stroke, Onset Age: 70 Brother Prostate cancer Mother Stroke, Onset Age: 70 Social History Narrative: , 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, 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, 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-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 consumes alcohol exercises 2-3 times per week-30 min elliptical [address] What is your current living situation?: I presently have a place to live Problems where you live: pests, such as bugs, ants, or mice In the past 12 months, utilities in danger of being shut off: no In past 12 months, lack of transportation kept you from medical appts, meetings, work, or getting things needed for daily living: no In the past 12 mos, have been you worried that your food would run out before you had money to buy more?: never true In the past 12 mos, the food you bought just didn't last and you didn't have money to buy more?: never true Smoking Status: Never smoker Do you use any of these nicotine containing products: None Second hand tobacco smoke exposure: No How often do you have a drink containing alcohol: monthly or less How many standard drinks containing alcohol do you have on a typical day: 1 or 2 AUDIT-C Alcohol total score: 1 Non-prescribed substance use: denies use How often does anyone, including family, friends and others, physically hurt you : never How often does anyone, including family, friends and others, insult or talk down to you: never How often does anyone, including family, friends and others, threaten you with harm: never How often does anyone, including family, friends and others, scream or curse at you: never Health Related Social Needs: Inadequate housing (Z59.1) Exam Narrative: Exam Narrative: Const: Well-nourished, Well-developed, in no distress Eyes: PERRL, no conjunctival injection, and symmetrical lids HENT: Atraumatic external nose and ears. Moist mucous membranes. Neck: Symmetric, trachea midline, No thyromegaly. CVS: RRR, No murmurs or gallops. Peripheral pulses 2+ and equal in all extremities RESP: Unlabored respiratory effort. Clear to auscultation bilaterally. GI: Nontender/Nondistended, No rebound or guarding. MSK:Extremities w/o deformity, Normal Active ROM Skin: Warm, Dry. No rashes or lesions. Neuro: Normal Muscle tone, No focal neurological deficits. Psych: Awake, Alert, & Oriented x3. Appropriate mood and affect. Const: Vital Signs, click to edit/add: Vital Signs - 24 hr 11/11/24 13:27 Temperature 97.2 F L Pulse Rate [Pulse Oximeter] 71 Respiratory Rate 20 Blood Pressure [Ri ght Upper Arm] 169/87 H Pulse Oximetry 92 Oxygen Delivery Me thod Room Air Course Vital Signs Vital signs: Initial Vital Signs Temperature 97.2 F L 11/11/24 13:27 Temperature Source Temporal Artery Scan 11/11/24 13:27 Pulse Rate 71 11/11/24 13:27 Pulse Rhythm Regular 11/11/24 13:27 Respiratory Rate 20 11/11/24 13:27 Blood Pressure 169/87 H 11/11/24 13:27 Blood Pressure Mean 114 H 11/11/24 13:27 Blood Pressure Position Sitting 11/11/24 13:27 Pulse Oximetry 92 11/11/24 13:27 Oxygen Delivery Method Room Air 11/11/24 13:27 Vital Signs Temperature 97.2 F L 11/11/24 13:27 Pulse Rate 71 11/11/24 13:27 Respiratory Rate 20 11/11/24 13:27 Blood Pressure 169/87 H 11/11/24 13:27 Pulse Oximetry 92 11/11/24 13:27 Oxygen Delivery Method Room Air 11/11/24 13:27 Temperature 97.2 F L 11/11/24 13:27 Pulse Rate 71 11/11/24 13:27 Respiratory Rate 20 11/11/24 13:27 Blood Pressure 169/87 H 11/11/24 13:27 Pulse Oximetry 92 11/11/24 13:27 Oxygen Delivery Method Room Air 11/11/24 13:27 Medical Decision Making MDM Narrative Medical decision making narrative: Patient stating 9-year-old female presenting to the emergency department for chest congestion, chest pressure. The differential diagnosis of chest pressure is broad and includes common etiologies such as musculoskeletal strain, GERD, pneumonia, etc. More serious etiologies considered include PE, coronary artery disease, pneumothorax, aortic dissection, aortic aneurysm. She had a D-dimer done earlier today that was age adjusted normal. It was 0.52. Troponin this morning was also normal. Will repeat a troponin here. Will straight to CT scan for better evaluation for possible pneumonia. This will also show any signs of pneumothorax. She is otherwise stable so aortic dissection and aortic aneurysm seem unlikely. Viral swabs earlier today were also negative. Do not need to repeat. Order CBC and a BMP. Lab work returned showing no concerning abnormalities. Her white blood cell count is very mildly elevated at 12.03 but is showing no other signs of infection. EKG and troponin showed no concerning findings. It has been almost 6 hours between troponins so repeat troponin is not necessary. CT scan reviewed by myself and the radiologist shows no concerning abnormalities. There is an area that could possibly be a developing pneumonia but radiology describes as scarring. At this time will hold off on antibiotics. She is otherwise doing well and safe for discharge. She agrees to this plan. Lab Data Labs: Lab Results 11/11/24 11/11/24 Range/Units 15:32 15:46 WBC 12.03 H (4.50-11.00) K/uL RBC 5.38 H (4.00-5.20) m/uL Hgb 15.3 (12.0-16.0) gm/dL Hct 46.9 (33.0-51.0) % MCV 87 (80-100) fL MCH 28 (26-34) pg MCHC 33 (32-36) gm/dL RDW Coeff of Braden 13.7 (11.5-15.5) % Plt Count 204 (140-440) K/uL Neut % (Auto) 42.5 (42.0-72.0) % Lymph % (Auto) 45.0 H (20-44) % [place] % (Auto) 7.3 (0.0-11.0) % Eos % (Auto) 4.3 (0.0-7.0) % Baso % (Auto) 0.4 (0.0-3.0) % Neut # (Auto) 5.10 (1.7-7.0) K/uL Lymph # (Auto) 5.40 H (0.90-2.90) K/uL [place] # (Auto) 0.90 (0.00-0.90) K/UL Eos # (Auto) 0.50 (0.00-0.50) K/uL Baso # (Auto) 0.00 (0.00-0.30) K/uL Abs Immat Gran (auto) 0.10 (0.00-0.30) K/uL Imm/Tot Granulo (auto) 0.5 % Sodium 140 (135-149) mmol/L Potassium 3.8 (3.6-5.1) mmol/L Chloride 106 (96-114) mmol/L Carbon Dioxide 29 (20-32) mmol/L Anion Gap 5 L (7-15) mEq/L BUN 25 (7-30) mg/dL Creatinine 0.7 (0.5-1.5) mg/dL Estimated Creat Clear 37.09 Estimated GFR 83 ml/min Glucose 89 (60-115) mg/dL Calcium 11.1 H (8.4-10.6) mg/dL POC Troponin I 0.01 (0.01-0.04) ng/ml Imaging Data CT scan - chest: Radiologist's impression: No acute or significant abnormalities. No sign of pneumonia or CHF. Please note that all CT scans at this facility use dose modulation, iterative reconstruction, and/or weight-based dosing when appropriate to reduce radiation dose to as low as reasonably achievable. Dictated by Omer Echevarria MD @ 11/11/2024 4:39:05 PM ECG Data Attestation: I personally reviewed and interpreted this ECG as follows: Prior ECG tracings: available for review Interpretation: Normal sinus rhythm with a rate of 64 beats per minute, normal intervals, normal axis, no ST or T-wave abnormalities. Appears similar to previous EKG on file Discharge Plan Discharge Clinical Impression: Chest congestion Patient Disposition: Home, Self-Care Condition: Stable Instructions: Viral Syndrome (ED) Additional Instructions: . Return to emergency department for new or worsening symptoms. If symptoms seem to persist follow-up with your primary care provider next week. Prescriptions: No Action cholecalciferol (vitamin D3) 25 mcg (1,000 unit) capsule 25 mcg PO QDAY aspirin 325 mg tablet,delayed release (DR/EC) 325 mg PO DAILY multivitamin [Multiple Vitamins] Tablet 1 tab PO QDAY acetaminophen 650 mg tablet extended release 650 mg PO BID PRN atorvastatin 40 mg tablet 40 mg PO .Bedtime Qty: 90 3RF diltiazem HCl 120 mg capsule,extended release 24hr 120 mg PO DAILY Qty: 90 3RF hydrochlorothiazide 25 mg tablet 25 mg PO QDAY Qty: 90 3RF losartan 25 mg tablet 25 mg PO DAILY Qty: 90 3RF metoprolol succinate 50 mg tablet extended release 24 hr 50 mg PO DAILY Qty: 90 3RF Follow Up/Referrals: Zoila Carnes MD [Primary Care Provider] - Stand Alone Forms: [employer] Info Instructions
== END 2024-11-11 17:25 | disposition home or self-care (01) ==
PROVIDERS: Emergency Provider Student in an Organized Health Care Education/Training Program; PCP Family Medicine
DX: R07.9 Chest pain, unspecified (principal)
CPT/HCPCS: 36415; 71250; 80048; 84484; 85025; 93005; 99284

== ENCOUNTER 2024-11-28 10:05 | Outpatient (CLI) | payer MEDICARE, OTHER, SELFPAY | END 2024-11-28 10:06 | disposition home or self-care (01) | LOC: NFLDREF 12-05 15:48 | PROVIDERS: PCP Family Medicine; Referring Provider Family Medicine; Visit Provider Family Medicine | DX: I10 Essential (primary) hypertension (principal); I48.11 Longstanding persistent atrial fibrillation | CPT/HCPCS: 80053 ==

== ENCOUNTER 2025-02-27 09:39 | Outpatient (CLI) | payer MEDICARE, OTHER, SELFPAY ==
[2025-02-27 10:17] LABS: Basophils Percent Auto 0.4 % (0.0-3.0); Hemoglobin* 15.5 gm/dL (12.0-16.0); Immature Granulocytes Pct Auto 0.2 %; Lymphocytes Percent Auto 51.6 % (20-44); Mean Corpuscular HGB Conc 33 gm/dL (32-36); Mean Corpuscular Hemoglobin 29 pg (26-34); Mean Corpuscular Volume 87 fL (80-100); Neutrophils Percent Auto 37.8 % (42.0-72.0); Platelet Count* 193 K/uL (140-440); RDW Coefficient of Variation % 13.8 % (11.5-15.5); Red Blood Count 5.39 m/uL (4.00-5.20); White Blood Count* 13.08 K/uL (4.50-11.00)
[2025-02-27 10:20] LABS: Slide Review Reflex Yes
[2025-02-27 10:28] LABS: Potassium* 4.1 mmol/L (3.6-5.1)
[2025-02-27 10:31] LABS: Alkaline Phosphatase* 89 U/L (40-150); Aspartate Amino Transferase* 35 U/L (12-35); Bilirubin Total* 1.5 mg/dL (0.1-1.5); Calcium* 10.9 mg/dL (8.4-10.6); Creatinine* 0.9 mg/dL (0.5-1.5); Estimated Glomerular Filt Rate 61 ml/min; Lactate Dehydrogenase* 170 U/L (120-246)
[2025-02-27 10:43] LABS: Slide Review Acceptable Review (Acceptable)
== END 2025-02-27 09:40 | disposition home or self-care (01) ==
PROVIDERS: PCP Family Medicine; Visit Provider Internal Medicine Hematology
DX: C83.01 Small cell B-cell lymphoma, lymph nodes of head, face, and neck (principal)
CPT/HCPCS: 36415; 82247; 82310; 82565; 83615; 84075; 84132; 84450; 85025